=== PATIENT | female | born 1935 | race Caucasian/White ===

== ENCOUNTER → 2018-01-19 11:34 | Outpatient (CLI) | payer MEDICARE, OTHER, SELFPAY ==
--- NOTE | 2018-01-19 11:41 | RAD_ITS ---
STUDY: X-RAY - RIGHT HAND REASON FOR EXAM: Female, 82 years old. inflammatory polyarthropathy TECHNIQUE: 3 view(s) of the hand. COMPARISON: None. FINDINGS: Normal radiocarpal articulation. Normal distal radioulnar joint. Normal visualized carpal bones. Normal carpal articulations There is degenerative arthrosis of the carpometacarpal articulation of the thumb with lateral subluxation of the first metacarpus. Normal second through fifth carpometacarpal joints. Normal metacarpi. There is degenerative arthrosis of the metacarpophalangeal (MCP) joints. Normal interphalangeal joint of the thumb. Normal proximal and distal phalanges of the thumb. Normal metacarpophalangeal joints of the second through fifth fingers. There is diffuse articular joint space narrowing of the proximal and distal interphalangeal joints of the second through fifth fingers, but without erosive changes or periarticular soft tissue swelling. Normal phalanges of the second through fifth fingers. The soft tissue structures are unremarkable. RAD/Hand Min 3 Views IMPRESSION: Degenerative joint disease of the hand and wrist, as described above. Electronically Signed: Varinder Hernandez MD at 19:20 EDT , Service support ,
--- NOTE | 2018-01-19 11:41 | RAD_ITS ---
STUDY: X-RAY - LEFT HAND REASON FOR EXAM: Female, 82 years old. inflammatory polyarthropathy TECHNIQUE: 3 view(s) of the hand. COMPARISON: None. FINDINGS: Normal radiocarpal articulation. Normal distal radioulnar joint. Normal visualized carpal bones. Normal carpal articulations There is degenerative arthrosis of the carpometacarpal articulation of the thumb with lateral subluxation of the first metacarpus. Normal second through fifth carpometacarpal joints. Normal metacarpi. There is degenerative arthrosis of the metacarpophalangeal (MCP) joints. Normal interphalangeal joint of the thumb. Normal proximal and distal phalanges of the thumb. Normal metacarpophalangeal joints of the second through fifth fingers. There is diffuse articular joint space narrowing of the proximal and distal interphalangeal joints of the second through fifth fingers, but without erosive changes or periarticular soft tissue swelling. Normal phalanges of the second through fifth fingers. The soft tissue structures are unremarkable. RAD/Hand Min 3 Views IMPRESSION: Degenerative joint disease of the hand and wrist, as described above. Electronically Signed: Varinder Hernandez MD at 19:21 EDT , Service support ,
[2018-01-19 14:09] LABS: Absolute Lymphocyte Count 1.97 X10^3/ul (0.83-4.51); Absolute Neutrophil Count 5.2 X10^3/uL (2.0-7.7); Basophil# 0.07 X10^3/uL; Basophil% 0.8 % (0-1); Eosinophil# 0.39 X10^3/uL; Eosinophils% 4.5 % (0-5); Hematocrit 45.4 % (37-47); Hemoglobin 14.1 g/dl (12.0-15.0); Lymphocyte # 1.97 X10^3/ul (4.0); Lymphocyte % 22.6 % (19-41); Mean Corp Hgb Conc 31.1 g/gl (32-36); Mean Corpuscular Hgb 26.8 pg (27.0-32.0); Mean Corpuscular Volume 86.3 fL (81-99); Mean Platelet Vol. 10.6 fl (6.2-12.0); Monocyte# 1.08 X10^3/uL; Monocyte% 12.4 % (0-10); Neutrophil % 59.5 % (47-70); Platelet Count 329 K/mm3 (150-450); RBC Distribution Width CV 14.9 % (11.6-14.6); RBC Distribution Width SD 47.5 fl (35.1-43.9); Red Blood Count 5.26 M/mm3 (4.2-5.4); White Blood Count 8.7 K/mm3 (4.4-11.0)
[2018-01-19 14:10] LABS: POSITIVE COUNT NO; POSITIVE DIFFERENTIAL NO; POSITIVE MORPHOLOGY NO
[2018-01-19 14:53] LABS: ALB/GLOB Ratio 0.8 RATIO (0.9-2.4); AST(SGOT) 28 U/L (15-37); Alanine Aminotransfer ALT/SGPT 15 U/L (13-56); Albumin, Serum 3.4 g/dL (3.2-5.0); Alkaline Phosphatase 67 U/L (45-117); Anion Gap 7 (5-15); BUN 22 mg/dL (7-18); BUN/Creat Ratio 25.6 RATIO (10-20); CRP 6.37 mg/L (0.0-3.0); Calcium,Total 8.8 mg/dL (8.5-10.1); Chloride 102 mmol/L (98-107); Creatinine, Serum 0.86 mg/dL (0.55-1.02); EST Glomerular Filtration Rate 67 mL/min (>60); Est Glom Filt Rate - Afr Amer 81 mL/min (>60); Glucose 66 mg/dL (74-106); Potassium 3.7 mmol/L (3.5-5.1); Protein, Total 7.4 g/dL (6.4-8.2); Rheumatoid Factor < 10.0 IU/mL (<15); Sodium Level 142 mmol/L (136-145); T4 Free Direct 1.03 ng/dL (0.76-1.46); Thyroid Stim Hormone (TSH) 4.09 uIU/mL (0.358-3.74)
[2018-01-19 17:50] LABS: Erythrocyte Sedimentation Rate 9 mm/hr (0-30)
[2018-01-20 08:21] LABS: Vitamin D,25 Hydroxy 63.4 ng/mL (29.95-100.01)
[2018-01-21 09:07] LABS: CCP IgG Antibodies 10 units (0-19); HEPATITIS B SURFACE AG Negative (Negative); Hep B Surface Antibodies Non Reactive (.); Hep C Antibodies <0.1 s/co ratio (0.0-0.9)
[2018-01-21 10:33] LABS: ANTINUCLEAR ANTIBODIES DIRECT Negative (Negative)
== END ==
PROVIDERS: Family Provider Family Medicine; PCP Family Medicine; Visit Provider Internal Medicine Rheumatology
DX: M06.4 Inflammatory polyarthropathy (principal); M81.0 Age-related osteoporosis without current pathological fracture; R94.6 Abnormal results of thyroid function studies; Z79.899 Other long term (current) drug therapy; Z79.52 Long term (current) use of systemic steroids; M15.9 Polyosteoarthritis, unspecified; H35.30 Unspecified macular degeneration; H40.9 Unspecified glaucoma; I10 Essential (primary) hypertension; J30.9 Allergic rhinitis, unspecified; E78.5 Hyperlipidemia, unspecified
CPT/HCPCS: 36415; 73130; 80053; 82306; 84439; 84443; 85025; 85652; 86038; 86140; 86200; 86431; 86706; 86803; 87340

== ENCOUNTER → 2018-01-28 10:58 | Outpatient (CLI) | payer MEDICARE, OTHER, SELFPAY ==
--- NOTE | 2018-01-28 10:59 | BD_ITS ---
STUDY: DUAL ENERGY X-RAY ABSORPTIOMETRY / DXA REASON FOR EXAM: Female, 82 years old. The patient is postmenopausal. Loss of height of 2 inches. TECHNIQUE: Bone Mineral Density (BMD) measurements of lumbar spine and right hip were obtained. COMPARISON: Comparison is made with prior study dated September 24, 2011. FINDINGS: Lumbar Spine (L1-L4): g/cm2 (0.986) / T-score (-1.5) / Z-score (0.4) Findings are suggestive of osteopenia with a moderate fracture risk. Right Femur Total: g/cm2 (0.677) / T-score (-2.6) / Z-score (-0.4) Right Femoral Neck: g/cm2 (0.715) / T-score (-2.3) / Z-score (0.0) The T-Scores on the most recent prior examination were: Lumbar Spine (L1-L4): There has been improvement of bone density since the previous examination. Right Femur Total: which represents a worsening of 1.9%. BD/Dexa Bone Density Study IMPRESSION: The patient is considered osteoporotic as outlined below according to World Mack Organization (WHO) criteria with a high fracture risk. There has been worsening of bone density since the previous examination. Reference Information: The T-score is the number of standard deviations above or below the standard which is normal for young adults at their peak bone mineral density. The World Health Organization (WHO) interprets the T-scores as follows: Above -1 Normal bone density Between -1 and -2.5 Osteopenia Equal to / or below -2.5 Osteoporosis As a practical clinical guideline, osteopenia may be graded as follows: Mild -1 through -1.5 Moderate -1.6 through -2.0 Severe -2.1 through -2.4 The Z-score is the number of standard deviations above or below age-matched controls. A Z-score of less than -1.5 would be considered abnormal. References: 1. NIH Osteoporosis and Related Bone Diseases http://www.osteo.org 2. International Society for Clinical Densitometry http://www.iscd.org 3. National Osteoporosis Foundation http://www.nof.org Electronically Signed: Edward Nicole MD at 12:31 EDT Tel [phone], Service support ,
== END ==
PROVIDERS: Family Provider Family Medicine; PCP Family Medicine; Visit Provider Family Medicine
DX: M81.0 Age-related osteoporosis without current pathological fracture (principal)
CPT/HCPCS: 77080

== ENCOUNTER → 2018-04-16 12:50 | Outpatient (CLI) | payer MEDICARE, OTHER, SELFPAY ==
[2018-04-16 13:57] LABS: Absolute Lymphocyte Count 1.71 X10^3/ul (0.83-4.51); Absolute Neutrophil Count 5.5 X10^3/uL (2.0-7.7); Basophil# 0.09 X10^3/uL; Eosinophil# 0.38 X10^3/uL; Eosinophils% 4.4 % (0-5); Hemoglobin 13.1 g/dl (12.0-15.0); Lymphocyte # 1.71 X10^3/ul (4.0); Lymphocyte % 19.9 % (19-41); Mean Corp Hgb Conc 31.2 g/gl (32-36); Mean Corpuscular Volume 86.6 fL (81-99); Mean Platelet Vol. 10.3 fl (6.2-12.0); Monocyte# 0.85 X10^3/uL; Monocyte% 9.9 % (0-10); Neutrophil # 5.54 X10^3/uL (2.7-7.7); Neutrophil % 64.6 % (47-70); Platelet Count 305 K/mm3 (150-450); RBC Distribution Width CV 18.4 % (11.6-14.6); RBC Distribution Width SD 57.1 fl (35.1-43.9); Red Blood Count 4.85 M/mm3 (4.2-5.4); White Blood Count 8.6 K/mm3 (4.4-11.0)
[2018-04-16 14:02] LABS: POSITIVE COUNT NO; POSITIVE DIFFERENTIAL NO; POSITIVE MORPHOLOGY NO
[2018-04-16 14:15] LABS: ALB/GLOB Ratio 0.9 RATIO (0.9-2.4); AST(SGOT) 22 U/L (15-37); Alanine Aminotransfer ALT/SGPT 14 U/L (13-56); Albumin, Serum 3.4 g/dL (3.2-5.0); Alkaline Phosphatase 60 U/L (45-117); Anion Gap 8 (5-15); BUN 23 mg/dL (7-18); BUN/Creat Ratio 27.9 RATIO (10-20); Calcium,Total 8.8 mg/dL (8.5-10.1); Chloride 105 mmol/L (98-107); Creatinine, Serum 0.82 mg/dL (0.55-1.02); EST Glomerular Filtration Rate 70 mL/min (>60); Est Glom Filt Rate - Afr Amer 85 mL/min (>60); Globulin 3.8 g/dL (2.2-4.2); Glucose 76 mg/dL (74-106); Potassium 3.8 mmol/L (3.5-5.1); Protein, Total 7.2 g/dL (6.4-8.2); Sodium Level 142 mmol/L (136-145)
== END ==
PROVIDERS: Family Provider Family Medicine; PCP Family Medicine; Visit Provider Internal Medicine Rheumatology
DX: M06.09 Rheumatoid arthritis without rheumatoid factor, multiple sites (principal); Z79.899 Other long term (current) drug therapy; Z79.52 Long term (current) use of systemic steroids; M15.9 Polyosteoarthritis, unspecified; H35.30 Unspecified macular degeneration; H40.9 Unspecified glaucoma; I10 Essential (primary) hypertension; J30.9 Allergic rhinitis, unspecified; M81.0 Age-related osteoporosis without current pathological fracture; E78.5 Hyperlipidemia, unspecified
CPT/HCPCS: 36415; 80053; 85025

== ENCOUNTER → 2018-07-06 10:59 | Outpatient (CLI) | payer MEDICARE, OTHER, SELFPAY ==
[2018-07-06 11:53] LABS: Absolute Lymphocyte Count 1.57 X10^3/ul (0.83-4.51); Basophil# 0.08 X10^3/uL; Eosinophil# 0.25 X10^3/uL; Eosinophils% 3.3 % (0-5); Hematocrit 42.2 % (37-47); Hemoglobin 13.2 g/dl (12.0-15.0); Lymphocyte # 1.57 X10^3/ul (4.0); Lymphocyte % 20.4 % (19-41); Mean Corp Hgb Conc 31.3 g/gl (32-36); Mean Corpuscular Hgb 27.6 pg (27.0-32.0); Mean Corpuscular Volume 88.1 fL (81-99); Mean Platelet Vol. 10.1 fl (6.2-12.0); Monocyte# 0.78 X10^3/uL; Monocyte% 10.1 % (0-10); Neutrophil % 65.1 % (47-70); Platelet Count 317 K/mm3 (150-450); RBC Distribution Width CV 16.5 % (11.6-14.6); RBC Distribution Width SD 52.3 fl (35.1-43.9); Red Blood Count 4.79 M/mm3 (4.2-5.4); White Blood Count 7.7 K/mm3 (4.4-11.0)
[2018-07-06 11:56] LABS: POSITIVE COUNT NO; POSITIVE DIFFERENTIAL NO; POSITIVE MORPHOLOGY NO
[2018-07-06 12:25] LABS: BUN 25 mg/dL (7-18); Creatinine, Serum 0.89 mg/dL (0.55-1.02); Glucose 78 mg/dL (74-106)
[2018-07-06 12:26] LABS: ALB/GLOB Ratio 0.8 RATIO (0.9-2.4); AST(SGOT) 24 U/L (15-37); Alanine Aminotransfer ALT/SGPT 17 U/L (13-56); Albumin, Serum 3.3 g/dL (3.2-5.0); Alkaline Phosphatase 69 U/L (45-117); Anion Gap 8 (5-15); BUN/Creat Ratio 28.2 RATIO (10-20); Calcium,Total 8.9 mg/dL (8.5-10.1); Chloride 103 mmol/L (98-107); EST Glomerular Filtration Rate 65 mL/min (>60); Est Glom Filt Rate - Afr Amer 78 mL/min (>60); Globulin 4.2 g/dL (2.2-4.2); Potassium 4.1 mmol/L (3.5-5.1); Protein, Total 7.5 g/dL (6.4-8.2); Sodium Level 142 mmol/L (136-145); T4 Free Direct 1.05 ng/dL (0.76-1.46); Thyroid Stim Hormone (TSH) 3.53 uIU/mL (0.358-3.74)
== END ==
PROVIDERS: Family Provider Family Medicine; PCP Family Medicine; Referring Provider Family Medicine; Visit Provider Family Medicine
DX: M06.09 Rheumatoid arthritis without rheumatoid factor, multiple sites (principal); Z79.899 Other long term (current) drug therapy; Z79.52 Long term (current) use of systemic steroids; M15.9 Polyosteoarthritis, unspecified; R94.6 Abnormal results of thyroid function studies; I10 Essential (primary) hypertension
CPT/HCPCS: 36415; 80053; 84439; 84443; 85025

== ENCOUNTER → 2018-10-14 13:58 | Outpatient (CLI) | payer MEDICARE, OTHER, SELFPAY ==
[2017-10-11 15:14] VITALS: BMI 21.7
[2018-10-14 15:41] LABS: Absolute Lymphocyte Count 1.32 X10^3/ul (0.83-4.51); Absolute Neutrophil Count 5.7 X10^3/uL (2.0-7.7); Basophil# 0.07 X10^3/uL; Basophil% 0.9 % (0-1); Eosinophil# 0.22 X10^3/uL; Eosinophils% 2.7 % (0-5); Hematocrit 40.6 % (37-47); Hemoglobin 12.3 g/dl (12.0-15.0); Lymphocyte # 1.32 X10^3/ul (4.0); Lymphocyte % 16.5 % (19-41); Mean Corp Hgb Conc 30.3 g/gl (32-36); Mean Corpuscular Hgb 27.1 pg (27.0-32.0); Mean Corpuscular Volume 89.4 fL (81-99); Mean Platelet Vol. 10.2 fl (6.2-12.0); Monocyte# 0.67 X10^3/uL; Monocyte% 8.4 % (0-10); Neutrophil # 5.71 X10^3/uL (2.7-7.7); Neutrophil % 71.3 % (47-70); Platelet Count 307 K/mm3 (150-450); RBC Distribution Width CV 17.5 % (11.6-14.6); RBC Distribution Width SD 55.2 fl (35.1-43.9); Red Blood Count 4.54 M/mm3 (4.2-5.4)
[2018-10-14 16:02] LABS: POSITIVE COUNT NO; POSITIVE DIFFERENTIAL NO; POSITIVE MORPHOLOGY NO
[2018-10-14 16:15] LABS: BUN 19 mg/dL (7-18); Creatinine, Serum 0.89 mg/dL (0.55-1.02); Glucose 74 mg/dL (74-106)
[2018-10-14 16:16] LABS: ALB/GLOB Ratio 0.8 RATIO (0.9-2.4); AST(SGOT) 21 U/L (15-37); Alanine Aminotransfer ALT/SGPT 15 U/L (13-56); Albumin, Serum 3.3 g/dL (3.2-5.0); Alkaline Phosphatase 79 U/L (45-117); Anion Gap 10 (5-15); BUN/Creat Ratio 21.4 RATIO (10-20); Calcium,Total 8.5 mg/dL (8.5-10.1); Chloride 104 mmol/L (98-107); EST Glomerular Filtration Rate 65 mL/min (>60); Est Glom Filt Rate - Afr Amer 78 mL/min (>60); Potassium 3.8 mmol/L (3.5-5.1); Protein, Total 7.3 g/dL (6.4-8.2); Sodium Level 144 mmol/L (136-145)
== END ==
PROVIDERS: Family Provider Family Medicine; PCP Family Medicine; Referring Provider Internal Medicine Rheumatology; Visit Provider Internal Medicine Rheumatology
DX: M06.09 Rheumatoid arthritis without rheumatoid factor, multiple sites (principal); Z79.899 Other long term (current) drug therapy; Z79.52 Long term (current) use of systemic steroids; M15.9 Polyosteoarthritis, unspecified; H35.30 Unspecified macular degeneration; H40.9 Unspecified glaucoma; I10 Essential (primary) hypertension; J30.9 Allergic rhinitis, unspecified; M81.0 Age-related osteoporosis without current pathological fracture; E78.5 Hyperlipidemia, unspecified
CPT/HCPCS: 36415; 80053; 85025

== ENCOUNTER → 2018-11-05 11:32 | Outpatient (CLI) | payer MEDICARE, OTHER, SELFPAY ==
--- NOTE | 2018-11-05 11:38 | US_ITS ---
STUDY: ULTRASOUND OF THE FEMALE PELVIS - COMPLETE REASON FOR EXAM: Female, 83 years old. Pelvic pain. Previous hysterectomy. LMP: TECHNIQUE: Transabdominal TECHNICAL QUALITY: Adequate. COMPARISON: None. FINDINGS: The uterus is surgically absent. Neither ovary definitely seen. There is no fluid in the cul-de-sac. No evidence for mass. US/Pelvic (Non ) IMPRESSION: No gross acute abnormality status post hysterectomy and bilateral oophorectomy. Electronically Signed: Anthony Mcclelland MD at 17:07 EST , Service support ,
== END ==
PROVIDERS: Family Provider Family Medicine; PCP Family Medicine; Referring Provider Urology; Visit Provider Urology
DX: R10.2 Pelvic and perineal pain (principal)
CPT/HCPCS: 76856

== ENCOUNTER → 2019-01-17 | Outpatient (CLI) | payer MEDICARE, OTHER, SELFPAY ==
[2017-10-11 15:14] VITALS: BMI 21.7
[2019-01-17 15:43] LABS: Basophil# 0.04 X10^3/uL; Basophil% 0.4 % (0-1); Eosinophil# 0.05 X10^3/uL; Eosinophils% 0.5 % (0-5); Hematocrit 37.7 % (37-47); Hemoglobin 11.5 g/dl (12.0-15.0); Lymphocyte % 10.2 % (19-41); Mean Corp Hgb Conc 30.5 g/gl (32-36); Mean Corpuscular Hgb 26.3 pg (27.0-32.0); Mean Corpuscular Volume 86.3 fL (81-99); Mean Platelet Vol. 9.8 fl (6.2-12.0); Monocyte# 0.71 X10^3/uL; Monocyte% 7.2 % (0-10); Neutrophil # 8.02 X10^3/uL (2.7-7.7); Neutrophil % 81.5 % (47-70); Platelet Count 460 K/mm3 (150-450); RBC Distribution Width CV 18.7 % (11.6-14.6); RBC Distribution Width SD 57.1 fl (35.1-43.9); Red Blood Count 4.37 M/mm3 (4.2-5.4); White Blood Count 9.8 K/mm3 (4.4-11.0)
[2019-01-17 15:44] LABS: POSITIVE COUNT NO; POSITIVE DIFFERENTIAL NO; POSITIVE MORPHOLOGY NO
[2019-01-17 15:50] LABS: ALB/GLOB Ratio 0.5 RATIO (0.9-2.4); AST(SGOT) 15 U/L (15-37); Alanine Aminotransfer ALT/SGPT 13 U/L (13-56); Albumin, Serum 2.6 g/dL (3.2-5.0); Alkaline Phosphatase 79 U/L (45-117); Anion Gap 7 (5-15); BUN 26 mg/dL (7-18); Calcium,Total 8.6 mg/dL (8.5-10.1); Chloride 100 mmol/L (98-107); Creatinine, Serum 0.96 mg/dL (0.55-1.02); EST Glomerular Filtration Rate 59 mL/min (>60); Est Glom Filt Rate - Afr Amer 71 mL/min (>60); Glucose 94 mg/dL (74-106); Potassium 4.3 mmol/L (3.5-5.1); Protein, Total 7.6 g/dL (6.4-8.2); Sodium Level 137 mmol/L (136-145)
== END | disposition home or self-care (01) ==
LOC: MTLAB 13:32
PROVIDERS: Family Provider Family Medicine; PCP Family Medicine; Referring Provider Internal Medicine Rheumatology; Visit Provider Internal Medicine Rheumatology
DX: M06.00 Rheumatoid arthritis without rheumatoid factor, unspecified site (principal); Z79.899 Other long term (current) drug therapy; Z79.52 Long term (current) use of systemic steroids; M15.9 Polyosteoarthritis, unspecified
CPT/HCPCS: 36415; 80053; 85025

== ENCOUNTER 2019-01-23 14:24 | Emergency (ER) | payer MEDICARE, OTHER, SELFPAY ==
[2019-01-23 14:25] VITALS: BP 151/65; PULSE 63; RESP 17; TEMP 36.5; O2SAT 93; BMI 18.3
--- NOTE | 2019-01-23 14:44 | EKG12_ITS ---
Test Reason : N/V Blood Pressure : / mmHG Vent. Rate : 085 BPM Atrial Rate : 085 BPM P-R Int : 174 ms QRS Dur : 122 ms QT Int : 426 ms P-R-T Axes : 079 018 -54 degrees QTc Int : 506 ms Sinus rhythm with Premature atrial complexes with Aberrant conduction Right bundle branch block T wave abnormality, consider inferolateral ischemia Abnormal ECG Confirmed by RAMESH HOFF, CHASIDY ([id number]), food expeditor ALTON THORNTON ([id number]) on 01/25/2019 3:58:50 PM Referred By: ELAINE Confirmed By:CHASIDY CHANDLER MD
--- NOTE | 2019-01-23 14:45 | CT_ITS ---
STUDY: CT ABDOMEN AND PELVIS WITHOUT CONTRAST REASON FOR EXAM: Female, 83 years old. Abdominal pain RADIATION DOSAGE (If Supplied By Facility): CTDIvol = ( 8.44 ) mGy, DLP = ( 352.23 ) mGycm TECHNIQUE: Transaxial images were obtained from the dome of the diaphragm to the symphysis pubis without oral contrast, and without intravenous contrast. Sagittal and coronal images were reconstructed. Individualized dose optimization techniques were used for this CT. COMPARISON: None. FINDINGS: The visualized lung bases are unremarkable. The visualized portions of the heart are within normal limits. Normal liver. Nonvisualization of the gallbladder. No dilatation of the extrahepatic biliary system. Normal spleen. Normal pancreas. Normal bilateral adrenal glands. Normal right kidney. Normal left kidney. Normal visualized stomach. Normal small intestine. Diverticulosis of the colon. Diffuse colonic fecal retention. The appendix is not visualized. Aneurysm of the abdominal aorta with aortobiiliac stent graft noted. Maximum diameter is approximately 3.6 cm Normal inferior vena cava. Normal retroperitoneum. Normal urinary bladder. Mild fatty density at the femoral canals. Normal abdominal wall. Degenerative vertebral changes. Grade 1 spondylolisthesis at L4-5. Moderate compression of T12 with depressed superior endplate. Previous ORIF of the left femur. CT/Abdomen/Pelvis without Cont IMPRESSION: Colonic diverticulosis. Abdominal aortic aneurysm with aortobiiliac stent graft noted. Electronically Signed: Jr Horvath DO at 15:33 EDT Tel [phone], Service support ,
[2019-01-23 14:53] LABS: Absolute Lymphocyte Count 1.11 X10^3/ul (0.83-4.51); Absolute Neutrophil Count 9.3 X10^3/uL (2.0-7.7); Basophil# 0.05 X10^3/uL; Basophil% 0.5 % (0-1); Eosinophil# 0.03 X10^3/uL; Eosinophils% 0.3 % (0-5); Hematocrit 38.9 % (37-47); Hemoglobin 12.1 g/dl (12.0-15.0); Lymphocyte # 1.11 X10^3/ul (4.0); Mean Corp Hgb Conc 31.1 g/gl (32-36); Mean Corpuscular Hgb 26.9 pg (27.0-32.0); Mean Corpuscular Volume 86.6 fL (81-99); Mean Platelet Vol. 8.9 fl (6.2-12.0); Monocyte# 0.61 X10^3/uL; Monocyte% 5.5 % (0-10); Neutrophil # 9.28 X10^3/uL (2.7-7.7); Neutrophil % 83.5 % (47-70); Platelet Count 451 K/mm3 (150-450); RBC Distribution Width CV 18.5 % (11.6-14.6); RBC Distribution Width SD 57.8 fl (35.1-43.9); Red Blood Count 4.49 M/mm3 (4.2-5.4); White Blood Count 11.1 K/mm3 (4.4-11.0)
[2019-01-23 14:56] LABS: POSITIVE COUNT NO; POSITIVE DIFFERENTIAL NO; POSITIVE MORPHOLOGY NO
[2019-01-23 15:12] LABS: ALB/GLOB Ratio 0.5 RATIO (0.9-2.4); AST(SGOT) 18 U/L (15-37); Alanine Aminotransfer ALT/SGPT 12 U/L (13-56); Albumin, Serum 2.7 g/dL (3.2-5.0); Alkaline Phosphatase 84 U/L (45-117); Anion Gap 7 (5-15); BUN 26 mg/dL (7-18); BUN/Creat Ratio 29.8 RATIO (10-20); Calcium,Total 8.6 mg/dL (8.5-10.1); Chloride 99 mmol/L (98-107); Creatinine, Serum 0.87 mg/dL (0.55-1.02); EST Glomerular Filtration Rate 66 mL/min (>60); Est Glom Filt Rate - Afr Amer 80 mL/min (>60); Estimated Creatinine Clearance 33.43 ml/min; Globulin 5.2 g/dL (2.2-4.2); Glucose 161 mg/dL (74-106); Lipase 216 U/L (73-393); Potassium 3.7 mmol/L (3.5-5.1); Protein, Total 7.9 g/dL (6.4-8.2); Sodium Level 136 mmol/L (136-145)
[2019-01-23] MEDS: Ondansetron 4 MG/2 ML Vial IV (15:14)
[2019-01-23] MEDS: 0.9% Normal Saline 1,000 ML 125 ML IV (15:14)
[2019-01-23 16:43] LABS: Bacteria 0 SEEN /hpf (None Seen); Mucous, Urine 0 SEEN /hpf (<or=2+); Red Blood Cells-Urine 0 SEEN /hpf (0-5); Squamous Epithelial Cells - UA 0 SEEN /hpf (5-10)
[2019-01-23 17:07] LABS: Color, Urine Yellow (Yellow); Glucose, Dipstick Normal (Normal); Ketone-Dipstick Negative (Negative); Leukocyte Esterase-Dipstick 500 /ul (Negative); Nitrite-Dipstick Negative (Negative); Occult Blood-Urine 10 /ul (Negative); Protein-Dipstick 15 mg/dl (Negative); Urine Bilirubin Dipstick Negative (Negative); Urine Clarity Sl. Cloudy (Clear); Urine Urobilinogen Normal (Normal)
[2019-01-23 17:15] LABS: White Blood Cells 0-5 SEEN /hpf (0-5)
--- NOTE | 2019-01-23 17:35 | ED.DCSUM_ITS ---
- ER Visit Summary Date of Service: 01/23/19 Chief Complaint: [Nausea and vomiting as well as abdominal discomfort ] History of Present Illness: The patient is a 83 F presents the emergency department with symptoms for over 3 weeks. Patient had decreased appetite. Decreased p.o. intake. She is lost about 8 pounds in the last 2 weeks. She describes some diffuse abdominal discomfort. Patient was seen by her primary care physician was started on Paxil yesterday. Patient denies any fevers. She denies any blood in her stool or black tarry stool. She denies urinary symptoms. She denies falls or head injuries. [Patient was seen by her primary care physician a few days ago and started on Paxil and vomited x2 after taking it.] Physical Examination: [HEENT-PERRLA, EOMI. Cranial nerves II through XII grossly intact. TMs clear. Mucous membranes moist. No adenopathy. Cardiovascular-regular rate and rhythm without murmur or ectopy Lungs-clear to auscultation, chest wall stable without crepitus or subcu emphysema Abdomen-normoactive bowel sounds, soft. Patient has some mild diffuse tenderness. There is no rebound, rigidity, or perineal signs. Extremities-intact ?4, normal range of motion, normal pulses, atraumatic] Test Results: [EKG obtained arrival shows sinus rhythm with a right bundle branch block and some nonspecific ST changes. Patient also noted to have PACs with occasional PVCs. CBC with differential obtained showed a white count of 11.1, hemoglobin 12, hematocrit 39, placed 451. Chemistries unremarkable. LFTs were normal. Lipase was 216. Urinalysis was normal. CT scan of the abdomen pelvis showed nothing acute.] Emergency Department Course and Treatment: [Patient was medicated with Zofran and was given a liter normal same fluid bolus.] Treatment Plan: [Patient given a prescription for Zofran. Etiology of her symptoms unclear. Patient to continue follow-up with primary care physician.] Disposition: [Discharged home stable condition] Impression: [Abdominal pain Nausea and vomiting] This note was generated with [employer] software. It may contain incorrect words, spelling, and punctuation that were not noted in review of the chart prior to signing ED Disposition - Plan for ED Patient: Referrals: Renetta Carson MD [Primary Care Provider] -
--- NOTE | 2019-01-23 17:35 | ED.DEP ---
ED Disposition - Plan for ED Patient: Instructions: ED Nausea Vomiting, ED Abdominal Pain Unkn Cause Prescriptions: Ondansetron [Zofran Odt] 4 mg PO Q8H PRN PRN #10 tab PRN Reason: Nausea Referrals: Renetta Carson MD [Primary Care Provider] - 3-5 Days
[2019-01-23] MEDS: Ondansetron ODT 4 MG Tablet PO (18:08)
[2019-01-23 18:09] VITALS: BP 142/64; PULSE 80; RESP 16; O2SAT 94
== END 2019-01-23 18:12 | disposition home or self-care (01) ==
LOC: ED 15:19
PROVIDERS: Emergency Provider Emergency Medicine; Family Provider Family Medicine; PCP Family Medicine
DX: R10.84 Generalized abdominal pain (principal); R11.2 Nausea with vomiting, unspecified; Z87.891 Personal history of nicotine dependence
CPT/HCPCS: 74176; 80053; 81001; 83690; 84484; 85025; 93005; 96361; 96374; 99283; J7030; J2405

== ENCOUNTER → 2019-04-05 | Outpatient (CLI) | payer MEDICARE, OTHER, SELFPAY ==
[2019-04-05 14:11] LABS: ALB/GLOB Ratio 0.7 RATIO (0.9-2.4); AST(SGOT) 20 U/L (15-37); Alanine Aminotransfer ALT/SGPT 14 U/L (13-56); Albumin, Serum 3.1 g/dL (3.2-5.0); Alkaline Phosphatase 97 U/L (45-117); Anion Gap 9 (5-15); BUN 21 mg/dL (7-18); BUN/Creat Ratio 25.5 RATIO (10-20); Chloride 102 mmol/L (98-107); Creatinine, Serum 0.82 mg/dL (0.55-1.02); EST Glomerular Filtration Rate 70 mL/min (>60); Est Glom Filt Rate - Afr Amer 85 mL/min (>60); Globulin 4.7 g/dL (2.2-4.2); Glucose 82 mg/dL (74-106); Potassium 3.9 mmol/L (3.5-5.1); Protein, Total 7.8 g/dL (6.4-8.2); Sodium Level 140 mmol/L (136-145)
[2019-04-05 15:21] LABS: Absolute Lymphocyte Count 1.53 X10^3/ul (0.83-4.51); Absolute Neutrophil Count 6.7 X10^3/uL (2.0-7.7); Basophil# 0.06 X10^3/uL; Basophil% 0.7 % (0-1); Eosinophil# 0.09 X10^3/uL; Hematocrit 41.3 % (37-47); Hemoglobin 12.9 g/dl (12.0-15.0); Lymphocyte # 1.53 X10^3/ul (4.0); Lymphocyte % 17.1 % (19-41); Mean Corp Hgb Conc 31.2 g/gl (32-36); Mean Corpuscular Hgb 27.3 pg (27.0-32.0); Mean Corpuscular Volume 87.3 fL (81-99); Mean Platelet Vol. 9.5 fl (6.2-12.0); Monocyte# 0.58 X10^3/uL; Monocyte% 6.5 % (0-10); Neutrophil # 6.67 X10^3/uL (2.7-7.7); Neutrophil % 74.6 % (47-70); Platelet Count 375 K/mm3 (150-450); RBC Distribution Width CV 18.7 % (11.6-14.6); RBC Distribution Width SD 59.9 fl (35.1-43.9); Red Blood Count 4.73 M/mm3 (4.2-5.4); White Blood Count 8.9 K/mm3 (4.4-11.0)
[2019-04-05 15:24] LABS: POSITIVE COUNT NO; POSITIVE DIFFERENTIAL NO; POSITIVE MORPHOLOGY NO
== END | disposition home or self-care (01) ==
LOC: MTLAB 11:52
PROVIDERS: Family Provider Family Medicine; PCP Family Medicine; Referring Provider Internal Medicine Rheumatology; Visit Provider Internal Medicine Rheumatology
DX: M06.00 Rheumatoid arthritis without rheumatoid factor, unspecified site (principal); Z79.899 Other long term (current) drug therapy; Z79.52 Long term (current) use of systemic steroids; M15.9 Polyosteoarthritis, unspecified; H35.30 Unspecified macular degeneration; H40.9 Unspecified glaucoma; I10 Essential (primary) hypertension; J30.9 Allergic rhinitis, unspecified; M81.0 Age-related osteoporosis without current pathological fracture; E78.5 Hyperlipidemia, unspecified
CPT/HCPCS: 36415; 80053; 85025

== ENCOUNTER → 2019-06-29 11:42 | Outpatient (CLI) | payer MEDICARE, OTHER, SELFPAY ==
[2019-06-29 14:32] LABS: Absolute Lymphocyte Count 1.66 X10^3/uL (0.83-4.51); Absolute Neutrophil Count 8.1 X10^3/uL (2.0-7.7); Basophil# 0.12 X10^3/uL; Basophil% 1.1 % (0-1); Eosinophil# 0.14 X10^3/uL; Eosinophils% 1.3 % (0-5); Hematocrit 43.5 % (37-47); Hemoglobin 13.3 g/dL (12.0-15.0); Lymphocyte # 1.66 X10^3/ul (4.0); Lymphocyte % 15.5 % (19-41); Mean Corp Hgb Conc 30.6 g/dL (32-36); Mean Corpuscular Hgb 27.1 pg (27.0-32.0); Mean Corpuscular Volume 88.6 fL (81-99); Mean Platelet Vol. 9.7 fl (6.2-12.0); Monocyte# 0.65 X10^3/uL; Monocyte% 6.1 % (0-10); NRBC Flagged by Analyzer 0 % (0-5); Neutrophil # 8.08 X10^3/uL (2.7-7.7); Neutrophil % 75.4 % (47-70); Platelet Count 436 K/mm3 (150-450); RBC Distribution Width SD 53.1 fl (35.1-43.9); Red Blood Count 4.91 M/mm3 (4.2-5.4); White Blood Count 10.7 K/mm3 (4.4-11.0)
[2019-06-29 14:46] LABS: ALB/GLOB Ratio 0.6 RATIO (0.9-2.4); AST(SGOT) 22 U/L (15-37); Alanine Aminotransfer ALT/SGPT 15 U/L (13-56); Albumin, Serum 3.1 g/dL (3.2-5.0); Alkaline Phosphatase 101 U/L (45-117); Anion Gap 6 (5-15); BUN 28 mg/dL (7-18); BUN/Creat Ratio 28.3 RATIO (10-20); Calcium,Total 9.4 mg/dL (8.5-10.1); Chloride 100 mmol/L (98-107); Creatinine, Serum 0.99 mg/dL (0.55-1.02); EST Glomerular Filtration Rate 57 mL/min (>60); Est Glom Filt Rate - Afr Amer 69 mL/min (>60); Globulin 5.2 g/dL (2.2-4.2); Glucose 108 mg/dL (74-106); Potassium 4.4 mmol/L (3.5-5.1); Protein, Total 8.3 g/dL (6.4-8.2); Sodium Level 137 mmol/L (136-145)
== END ==
PROVIDERS: Family Provider Family Medicine; PCP Family Medicine; Referring Provider Internal Medicine Rheumatology; Visit Provider Internal Medicine Rheumatology
DX: M06.00 Rheumatoid arthritis without rheumatoid factor, unspecified site (principal); Z79.899 Other long term (current) drug therapy; Z79.52 Long term (current) use of systemic steroids; M15.9 Polyosteoarthritis, unspecified; H35.30 Unspecified macular degeneration; H40.9 Unspecified glaucoma; I10 Essential (primary) hypertension; J30.9 Allergic rhinitis, unspecified; M81.0 Age-related osteoporosis without current pathological fracture; E78.5 Hyperlipidemia, unspecified
CPT/HCPCS: 36415; 80053; 85025

== ENCOUNTER 2019-08-12 08:49 | Emergency (ER) | payer MEDICARE, OTHER, SELFPAY ==
[2019-08-12 08:50] VITALS: BP 159/83; PULSE 80; RESP 15; TEMP 37.1; O2SAT 96; BMI 19.3
--- NOTE | 2019-08-12 08:58 | EKG12_ITS ---
Test Reason : Blood Pressure : / mmHG Vent. Rate : 069 BPM Atrial Rate : 069 BPM P-R Int : 178 ms QRS Dur : 152 ms QT Int : 436 ms P-R-T Axes : 090 029 -18 degrees QTc Int : 467 ms Sinus rhythm with frequent Premature ventricular complexes Right bundle branch block T wave abnormality, consider inferolateral ischemia Abnormal ECG Confirmed by ALBERTO HOFF, ERIC ([id number]), publications editor ADRIENNE KAMARA ([id number]) on 08/15/2019 10:00:24 AM Referred By: SHAHLA Confirmed By:ERIC DOMINGUEZ MD
--- NOTE | 2019-08-12 08:58 | RAD_ITS ---
STUDY: X-RAY CHEST REASON FOR EXAM: Female, 83 years old. Acute onset of weakness. TECHNIQUE: Single AP portable view of the chest. COMPARISON: Comparison is made with prior examination dated October 07, 2017. FINDINGS: EKG electrode are seen. Hyperinflation with stable elevation of the right hemidiaphragm. There is no demonstrated pleural abnormality. Normal size heart. Normal mediastinum and ricardo. Normal visualized pulmonary arteries. There is atherosclerotic calcification of the aortic arch with tortuosity. There are diffuse degenerative changes of the visualized thoracic spine. Normal visualized ribs, clavicles, and shoulders. An endoluminal stent grafting is seen in the abdominal aorta. RAD/Chest 1 View (Portable) IMPRESSION: Hyperinflation. No acute abnormality is seen. Electronically Signed: Edward Nicole, at 9:53 EDT , Service support ,
--- NOTE | 2019-08-12 08:59 | ED.VIS.GEN ---
History of Present Illness Chief Complaint: Weakness Detail of Chief Complaint: Generalized weakness and feeling hot Informant: Patient Onset: Today Current Severity: Mild Maximum Severity: Moderate Narrative: Patient states she woke at 6 AM this morning feeling very hot. She feels generally weak. She felt fine when she went to bed last night. She states she has had hot flashes previously, but they were typically only last a few minutes. This is persisted for several hours. Patient denies recent URI symptoms. She denies chest pain or shortness of breath. She denies abdominal pain, nausea, or vomiting. She does report some dysuria. She has a history of rheumatoid arthritis and is currently on methotrexate and Humira. Past Medical History - Allergies and Home Meds Allergies/Adverse Reactions: Allergies metronidazole [From Flagyl] Allergy (Verified 08/12/19 09:59) Hives acetaminophen [From Darvocet-N] Adverse Reaction (Verified 08/12/19 09:59) Nausea/Vom/Diarrhea codeine Adverse Reaction (Verified 08/12/19 09:59) Vomiting hydrocodone [From Vicodin] Adverse Reaction (Verified 08/12/19 09:59) Vomiting naproxen [From Aleve] Adverse Reaction (Verified 08/12/19 09:59) Nausea/Vom/Diarrhea oxycodone [From Percocet] Adverse Reaction (Verified 08/12/19 09:59) Nausea/Vom/Diarrhea propoxyphene [From Darvocet-N] Adverse Reaction (Verified 08/12/19 09:59) Nausea/Vom/Diarrhea Primary Care Physician: Renetta Carson MD [Primary Care Provider] - Prior records reviewed: Yes Past Medical History: - - Reviewed Surgical History: hysterectomy, total knee arthroplasty - Left, - - B/L Carpal tunnel Lives: Alone Smoking Status: Former smoker Review of Systems General: Reports: - - Feels hot but no noted fever.. Denies: Chills, Fever, Malaise Eyes: Denies: Visual changes - bilaterally ENT: Denies: Bilateral ear pain Cardiovascular: Denies: Chest pain Respiratory: Denies: Dyspnea, Cough Gastrointestinal: Denies: Abdominal pain, Nausea, Vomiting, Diarrhea Genitourinary: Reports: Dysuria Musculoskeletal: Denies: Back pain, Extremity Pain Skin: Denies: Rash Neurological: Denies: Headache Endocrine: Denies: Polyuria, Polydipsia Hematologic: Denies: Easy bruising Allergy: Denies: Uticaria Physical Exam Vital Signs/Narrative: Vital Signs Temp Pulse Resp BP Pulse Ox 08/12/19 08:50 98.7 F 80 15 159/83 H 96 Inital Vital Signs reviewed: Yes General: Well nourished, Well developed Head: Normocephalic ENT: Moist mucous membranes Neck: Supple Cardiovascular: Irregular Respiratory: No distress, CTA bilaterally Abdomen: Soft, Nontender Extremities: Nontender, No edema Skin: Normal color, No rash Neurological: Alert, Oriented x3, Normal Strength, Normal Sensation Psychological: Normal affect Diagnostic/Tx/Re-eval Impressions Chest X-Ray 08/12/19 08:58 IMPRESSION: Hyperinflation. No acute abnormality is seen. Electronically Signed: Edward Nicole, at 9:53 EDT , Service support , 08/12/19 08:58 Chest 1 View (Portable) [RAD] Stat Laboratory Results 08/12/19 08/12/19 08/12/19 08:55 08:55 09:44 WBC 9.2 RBC 4.76 Hgb 13.2 Hct 42.5 MCV 89.3 MCH 27.7 MCHC 31.1 L RDW Std Deviation 53.9 H RDW Coeff of Niranjan 16.7 H Plt Count 361 MPV 9.5 Immature Gran % (Auto) 0.300 Neut % (Auto) 73.6 H Lymph % (Auto) 16.1 L Pickett % (Auto) 7.3 Eos % (Auto) 1.6 Baso % (Auto) 1.1 H Absolute Neuts (auto) 6.8 Absolute Lymphs (auto) 1.48 Nucleated RBC % 0 Sodium 137 Potassium 3.9 Chloride 102 Carbon Dioxide 28.0 Anion Gap 7 BUN 19 H Creatinine 0.75 Estim Creat Clear Calc 30.68 Est GFR (MDRD) Af Amer 94 Est GFR (MDRD) Non-Af 78 BUN/Creatinine Ratio 25.2 H Glucose 108 H Calcium 8.9 Troponin I 0.019 TSH 4.02 H Urine Color Yellow Urine Clarity Sl. Cloudy Urine pH 7.0 Ur Specific [place] 1.010 Urine Protein Negative Urine Glucose (UA) Normal Urine Ketones 15 H Urine Occult Blood Negative Urine Nitrite Negative Urine Bilirubin Negative Urine Urobilinogen Normal Ur Leukocyte Esterase Negative Urine RBC 0 SEEN Urine WBC 0 SEEN Ur Squamous Epith Cells 0-5 SEEN Urine Bacteria 1+ Urine Mucus 0 SEEN - EKG Initial EKG Interpretation: Sinus Rhythm - Sinus at 69 with frequent PVCs. Right bundle branch block is noted. This is unchanged when compared to prior study from January 2019. - Medical Decision Making Patient was given IV fluids. On repeat evaluation she does feel improved. She is able to ambulate in the halls without difficulty. She will be discharged home with her daughter at this time. She was encouraged to return for any worsening symptoms or concerns. Patient and daughter in agreement the plan. ED Disposition - Plan for ED Patient: Disposition: Home or Assisted Living Diagnosis: Weakness Instructions: WEAKNESS, Unk Cause Referrals: Renetta Carson MD [Primary Care Provider] - 3-5 Days if not improving
[2019-08-12 09:07] LABS: Absolute Lymphocyte Count 1.48 X10^3/uL (0.83-4.51); Absolute Neutrophil Count 6.8 X10^3/uL (2.0-7.7); Basophil% 1.1 % (0-1); Eosinophil# 0.15 X10^3/uL; Eosinophils% 1.6 % (0-5); Hematocrit 42.5 % (37-47); Hemoglobin 13.2 g/dL (12.0-15.0); Lymphocyte # 1.48 X10^3/ul (4.0); Lymphocyte % 16.1 % (19-41); Mean Corp Hgb Conc 31.1 g/dL (32-36); Mean Corpuscular Hgb 27.7 pg (27.0-32.0); Mean Corpuscular Volume 89.3 fL (81-99); Mean Platelet Vol. 9.5 fl (6.2-12.0); Monocyte# 0.67 X10^3/uL; Monocyte% 7.3 % (0-10); NRBC Flagged by Analyzer 0 % (0-5); Neutrophil # 6.75 X10^3/uL (2.7-7.7); Neutrophil % 73.6 % (47-70); Platelet Count 361 K/mm3 (150-450); RBC Distribution Width CV 16.7 % (11.6-14.6); RBC Distribution Width SD 53.9 fl (35.1-43.9); Red Blood Count 4.76 M/mm3 (4.2-5.4); White Blood Count 9.2 K/mm3 (4.4-11.0)
[2019-08-12 09:29] LABS: Anion Gap 7 (5-15); BUN 19 mg/dL (7-18); BUN/Creat Ratio 25.2 RATIO (10-20); Calcium,Total 8.9 mg/dL (8.5-10.1); Chloride 102 mmol/L (98-107); Creatinine, Serum 0.75 mg/dL (0.55-1.02); EST Glomerular Filtration Rate 78 mL/min (>60); Est Glom Filt Rate - Afr Amer 94 mL/min (>60); Estimated Creatinine Clearance 30.68 ml/min; Glucose 108 mg/dL (74-106); Potassium 3.9 mmol/L (3.5-5.1); Sodium Level 137 mmol/L (136-145); Thyroid Stim Hormone (TSH) 4.02 uIU/mL (0.358-3.74)
[2019-08-12 09:47] LABS: Mucous, Urine 0 SEEN /hpf (<or=2+); Red Blood Cells-Urine 0 SEEN /hpf (0-5); White Blood Cells 0 SEEN /hpf (0-5)
[2019-08-12] MEDS: 0.9% Normal Saline 1,000 ML 150 ML IV (09:53)
[2019-08-12 10:03] LABS: Color, Urine Yellow (Yellow); Glucose, Dipstick Normal (Normal); Ketone-Dipstick 15 mg/dl (Negative); Leukocyte Esterase-Dipstick Negative /ul (Negative); Nitrite-Dipstick Negative (Negative); Occult Blood-Urine Negative /ul (Negative); Protein-Dipstick Negative (Negative); Urine Bilirubin Dipstick Negative (Negative); Urine Clarity Sl. Cloudy (Clear); Urine Urobilinogen Normal (Normal)
[2019-08-12 10:11] LABS: Bacteria 1+ /hpf (None Seen); Squamous Epithelial Cells - UA 0-5 SEEN /hpf (5-10)
[2019-08-12 10:53] VITALS: BP 136/71
[2019-08-12 11:03] VITALS: BP 137/84; PULSE 72; RESP 15; O2SAT 98
== END 2019-08-12 11:04 | disposition home or self-care (01) ==
PROVIDERS: Emergency Provider Emergency Medicine; Family Provider Family Medicine; PCP Family Medicine
DX: R53.1 Weakness (principal); R68.89 Other general symptoms and signs; R30.0 Dysuria; I49.3 Ventricular premature depolarization; I45.10 Unspecified right bundle-branch block; M06.9 Rheumatoid arthritis, unspecified; Z79.899 Other long term (current) drug therapy; Z87.891 Personal history of nicotine dependence
CPT/HCPCS: 71045; 80048; 81001; 84443; 84484; 85025; 87086; 93005; 96360; 99285; J7030; A4216

== ENCOUNTER → 2019-09-20 13:08 | Outpatient (CLI) | payer MEDICARE, OTHER, SELFPAY ==
[2019-09-20 13:57] LABS: Absolute Neutrophil Count 6.1 X10^3/uL (2.0-7.7); Basophil# 0.09 X10^3/uL; Basophil% 1.1 % (0-1); Eosinophil# 0.14 X10^3/uL; Eosinophils% 1.6 % (0-5); Hematocrit 42.6 % (37-47); Hemoglobin 13.1 g/dL (12.0-15.0); Lymphocyte % 17.6 % (19-41); Mean Corp Hgb Conc 30.8 g/dL (32-36); Mean Corpuscular Hgb 27.2 pg (27.0-32.0); Mean Corpuscular Volume 88.6 fL (81-99); Mean Platelet Vol. 9.3 fl (6.2-12.0); Monocyte% 8.2 % (0-10); NRBC Flagged by Analyzer 0 % (0-5); Neutrophil # 6.06 X10^3/uL (2.7-7.7); Neutrophil % 71.3 % (47-70); Platelet Count 370 K/mm3 (150-450); RBC Distribution Width CV 16.7 % (11.6-14.6); RBC Distribution Width SD 52.8 fl (35.1-43.9); Red Blood Count 4.81 M/mm3 (4.2-5.4); White Blood Count 8.5 K/mm3 (4.4-11.0)
[2019-09-20 14:31] LABS: ALB/GLOB Ratio 0.7 RATIO (0.9-2.4); AST(SGOT) 17 U/L (15-37); Alanine Aminotransfer ALT/SGPT 13 U/L (13-56); Albumin, Serum 3.1 g/dL (3.2-5.0); Alkaline Phosphatase 91 U/L (45-117); Anion Gap 5 (5-15); BUN 16 mg/dL (7-18); BUN/Creat Ratio 16.6 RATIO (10-20); Calcium,Total 8.9 mg/dL (8.5-10.1); Chloride 101 mmol/L (98-107); Creatinine, Serum 0.96 mg/dL (0.55-1.02); EST Glomerular Filtration Rate 59 mL/min (>60); Est Glom Filt Rate - Afr Amer 71 mL/min (>60); Globulin 4.7 g/dL (2.2-4.2); Glucose 125 mg/dL (74-106); Potassium 4.2 mmol/L (3.5-5.1); Protein, Total 7.8 g/dL (6.4-8.2); Sodium Level 137 mmol/L (136-145)
== END ==
PROVIDERS: Family Provider Family Medicine; PCP Family Medicine; Referring Provider Internal Medicine Rheumatology; Visit Provider Internal Medicine Rheumatology
DX: M06.00 Rheumatoid arthritis without rheumatoid factor, unspecified site (principal); Z79.899 Other long term (current) drug therapy; Z79.52 Long term (current) use of systemic steroids; M15.9 Polyosteoarthritis, unspecified; H35.30 Unspecified macular degeneration; H40.9 Unspecified glaucoma; I10 Essential (primary) hypertension; J30.9 Allergic rhinitis, unspecified; M81.0 Age-related osteoporosis without current pathological fracture; E78.5 Hyperlipidemia, unspecified
CPT/HCPCS: 36415; 80053; 85025

== ENCOUNTER → 2019-12-21 13:33 | Outpatient (CLI) | payer MEDICARE, OTHER, SELFPAY ==
[2019-12-21 15:30] LABS: Absolute Lymphocyte Count 1.58 X10^3/uL (0.83-4.51); Absolute Neutrophil Count 7.3 X10^3/uL (2.0-7.7); Eosinophil# 0.14 X10^3/uL; Eosinophils% 1.4 % (0-5); Hematocrit 41.1 % (37-47); Hemoglobin 12.8 g/dL (12.0-15.0); Lymphocyte # 1.58 X10^3/ul (4.0); Mean Corp Hgb Conc 31.1 g/dL (32-36); Mean Corpuscular Hgb 27.6 pg (27.0-32.0); Mean Corpuscular Volume 88.8 fL (81-99); Mean Platelet Vol. 10.4 fl (6.2-12.0); Monocyte# 0.74 X10^3/uL; Monocyte% 7.5 % (0-10); NRBC Flagged by Analyzer 0 % (0-5); Neutrophil # 7.29 X10^3/uL (2.7-7.7); Neutrophil % 73.8 % (47-70); Platelet Count 325 K/mm3 (150-450); RBC Distribution Width CV 18.7 % (11.6-14.6); RBC Distribution Width SD 58.4 fl (35.1-43.9); Red Blood Count 4.63 M/mm3 (4.2-5.4); White Blood Count 9.9 K/mm3 (4.4-11.0)
[2019-12-21 15:46] LABS: ALB/GLOB Ratio 0.7 RATIO (0.9-2.4); AST(SGOT) 19 U/L (15-37); Alanine Aminotransfer ALT/SGPT 15 U/L (13-56); Albumin, Serum 3.2 g/dL (3.2-5.0); Alkaline Phosphatase 87 U/L (45-117); Anion Gap 5 (5-15); BUN 19 mg/dL (7-18); BUN/Creat Ratio 21.8 RATIO (10-20); Calcium,Total 8.8 mg/dL (8.5-10.1); Chloride 101 mmol/L (98-107); Creatinine, Serum 0.87 mg/dL (0.55-1.02); EST Glomerular Filtration Rate 66 mL/min (>60); Est Glom Filt Rate - Afr Amer 80 mL/min (>60); Globulin 4.7 g/dL (2.2-4.2); Glucose 84 mg/dL (74-106); Potassium 4.1 mmol/L (3.5-5.1); Protein, Total 7.9 g/dL (6.4-8.2); Sodium Level 136 mmol/L (136-145)
== END ==
PROVIDERS: PCP Family Medicine; Referring Provider Internal Medicine Rheumatology; Visit Provider Internal Medicine Rheumatology
DX: M06.00 Rheumatoid arthritis without rheumatoid factor, unspecified site (principal); Z79.899 Other long term (current) drug therapy; Z79.52 Long term (current) use of systemic steroids; M15.9 Polyosteoarthritis, unspecified; H35.30 Unspecified macular degeneration; H40.9 Unspecified glaucoma; I10 Essential (primary) hypertension; J30.9 Allergic rhinitis, unspecified; M81.0 Age-related osteoporosis without current pathological fracture; E78.5 Hyperlipidemia, unspecified
CPT/HCPCS: 36415; 80053; 85025

== ENCOUNTER → 2020-03-19 | Outpatient (CLI) | payer MEDICARE, OTHER, SELFPAY ==
[2020-03-19 17:46] LABS: Absolute Lymphocyte Count 1.66 X10^3/uL (0.83-4.51); Absolute Neutrophil Count 7.8 X10^3/uL (2.0-7.7); Basophil# 0.08 X10^3/uL; Basophil% 0.8 % (0-1); Hematocrit 41.1 % (37-47); Hemoglobin 12.3 g/dL (12.0-15.0); Lymphocyte # 1.66 X10^3/ul (4.0); Lymphocyte % 16.1 % (19-41); Mean Corp Hgb Conc 29.9 g/dL (32-36); Mean Corpuscular Volume 90.1 fL (81-99); Mean Platelet Vol. 9.6 fl (6.2-12.0); Monocyte# 0.66 X10^3/uL; Monocyte% 6.4 % (0-10); NRBC Flagged by Analyzer 0 % (0-5); Neutrophil # 7.75 X10^3/uL (2.7-7.7); Neutrophil % 75.3 % (47-70); Platelet Count 412 K/mm3 (150-450); RBC Distribution Width CV 15.5 % (11.6-14.6); RBC Distribution Width SD 50.7 fl (35.1-43.9); Red Blood Count 4.56 M/mm3 (4.2-5.4); White Blood Count 10.3 K/mm3 (4.4-11.0)
[2020-03-19 18:01] LABS: ALB/GLOB Ratio 0.6 RATIO (0.9-2.4); AST(SGOT) 18 U/L (15-37); Alanine Aminotransfer ALT/SGPT 13 U/L (13-56); Albumin, Serum 2.9 g/dL (3.2-5.0); Alkaline Phosphatase 87 U/L (45-117); Anion Gap 7 (5-15); BUN 27 mg/dL (7-18); BUN/Creat Ratio 28.5 RATIO (10-20); Calcium,Total 8.8 mg/dL (8.5-10.1); Chloride 101 mmol/L (98-107); Creatinine, Serum 0.95 mg/dL (0.55-1.02); EST Glomerular Filtration Rate 60 mL/min (>60); Est Glom Filt Rate - Afr Amer 72 mL/min (>60); Glucose 124 mg/dL (74-106); Potassium 3.7 mmol/L (3.5-5.1); Protein, Total 7.9 g/dL (6.4-8.2); Sodium Level 139 mmol/L (136-145)
== END | disposition home or self-care (01) ==
LOC: MTLAB 15:39
PROVIDERS: PCP Family Medicine; Referring Provider Internal Medicine Rheumatology; Visit Provider Internal Medicine Rheumatology
DX: M06.00 Rheumatoid arthritis without rheumatoid factor, unspecified site (principal); M15.9 Polyosteoarthritis, unspecified; H35.30 Unspecified macular degeneration; H40.9 Unspecified glaucoma; I10 Essential (primary) hypertension; J30.9 Allergic rhinitis, unspecified; M81.0 Age-related osteoporosis without current pathological fracture; E78.5 Hyperlipidemia, unspecified; Z79.52 Long term (current) use of systemic steroids; Z79.899 Other long term (current) drug therapy
CPT/HCPCS: 36415; 80053; 85025

== ENCOUNTER → 2020-06-15 11:07 | Outpatient (CLI) | payer MEDICARE, OTHER, SELFPAY ==
[2020-06-15 12:23] LABS: Absolute Neutrophil Count 5.6 X10^3/uL (2.0-7.7); Basophil# 0.07 X10^3/uL; Basophil% 0.9 % (0-1); Eosinophil# 0.17 X10^3/uL; Eosinophils% 2.1 % (0-5); Hematocrit 41.9 % (37-47); Hemoglobin 12.9 g/dL (12.0-15.0); Lymphocyte % 18.4 % (19-41); Mean Corp Hgb Conc 30.8 g/dL (32-36); Mean Corpuscular Hgb 27.3 pg (27.0-32.0); Mean Corpuscular Volume 88.8 fL (81-99); Mean Platelet Vol. 10.1 fl (6.2-12.0); Monocyte# 0.82 X10^3/uL; NRBC Flagged by Analyzer 0 % (0-5); Neutrophil # 5.57 X10^3/uL (2.7-7.7); Neutrophil % 68.1 % (47-70); Platelet Count 373 K/mm3 (150-450); RBC Distribution Width CV 17.1 % (11.6-14.6); RBC Distribution Width SD 54.1 fl (35.1-43.9); Red Blood Count 4.72 M/mm3 (4.2-5.4); White Blood Count 8.2 K/mm3 (4.4-11.0)
[2020-06-15 13:07] LABS: ALB/GLOB Ratio 0.7 RATIO (0.9-2.4); AST(SGOT) 24 U/L (15-37); Alanine Aminotransfer ALT/SGPT 16 U/L (13-56); Alkaline Phosphatase 82 U/L (45-117); Anion Gap 4 (5-15); BUN 20 mg/dL (7-18); BUN/Creat Ratio 24.2 RATIO (10-20); Calcium,Total 8.3 mg/dL (8.5-10.1); Chloride 101 mmol/L (98-107); Creatinine, Serum 0.83 mg/dL (0.55-1.02); EST Glomerular Filtration Rate 70 mL/min (>60); Est Glom Filt Rate - Afr Amer 84 mL/min (>60); Globulin 4.5 g/dL (2.2-4.2); Glucose 63 mg/dL (74-106); Potassium 3.7 mmol/L (3.5-5.1); Protein, Total 7.5 g/dL (6.4-8.2); Sodium Level 137 mmol/L (136-145)
== END ==
PROVIDERS: PCP Family Medicine; Referring Provider Internal Medicine Rheumatology; Visit Provider Internal Medicine Rheumatology
DX: M06.00 Rheumatoid arthritis without rheumatoid factor, unspecified site (principal); Z79.899 Other long term (current) drug therapy; Z79.52 Long term (current) use of systemic steroids; M15.9 Polyosteoarthritis, unspecified; H35.30 Unspecified macular degeneration; H40.9 Unspecified glaucoma; I10 Essential (primary) hypertension; J30.9 Allergic rhinitis, unspecified; M81.0 Age-related osteoporosis without current pathological fracture; E78.5 Hyperlipidemia, unspecified
CPT/HCPCS: 36415; 80053; 85025

== ENCOUNTER → 2020-06-30 08:52 | Outpatient (CLI) | payer MEDICARE, OTHER, SELFPAY ==
--- NOTE | 2020-06-30 08:55 | CT_ITS ---
STUDY: CT ABDOMEN AND PELVIS WITHOUT CONTRAST REASON FOR EXAM: Female, 84 years old. LLQ PAIN RADIATION DOSAGE (If Supplied By Facility): CTDIvol = ( 5.65 ) mGy, DLP = ( 236.23 ) mGycm TECHNIQUE: Transaxial images were obtained from the dome of the diaphragm to the symphysis pubis without oral contrast, and without intravenous contrast. Sagittal and coronal images were reconstructed. Individualized dose optimization techniques were used for this CT. COMPARISON: 01/23/2019 FINDINGS: The visualized lung bases are unremarkable. The visualized portions of the heart are within normal limits. Normal liver. Normal gallbladder and extrahepatic biliary system. Normal spleen. Normal pancreas. Normal bilateral adrenal glands. Normal right kidney. Normal left kidney. Normal visualized stomach. Normal small intestine. There are multiple colonic diverticula consistent with diverticulosis. There is non-visualization of the appendix. 3.2 cm abdominal aortic aneurysm treated with aortic stent graft. Normal inferior vena cava. Normal retroperitoneum. Normal urinary bladder. Normal abdominal wall. Left femoral neck compression screw. Chronic moderate compression fracture of T12 with 5 mm retropulsion into the spinal canal producing moderate spinal stenosis which is unchanged. 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 CT/Abdomen/Pelvis without Cont IMPRESSION: Sigmoid diverticulosis without diverticulitis. Electronically Signed: Rony Burch MD at 9:42 EDT Tel , Service support ,
== END ==
PROVIDERS: PCP Family Medicine; Referring Provider Family Medicine; Visit Provider Family Medicine
DX: K57.92 Diverticulitis of intestine, part unspecified, without perforation or abscess without bleeding (principal)
CPT/HCPCS: 74176

== ENCOUNTER → 2020-09-05 13:50 | Outpatient (CLI) | payer MEDICARE, OTHER, SELFPAY ==
[2020-09-05 15:17] LABS: Absolute Lymphocyte Count 1.48 X10^3/uL (0.83-4.51); Absolute Neutrophil Count 6.2 X10^3/uL (2.0-7.7); Basophil# 0.09 X10^3/uL; Basophil% 1.1 % (0-1); Eosinophil# 0.12 X10^3/uL; Eosinophils% 1.4 % (0-5); Hematocrit 40.9 % (37-47); Hemoglobin 12.5 g/dL (12.0-15.0); Lymphocyte # 1.48 X10^3/ul (4.0); Lymphocyte % 17.3 % (19-41); Mean Corp Hgb Conc 30.6 g/dL (32-36); Mean Corpuscular Hgb 26.7 pg (27.0-32.0); Mean Corpuscular Volume 87.4 fL (81-99); Monocyte# 0.63 X10^3/uL; Monocyte% 7.4 % (0-10); NRBC Flagged by Analyzer 0 % (0-5); Neutrophil # 6.19 X10^3/uL (2.7-7.7); Neutrophil % 72.4 % (47-70); Platelet Count 421 K/mm3 (150-450); RBC Distribution Width CV 18.1 % (11.6-14.6); RBC Distribution Width SD 56.4 fl (35.1-43.9); Red Blood Count 4.68 M/mm3 (4.2-5.4); White Blood Count 8.5 K/mm3 (4.4-11.0)
[2020-09-05 15:42] LABS: ALB/GLOB Ratio 0.8 RATIO (0.9-2.4); AST(SGOT) 17 U/L (15-37); Alanine Aminotransfer ALT/SGPT 12 U/L (13-56); Albumin, Serum 3.4 g/dL (3.2-5.0); Alkaline Phosphatase 96 U/L (45-117); Anion Gap 4 (5-15); BUN 19 mg/dL (7-18); BUN/Creat Ratio 22.3 RATIO (10-20); Calcium,Total 9.2 mg/dL (8.5-10.1); Chloride 103 mmol/L (98-107); Creatinine, Serum 0.85 mg/dL (0.55-1.02); EST Glomerular Filtration Rate 67 mL/min (>60); Est Glom Filt Rate - Afr Amer 81 mL/min (>60); Globulin 4.5 g/dL (2.2-4.2); Glucose 81 mg/dL (74-106); Potassium 4.1 mmol/L (3.5-5.1); Protein, Total 7.9 g/dL (6.4-8.2); Sodium Level 138 mmol/L (136-145)
== END ==
PROVIDERS: PCP Family Medicine; Referring Provider Internal Medicine Rheumatology; Visit Provider Internal Medicine Rheumatology
DX: M06.00 Rheumatoid arthritis without rheumatoid factor, unspecified site (principal); Z79.899 Other long term (current) drug therapy; Z79.52 Long term (current) use of systemic steroids; M15.9 Polyosteoarthritis, unspecified; H35.30 Unspecified macular degeneration; H40.9 Unspecified glaucoma; I10 Essential (primary) hypertension; J30.9 Allergic rhinitis, unspecified; M81.0 Age-related osteoporosis without current pathological fracture; E78.5 Hyperlipidemia, unspecified
CPT/HCPCS: 36415; 80053; 85025

== ENCOUNTER 2020-11-02 08:55 | Outpatient (RCR) | payer MEDICARE, OTHER, SELFPAY | END 2020-11-02 23:59 | LOC: IMMUN 08:55 | PROVIDERS: PCP Family Medicine; Visit Provider Family Medicine | DX: Z23 Encounter for immunization (principal) | CPT/HCPCS: 0011A; 0012A; 91301 ==

== ENCOUNTER → 2020-11-30 13:23 | Outpatient (CLI) | payer MEDICARE, OTHER, SELFPAY ==
[2020-11-30 15:15] LABS: Absolute Lymphocyte Count 1.86 X10^3/uL (0.83-4.51); Absolute Neutrophil Count 9.2 X10^3/uL (2.0-7.7); Basophil# 0.08 X10^3/uL; Basophil% 0.7 % (0-1); Eosinophil# 0.12 X10^3/uL; Hematocrit 38.9 % (37-47); Hemoglobin 11.5 g/dL (12.0-15.0); Lymphocyte # 1.86 X10^3/ul (4.0); Lymphocyte % 15.4 % (19-41); Mean Corp Hgb Conc 29.6 g/dL (32-36); Mean Corpuscular Hgb 25.7 pg (27.0-32.0); Mean Corpuscular Volume 86.8 fL (81-99); Monocyte# 0.78 X10^3/uL; Monocyte% 6.4 % (0-10); NRBC Flagged by Analyzer 0 % (0-5); Neutrophil # 9.17 X10^3/uL (2.7-7.7); Neutrophil % 75.7 % (47-70); Platelet Count 469 K/mm3 (150-450); RBC Distribution Width CV 18.6 % (11.6-14.6); RBC Distribution Width SD 58.3 fl (35.1-43.9); Red Blood Count 4.48 M/mm3 (4.2-5.4); White Blood Count 12.1 K/mm3 (4.4-11.0)
[2020-11-30 15:30] LABS: ALB/GLOB Ratio 0.5 RATIO (0.9-2.4); AST(SGOT) 13 U/L (15-37); Alanine Aminotransfer ALT/SGPT 14 U/L (13-56); Alkaline Phosphatase 89 U/L (45-117); Anion Gap 4 (5-15); BUN 18 mg/dL (7-18); BUN/Creat Ratio 23.6 RATIO (10-20); Calcium,Total 7.7 mg/dL (8.5-10.1); Chloride 105 mmol/L (98-107); Creatinine, Serum 0.76 mg/dL (0.55-1.02); EST Glomerular Filtration Rate 76 mL/min (>60); Est Glom Filt Rate - Afr Amer 92 mL/min (>60); Globulin 4.3 g/dL (2.2-4.2); Glucose 123 mg/dL (74-106); Potassium 3.6 mmol/L (3.5-5.1); Protein, Total 6.3 g/dL (6.4-8.2); Sodium Level 139 mmol/L (136-145)
== END ==
PROVIDERS: PCP Family Medicine; Referring Provider Internal Medicine Rheumatology; Visit Provider Internal Medicine Rheumatology
DX: M06.00 Rheumatoid arthritis without rheumatoid factor, unspecified site (principal); Z79.899 Other long term (current) drug therapy; Z79.52 Long term (current) use of systemic steroids; M47.897 Other spondylosis, lumbosacral region; H40.9 Unspecified glaucoma; M15.9 Polyosteoarthritis, unspecified; H35.30 Unspecified macular degeneration; I10 Essential (primary) hypertension; J30.9 Allergic rhinitis, unspecified; M81.0 Age-related osteoporosis without current pathological fracture; E78.5 Hyperlipidemia, unspecified
CPT/HCPCS: 36415; 80053; 85025

== ENCOUNTER 2021-02-11 15:32 | Emergency (ER) | payer MEDICARE, OTHER, SELFPAY ==
[2021-02-11 15:33] VITALS: BP 141/81; PULSE 80; RESP 17; TEMP 36.3; O2SAT 94; BMI 18.1
--- NOTE | 2021-02-11 16:32 | EX.ED.DYSGE1 ---
HPI History of Present Illness Chief Complaint: Nausea/Vomiting Narrative Narrative: 85-year-old female presents with nausea, vomiting. She states she is unable to keep anything down for the past 2 days. She denies abdominal pain. Denies chest pain. Family states that she has been fatigued and short of breath with this. She denies fever. Denies headache. She complains of decreased appetite. Prior similar symptoms: Yes Recent Illness/Hospitalization: No PFSH PFS Medical History (Updated 02/11/21 @ 19:[address] Laura Mccoy MD) Former smoker GERD (gastroesophageal reflux disease) Rheumatoid arthritis Home Medications Cranberry Plus Vitamin C 1 ea PO DAILY 10/08/17 [History Last Taken Unknown] esomeprazole magnesium [Nexium] 20 mg PO DAILY 10/08/17 [History Last Taken 10/11/17] ipratropium bromide 2 sprays NARES DAILY 10/08/17 [History Last Taken 10/11/17] latanoprost 1 drp EACH EYE QHS 10/08/17 [History Last Taken 10/11/17] Premarin 1 applic PO QWEEK 01/23/19 [History Last Taken Unknown] adalimumab [Humira] 40 mg SQ Q28D 01/23/19 [History Last Taken Unknown] calcium carbonate 500 mg PO DAILY 01/23/19 [History Last Taken Unknown] folic acid 2 tab PO DAILY 01/23/19 [History Last Taken Unknown] methotrexate sodium 6 tab PO QWEEK 01/23/19 [History Last Taken Unknown] cholecalciferol (vitamin D3) 1,000 unit PO DAILY 08/12/19 [History Last Taken Unknown] ondansetron 4 mg PO Q8H PRN PRN #10 tab 02/11/21 [Rx Last Taken Unknown] Allergy/AdvReac Type Severity Reaction Status Date / Time metronidazole [From Flagyl] Allergy Hives Verified 02/11/21 15:35 acetaminophen AdvReac Nausea/Vom/ Verified 02/11/21 15:35 [From Darvocet-N] Diarrhea codeine AdvReac Vomiting Verified 02/11/21 15:35 hydrocodone [From Vicodin] AdvReac Vomiting Verified 02/11/21 15:35 naproxen [From Aleve] AdvReac Nausea/Vom/ Verified 02/11/21 15:35 Diarrhea oxycodone [From Percocet] AdvReac Nausea/Vom/ Verified 02/11/21 15:35 Diarrhea propoxyphene AdvReac Nausea/Vom/ Verified 02/11/21 15:35 [From Darvocet-N] Diarrhea Surgical History (Updated 02/11/21 @ 17:43 by Lori House RN) History of appendectomy Social History Smoking Status: Former smoker ROS ROS ED Constitutional Constitutional ED: Denies fever(s) Eyes Eyes: Denies change in vision ENT ENT ED: Denies rhinorrhea or sore throat Cardiovascular Cardiovascular: Denies chest pain or palpitations Respiratory/Chest Respiratory/Chest: Reports dyspnea; Denies cough Gastrointestinal Gastrointestinal: Reports nausea and vomiting; Denies abdominal pain, constipation or diarrhea Genitourinary Genitourinary ED: Denies dysuria Musculoskeletal Musculoskeletal: Denies myalgias Integumentary Denies rash Neurologic Neurologic: Denies headache(s) Psychiatric Psychiatric: Denies suicidal thoughts EXAM Physical Exam Const Vital Signs: 02/11/21 15:33 02/11/21 17:39 02/11/21 19:13 Temperature 97.4 F L Temperature Source Temporal Pulse Rate 80 97 108 H Respiratory Rate 17 16 18 Blood Pressure 141/81 H 134/90 H 112/82 H Blood Pressure Mean 101 104 92 Pulse Ox 94 96 92 Oxygen Delivery Method Room Air Room Air Room Air Positive well nourished and well developed General Appearance ED: well developed HEENT Reports normocephalic, head/scalp atraumatic and dry mucous membranes Mouth ED: Yes dry mucous membranes Mouth: dry mucous membranes Eyes PERRL and EOMs intact bilaterally Neck supple General: Negative for tenderness Chest Wall inspection of chest normal Resp normal respiratory effort and clear to auscultation bilaterally Cardio regular rate and regular rhythm GI non-tender and non-distended Palpation: soft; Negative for guarding or rebound tenderness present no CVA tenderness Extremity normal to inspection Neuro oriented x3 Sensorium / Orientation: alert Psych mental status grossly normal MDM MDM MDM Narrative Medical decision making narrative: Patient was given IV fluids, Zofran. Lab Data Attestation: I reviewed the patient's lab results. Labs: Laboratory Results - last 24 hr 02/11/21 02/11/21 02/11/21 17:00 17:00 17:55 WBC 11.2 H RBC 4.52 Hgb 12.0 Hct 39.8 MCV 88.1 MCH 26.5 L MCHC 30.2 L RDW Std Deviation 57.8 H RDW Coeff of Niranjan 18.4 H Plt Count 385 MPV 9.2 Immature Gran % (Auto) 0.400 Neut % (Auto) 82.2 H Lymph % (Auto) 11.9 L Hinds % (Auto) 4.7 Eos % (Auto) 0.3 Baso % (Auto) 0.5 Absolute Neuts (auto) 9.2 H Absolute Lymphs (auto) 1.33 Nucleated RBC % 0 Sodium 134 L Potassium 4.6 Chloride 97 L Carbon Dioxide 30.0 Anion Gap 7 BUN 23 H Creatinine 0.93 Estim Creat Clear Calc 29.85 Est GFR (MDRD) Af Amer 74 Est GFR (MDRD) Non-Af 61 BUN/Creatinine Ratio 24.8 H Glucose 92 Calcium 8.8 Total Bilirubin 0.60 AST 16 ALT 11 L Alkaline Phosphatase 96 Troponin I < 0.015 Total Protein 6.9 Albumin 2.6 L Globulin 4.3 H Albumin/Globulin Ratio 0.6 L Lipase 103 Urine Color Yellow Urine Clarity Clear Urine pH 7.0 Ur Specific [place] 1.010 Urine Protein Negative Urine Glucose (UA) Normal Urine Ketones Negative Urine Occult Blood 10 H Urine Nitrite Negative Urine Bilirubin Negative Urine Urobilinogen Normal Ur Leukocyte Esterase 25 H Urine RBC 0 SEEN Urine WBC 0-5 SEEN Ur Squamous Epith Cells 0-5 SEEN Urine Bacteria 0 SEEN Urine Mucus 0 SEEN Microbiology Past 72 Hours 02/11/21 16:55 Nasal Secretion SARS-CoV-2 Antigen (Rapid) - Final Laboratory Results 02/11/21 17:00: WBC 11.2 H, RBC 4.52, Hgb 12.0, Hct 39.8, MCV 88.1, MCH 26.5 L, MCHC 30.2 L, RDW Std Deviation 57.8 H, RDW Coeff of Niranjan 18.4 H, Plt Count 385, MPV 9.2, Immature Gran % (Auto) 0.400, Neut % (Auto) 82.2 H, Lymph % (Auto) 11.9 L, Hinds % (Auto) 4.7, Eos % (Auto) 0.3, Baso % (Auto) 0.5, Absolute Neuts (auto) 9.2 H, Absolute Lymphs (auto) 1.33, Nucleated RBC % 0 02/11/21 17:00: Sodium 134 L, Potassium 4.6, Chloride 97 L, Carbon Dioxide 30.0, Anion Gap 7, BUN 23 H, Creatinine 0.93, Estim Creat Clear Calc 29.85, Est GFR (MDRD) Af Amer 74, Est GFR (MDRD) Non-Af 61, BUN/Creatinine Ratio 24.8 H, Glucose 92, Calcium 8.8, Total Bilirubin 0.60, AST 16, ALT 11 L, Alkaline Phosphatase 96, Troponin I < 0.015, Total Protein 6.9, Albumin 2.6 L, Globulin 4.3 H, Albumin/Globulin Ratio 0.6 L, Lipase 103 02/11/21 17:55: Urine Color Yellow, Urine Clarity Clear, Urine pH 7.0, Ur Specific [place] 1.010, Urine Protein Negative, Urine Glucose (UA) Normal, Urine Ketones Negative, Urine Occult Blood 10 H, Urine Nitrite Negative, Urine Bilirubin Negative, Urine Urobilinogen Normal, Ur Leukocyte Esterase 25 H, Urine RBC 0 SEEN, Urine WBC 0-5 SEEN, Ur Squamous Epith Cells 0-5 SEEN, Urine Bacteria 0 SEEN, Urine Mucus 0 SEEN Radiography Diagnostic Testing: Radiology Impression Chest X-Ray 02/11/21 17:05 IMPRESSION: No acute radiographic abnormalities. COPD. Electronically Signed: Bro Son MD at 17:43 EDT Tel , Service support , EKG Initial EKG: Attestation: I personally reviewed and interpreted this EKG as follows: Interpretation: Sinus Rhythm and RBBB Prior EKG tracings: available for review Treatment and Re-Evaluation Comments:: Patient is feeling much improved on reevaluation. With ambulation her pulse ox remains 93% on room air. Her Covid test is negative. She is able to tolerate p.o. in the emergency department. She and family are comfortable with discharge home. She is given a prescription for Zofran. Advised to follow-up with her primary care physician. Advised return to the ED for worsening complaints. Discharge Plan Triage Chief Complaint: Nausea/Vomiting ED Provider: Laura Mccoy Dx/Rx/DC Orders Clinical Impression: Dehydration Instructions: ED Vomiting (Adult) Prescriptions: New ondansetron [ondansetron] 4 MG tablet 4 mg PO Q8H PRN PRN (Reason: Nausea) Qty: 10 RF: 0 No Action latanoprost 0.005 drops 1 drp Each Eye QHS RF: 0 ipratropium bromide 0.06 spray,non-aerosol 2 sprays NARES DAILY RF: 0 esomeprazole magnesium [Nexium] 20 MG capsule 20 mg PO DAILY RF: 0 Cranberry Plus Vitamin C 1 EACH capsule 1 ea PO DAILY RF: 0 methotrexate sodium 2.5 MG tablet 6 tab PO QWEEK RF: 0 folic acid 1 MG tablet 2 tab PO DAILY RF: 0 calcium carbonate 500 MG tablet,chewable 500 mg PO DAILY RF: 0 Humira 40 MG/0.8 ML syringe kit 40 mg SQ Q28D RF: 0 Premarin 1 applic PO QWEEK RF: 0 cholecalciferol (vitamin D3) 1,000 UNIT tablet 1,000 unit PO DAILY RF: 0 Primary Care Provider: Renetta Carson Referrals: Renetta Carson MD [Primary Care Provider] - Disposition Disposition: Home, self care
--- NOTE | 2021-02-11 16:43 | EKG12_ITS ---
Test Reason : Blood Pressure : / mmHG Vent. Rate : 096 BPM Atrial Rate : 096 BPM P-R Int : 320 ms QRS Dur : 128 ms QT Int : 392 ms P-R-T Axes : 085 -74 095 degrees QTc Int : 495 ms Sinus rhythm with marked sinus arrhythmia with 1st degree A-V block Right bundle branch block Left anterior fascicular block Bifascicular block Abnormal ECG Confirmed by ALBERTO HOFF, ERIC ([id number]), writer editor ADRIENNE KAMARA ([id number]) on 02/13/2021 9:04:00 AM Referred By: SANDRA Confirmed By:ERIC DOMINGUEZ MD
[2021-02-11] MEDS: Ondansetron 4 MG/2 ML Vial IV (17:04)
--- NOTE | 2021-02-11 17:05 | RAD_ITS ---
INDICATION: sob EXAMINATION/TECHNIQUE: X-RAY - XR Chest 1 View COMPARISON: 08/12/2019. FINDINGS: Hyperinflated lungs. Left basilar scarring/atelectasis. Tortuous and calcified thoracic aorta. The heart is not enlarged. No pleural effusion or pneumothorax. No acute osseous abnormalities. RAD/Chest 1 View (Portable) IMPRESSION: No acute radiographic abnormalities. COPD. Electronically Signed: Bro Son MD at 17:43 EDT Tel , Service support ,
--- NOTE | 2021-02-11 17:05 | NURSING ---
[facility], TALKED TO JASPER. SOMEONE WILL BE IN TO SEE PATIENT
[2021-02-11 17:15] LABS: Absolute Lymphocyte Count 1.33 X10^3/uL (0.83-4.51); Absolute Neutrophil Count 9.2 X10^3/uL (2.0-7.7); Basophil# 0.06 X10^3/uL; Basophil% 0.5 % (0-1); Eosinophil# 0.03 X10^3/uL; Eosinophils% 0.3 % (0-5); Hematocrit 39.8 % (37-47); Lymphocyte # 1.33 X10^3/ul (0.83-4.51); Lymphocyte % 11.9 % (19-41); Mean Corp Hgb Conc 30.2 g/dL (32-36); Mean Corpuscular Hgb 26.5 pg (27.0-32.0); Mean Corpuscular Volume 88.1 fL (81-99); Mean Platelet Vol. 9.2 fl (6.2-12.0); Monocyte# 0.52 X10^3/uL; Monocyte% 4.7 % (0-10); NRBC Flagged by Analyzer 0 % (0-5); Neutrophil # 9.18 X10^3/uL (2.7-7.7); Neutrophil % 82.2 % (47-70); Platelet Count 385 K/mm3 (150-450); RBC Distribution Width CV 18.4 % (11.6-14.6); RBC Distribution Width SD 57.8 fl (35.1-43.9); Red Blood Count 4.52 M/mm3 (4.2-5.4); White Blood Count 11.2 K/mm3 (4.4-11.0)
[2021-02-11 17:39] VITALS: BP 134/90; PULSE 97; RESP 16; O2SAT 96
[2021-02-11 18:10] LABS: Bacteria 0 SEEN /hpf (None Seen); Mucous, Urine 0 SEEN /hpf (<or=2+); Red Blood Cells-Urine 0 SEEN /hpf (0-5)
[2021-02-11 18:22] LABS: Color, Urine Yellow (Yellow); Glucose, Dipstick Normal (Normal); Ketone-Dipstick Negative (Negative); Leukocyte Esterase-Dipstick 25 /ul (Negative); Nitrite-Dipstick Negative (Negative); Occult Blood-Urine 10 /ul (Negative); Protein-Dipstick Negative (Negative); Urine Bilirubin Dipstick Negative (Negative); Urine Clarity Clear (Clear); Urine Urobilinogen Normal (Normal)
[2021-02-11 18:25] LABS: ALB/GLOB Ratio 0.6 RATIO (0.9-2.4); AST(SGOT) 16 U/L (15-37); Alanine Aminotransfer ALT/SGPT 11 U/L (13-56); Albumin, Serum 2.6 g/dL (3.2-5.0); Alkaline Phosphatase 96 U/L (45-117); Anion Gap 7 (5-15); BUN 23 mg/dL (7-18); BUN/Creat Ratio 24.8 RATIO (10-20); Calcium,Total 8.8 mg/dL (8.5-10.1); Chloride 97 mmol/L (98-107); Creatinine, Serum 0.93 mg/dL (0.55-1.02); EST Glomerular Filtration Rate 61 mL/min (>60); Est Glom Filt Rate - Afr Amer 74 mL/min (>60); Estimated Creatinine Clearance 29.85 ml/min; Globulin 4.3 g/dL (2.2-4.2); Glucose 92 mg/dL (74-106); Lipase 103 U/L (73-393); Potassium 4.6 mmol/L (3.5-5.1); Protein, Total 6.9 g/dL (6.4-8.2); Sodium Level 134 mmol/L (136-145)
[2021-02-11 18:28] LABS: Squamous Epithelial Cells - UA 0-5 SEEN /hpf (5-10); White Blood Cells 0-5 SEEN /hpf (0-5)
[2021-02-11 19:13] VITALS: BP 112/82; PULSE 108; RESP 18; O2SAT 92
== END 2021-02-11 19:59 | disposition home or self-care (01) ==
PROVIDERS: Emergency Provider Emergency Medicine; PCP Family Medicine
DX: E86.0 Dehydration (principal); I45.10 Unspecified right bundle-branch block; M06.9 Rheumatoid arthritis, unspecified; K21.9 Gastro-esophageal reflux disease without esophagitis; Z87.891 Personal history of nicotine dependence
CPT/HCPCS: 71045; 80053; 81001; 83690; 84484; 85025; 87426; 93005; 96361; 96374; 99284; J7030; A4216; J2405

== ENCOUNTER → 2021-02-12 14:04 | Outpatient (CLI) | payer MEDICARE, OTHER, SELFPAY ==
[2021-02-11 15:33] VITALS: BMI 18.1
[2021-02-12 15:19] LABS: Absolute Lymphocyte Count 1.56 X10^3/uL (0.83-4.51); Absolute Neutrophil Count 7.5 X10^3/uL (2.0-7.7); Basophil# 0.08 X10^3/uL; Basophil% 0.8 % (0-1); Eosinophil# 0.24 X10^3/uL; Eosinophils% 2.4 % (0-5); Hematocrit 39.4 % (37-47); Hemoglobin 11.8 g/dL (12.0-15.0); Lymphocyte # 1.56 X10^3/ul (0.83-4.51); Lymphocyte % 15.8 % (19-41); Mean Corp Hgb Conc 29.9 g/dL (32-36); Mean Corpuscular Hgb 27.1 pg (27.0-32.0); Mean Corpuscular Volume 90.4 fL (81-99); Mean Platelet Vol. 9.9 fl (6.2-12.0); Monocyte# 0.48 X10^3/uL; Monocyte% 4.8 % (0-10); NRBC Flagged by Analyzer 0 % (0-5); Neutrophil # 7.51 X10^3/uL (2.7-7.7); Neutrophil % 75.9 % (47-70); Platelet Count 417 K/mm3 (150-450); RBC Distribution Width CV 18.1 % (11.6-14.6); Red Blood Count 4.36 M/mm3 (4.2-5.4); White Blood Count 9.9 K/mm3 (4.4-11.0)
[2021-02-12 16:07] LABS: ALB/GLOB Ratio 0.6 RATIO (0.9-2.4); AST(SGOT) 15 U/L (15-37); Alanine Aminotransfer ALT/SGPT 11 U/L (13-56); Albumin, Serum 2.7 g/dL (3.2-5.0); Alkaline Phosphatase 94 U/L (45-117); Anion Gap 4 (5-15); BUN 18 mg/dL (7-18); BUN/Creat Ratio 18.2 RATIO (10-20); Calcium,Total 8.9 mg/dL (8.5-10.1); Chloride 101 mmol/L (98-107); Creatinine, Serum 0.99 mg/dL (0.55-1.02); EST Glomerular Filtration Rate 57 mL/min (>60); Est Glom Filt Rate - Afr Amer 68 mL/min (>60); Globulin 4.8 g/dL (2.2-4.2); Glucose 94 mg/dL (74-106); Potassium 3.7 mmol/L (3.5-5.1); Protein, Total 7.5 g/dL (6.4-8.2); Sodium Level 137 mmol/L (136-145); Thyroid Stim Hormone (TSH) 5.95 uIU/mL (0.358-3.74)
[2021-02-12 16:11] LABS: Vitamin D,25 Hydroxy 67.1 ng/mL
== END ==
PROVIDERS: PCP Family Medicine; Referring Provider Internal Medicine Rheumatology; Visit Provider Internal Medicine Rheumatology
DX: M06.00 Rheumatoid arthritis without rheumatoid factor, unspecified site (principal); Z79.899 Other long term (current) drug therapy; Z79.52 Long term (current) use of systemic steroids; M15.9 Polyosteoarthritis, unspecified; M47.897 Other spondylosis, lumbosacral region; H35.30 Unspecified macular degeneration; H40.9 Unspecified glaucoma; I10 Essential (primary) hypertension; J30.9 Allergic rhinitis, unspecified; M81.0 Age-related osteoporosis without current pathological fracture; E78.5 Hyperlipidemia, unspecified; E03.9 Hypothyroidism, unspecified; E55.9 Vitamin D deficiency, unspecified
CPT/HCPCS: 36415; 80053; 82306; 84439; 84443; 85025

== ENCOUNTER → 2021-04-30 14:13 | Outpatient (CLI) | payer MEDICARE, OTHER, SELFPAY ==
[2021-04-30 17:40] LABS: Absolute Lymphocyte Count 1.69 X10^3/uL (0.83-4.51); Absolute Neutrophil Count 9.7 X10^3/uL (2.0-7.7); Basophil% 0.8 % (0-1); Eosinophil# 0.08 X10^3/uL; Eosinophils% 0.6 % (0-5); Hematocrit 39.8 % (37-47); Lymphocyte # 1.69 X10^3/ul (0.83-4.51); Lymphocyte % 13.7 % (19-41); Mean Corp Hgb Conc 30.2 g/dL (32-36); Mean Corpuscular Volume 89.6 fL (81-99); Mean Platelet Vol. 9.4 fl (6.2-12.0); Monocyte# 0.72 X10^3/uL; Monocyte% 5.8 % (0-10); NRBC Flagged by Analyzer 0 % (0-5); Neutrophil # 9.68 X10^3/uL (2.7-7.7); Neutrophil % 78.6 % (47-70); Platelet Count 425 K/mm3 (150-450); RBC Distribution Width CV 18.6 % (11.6-14.6); RBC Distribution Width SD 60.5 fl (35.1-43.9); Red Blood Count 4.44 M/mm3 (4.2-5.4); White Blood Count 12.3 K/mm3 (4.4-11.0)
[2021-04-30 17:55] LABS: ALB/GLOB Ratio 0.6 RATIO (0.9-2.4); AST(SGOT) 19 U/L (15-37); Alanine Aminotransfer ALT/SGPT 15 U/L (13-56); Albumin, Serum 2.7 g/dL (3.2-5.0); Alkaline Phosphatase 86 U/L (45-117); Anion Gap 6 (5-15); BUN 19 mg/dL (7-18); BUN/Creat Ratio 19.6 RATIO (10-20); Calcium,Total 8.5 mg/dL (8.5-10.1); Chloride 99 mmol/L (98-107); Creatinine, Serum 0.97 mg/dL (0.55-1.02); EST Glomerular Filtration Rate 58 mL/min (>60); Est Glom Filt Rate - Afr Amer 70 mL/min (>60); Globulin 4.2 g/dL (2.2-4.2); Glucose 151 mg/dL (74-106); Potassium 4.2 mmol/L (3.5-5.1); Protein, Total 6.9 g/dL (6.4-8.2); Sodium Level 137 mmol/L (136-145)
== END ==
PROVIDERS: PCP Family Medicine; Referring Provider Internal Medicine Rheumatology; Visit Provider Internal Medicine Rheumatology
DX: M06.00 Rheumatoid arthritis without rheumatoid factor, unspecified site (principal); Z79.899 Other long term (current) drug therapy; Z79.52 Long term (current) use of systemic steroids; M15.9 Polyosteoarthritis, unspecified; M47.897 Other spondylosis, lumbosacral region; H35.30 Unspecified macular degeneration; H40.9 Unspecified glaucoma; I10 Essential (primary) hypertension; J30.9 Allergic rhinitis, unspecified; M81.0 Age-related osteoporosis without current pathological fracture; E78.5 Hyperlipidemia, unspecified
CPT/HCPCS: 36415; 80053; 85025

== ENCOUNTER → 2021-05-10 13:09 | Outpatient (CLI) | payer MEDICARE, OTHER, SELFPAY ==
[2021-05-10 15:49] LABS: T4 Free Direct 1.14 ng/dL (0.76-1.46); Thyroid Stim Hormone (TSH) 3.39 uIU/mL (0.358-3.74)
== END ==
PROVIDERS: PCP Family Medicine; Referring Provider Family Medicine; Visit Provider Family Medicine
DX: M06.00 Rheumatoid arthritis without rheumatoid factor, unspecified site (principal); Z79.899 Other long term (current) drug therapy; Z79.52 Long term (current) use of systemic steroids; M15.9 Polyosteoarthritis, unspecified; M47.897 Other spondylosis, lumbosacral region; H35.30 Unspecified macular degeneration; H40.9 Unspecified glaucoma; I10 Essential (primary) hypertension; J30.9 Allergic rhinitis, unspecified; M81.0 Age-related osteoporosis without current pathological fracture; E78.5 Hyperlipidemia, unspecified; E03.9 Hypothyroidism, unspecified
CPT/HCPCS: 36415; 84439; 84443

== ENCOUNTER → 2021-07-23 14:24 | Outpatient (CLI) | payer MEDICARE, OTHER, SELFPAY ==
[2021-07-23 17:56] LABS: Absolute Lymphocyte Count 2.18 X10^3/uL (0.83-4.51); Absolute Neutrophil Count 8.2 X10^3/uL (2.0-7.7); Basophil% 0.9 % (0-1); Eosinophil# 0.31 X10^3/uL; Eosinophils% 2.7 % (0-5); Hemoglobin 13.7 g/dL (12.0-15.0); Lymphocyte # 2.18 X10^3/ul (0.83-4.51); Lymphocyte % 18.9 % (19-41); Mean Corp Hgb Conc 31.1 g/dL (32-36); Mean Platelet Vol. 10.2 fl (6.2-12.0); Monocyte# 0.69 X10^3/uL; NRBC Flagged by Analyzer 0 % (0-5); Neutrophil # 8.18 X10^3/uL (2.7-7.7); Platelet Count 354 K/mm3 (150-450); RBC Distribution Width CV 17.1 % (11.6-14.6); RBC Distribution Width SD 57.2 fl (35.1-43.9); Red Blood Count 4.73 M/mm3 (4.2-5.4); White Blood Count 11.5 K/mm3 (4.4-11.0)
[2021-07-23 18:11] LABS: ALB/GLOB Ratio 0.7 RATIO (0.9-2.4); AST(SGOT) 22 U/L (15-37); Alanine Aminotransfer ALT/SGPT 19 U/L (13-56); Albumin, Serum 3.2 g/dL (3.2-5.0); Alkaline Phosphatase 75 U/L (45-117); Anion Gap 7 (5-15); BUN 27 mg/dL (7-18); BUN/Creat Ratio 34.6 RATIO (10-20); Calcium,Total 9.2 mg/dL (8.5-10.1); Chloride 99 mmol/L (98-107); Creatinine, Serum 0.78 mg/dL (0.55-1.02); EST Glomerular Filtration Rate 74 mL/min (>60); Est Glom Filt Rate - Afr Amer 90 mL/min (>60); Globulin 4.3 g/dL (2.2-4.2); Glucose 118 mg/dL (74-106); Potassium 3.4 mmol/L (3.5-5.1); Protein, Total 7.5 g/dL (6.4-8.2); Sodium Level 138 mmol/L (136-145)
== END ==
PROVIDERS: PCP Family Medicine; Referring Provider Internal Medicine Rheumatology; Visit Provider Internal Medicine Rheumatology
DX: M06.00 Rheumatoid arthritis without rheumatoid factor, unspecified site (principal); Z79.899 Other long term (current) drug therapy; Z79.52 Long term (current) use of systemic steroids; M15.9 Polyosteoarthritis, unspecified; M47.897 Other spondylosis, lumbosacral region; H35.30 Unspecified macular degeneration; H40.9 Unspecified glaucoma; I10 Essential (primary) hypertension; J30.9 Allergic rhinitis, unspecified; M81.0 Age-related osteoporosis without current pathological fracture; E78.5 Hyperlipidemia, unspecified
CPT/HCPCS: 36415; 80053; 85025

== ENCOUNTER 2021-08-19 19:46 | Emergency (ER) | payer MEDICARE, OTHER, SELFPAY ==
[2021-08-19 19:50] VITALS: BP 136/66; PULSE 78; RESP 16; TEMP 36.4; O2SAT 94; BMI 17.9
[2021-08-19 19:53] VITALS: BP 136/66; PULSE 78; RESP 16; TEMP 36.4; O2SAT 94
[2021-08-19 21:29] LABS: ALB/GLOB Ratio 0.6 RATIO (0.9-2.4); AST(SGOT) 18 U/L (15-37); Alanine Aminotransfer ALT/SGPT 14 U/L (13-56); Albumin, Serum 2.9 g/dL (3.2-5.0); Alkaline Phosphatase 89 U/L (45-117); Anion Gap 6 (5-15); BUN 21 mg/dL (7-18); BUN/Creat Ratio 19.4 RATIO (10-20); Calcium,Total 9.5 mg/dL (8.5-10.1); Chloride 97 mmol/L (98-107); Creatinine, Serum 1.08 mg/dL (0.55-1.02); EST Glomerular Filtration Rate 51 mL/min (>60); Est Glom Filt Rate - Afr Amer 62 mL/min (>60); Estimated Creatinine Clearance 26.24 ml/min; Globulin 4.9 g/dL (2.2-4.2); Glucose 113 mg/dL (74-106); Potassium 4.8 mmol/L (3.5-5.1); Protein, Total 7.8 g/dL (6.4-8.2); Sodium Level 134 mmol/L (136-145)
[2021-08-19 21:34] LABS: Absolute Lymphocyte Count 1.84 X10^3/uL (0.83-4.51); Absolute Neutrophil Count 7.3 X10^3/uL (2.0-7.7); Basophil# 0.07 X10^3/uL; Basophil% 0.7 % (0-1); Eosinophil# 0.05 X10^3/uL; Eosinophils% 0.5 % (0-5); Hematocrit 46.5 % (37-47); Hemoglobin 14.9 g/dL (12.0-15.0); Lymphocyte # 1.84 X10^3/ul (0.83-4.51); Lymphocyte % 18.8 % (19-41); Mean Corpuscular Hgb 28.8 pg (27.0-32.0); Mean Corpuscular Volume 89.8 fL (81-99); Mean Platelet Vol. 9.6 fl (6.2-12.0); Monocyte# 0.48 X10^3/uL; Monocyte% 4.9 % (0-10); NRBC Flagged by Analyzer 0 % (0-5); Neutrophil % 74.7 % (47-70); Platelet Count 389 K/mm3 (150-450); RBC Distribution Width CV 15.7 % (11.6-14.6); RBC Distribution Width SD 50.7 fl (35.1-43.9); Red Blood Count 5.18 M/mm3 (4.2-5.4); White Blood Count 9.8 K/mm3 (4.4-11.0)
--- NOTE | 2021-08-19 22:12 | RAD_ITS ---
STUDY: X-RAY CHEST REASON FOR EXAM: Female, 85 years old. chest pain TECHNIQUE: PA and lateral views of the chest. COMPARISON: 02/11/2021 FINDINGS: Partially visualized aortic stent graft The lungs are clear and expanded. There is no demonstrated pleural abnormality. Normal size heart. Normal mediastinum and ricardo. Normal visualized pulmonary arteries. Normal visualized aortic arch and descending thoracic aorta. Normal visualized thoracic spine. Normal visualized ribs, clavicles, and shoulders. There is no demonstrated abnormality of the visualized soft tissue structures of the upper abdomen. RAD/Chest PA and Lateral IMPRESSION: Normal x-ray examination of the chest. Electronically Signed: Yaya Manley DO at 23:49 EST Tel , Service support ,
[2021-08-19 22:20] VITALS: BP 147/94; PULSE 69; RESP 16; O2SAT 96
[2021-08-19] MEDS: 0.9% Normal Saline 1,000 ML 999 ML IV (22:27)
[2021-08-19] MEDS: Famotidine 200 MG/20 ML MDV 20 MG in 0.9% Normal Saline (Pres. free 8 ML 300 MG IV (22:49)
[2021-08-19 23:01] LABS: Lipase 102 U/L (73-393); Thyroid Stim Hormone (TSH) 2.62 uIU/mL (0.358-3.74); Troponin-I HS 26 pg/mL (3.0-54.0)
--- NOTE | 2021-08-19 23:12 | EKG12_ITS ---
Test Reason : FEVER Blood Pressure : / mmHG Vent. Rate : 072 BPM Atrial Rate : 074 BPM P-R Int : 000 ms QRS Dur : 132 ms QT Int : 446 ms P-R-T Axes : 000 -69 053 degrees QTc Int : 488 ms Atrial fibrillation Left axis deviation Right bundle branch block T wave abnormality, consider lateral ischemia Abnormal ECG Confirmed by ALBERTO HOFF, ERIC ([id number]), food expeditor ADRIENNE KAMARA ([id number]) on 08/21/2021 9:22:39 AM Referred By: SAMEER Confirmed By:ERIC DOMINGUEZ MD
--- NOTE | 2021-08-19 23:13 | EDS_ITS ---
HPI History of Present Illness Chief Complaint: Chest Other Informant: patient and family Narrative Narrative: Patient is a 85-year-old female with history of rheumatoid arthritis, on Humira and methotrexate, hypothyroid, GERD and restless leg syndrome presenting for chest discomfort. Patient states she has been having intermittent episodes where she gets discomfort in her upper central chest where it feels hot and flushed and then she starts to feel short of breath and very anxious. A lot of times she will vomit. These episodes last about an hour at the time. They are normally in the morning but she had an episode yesterday evening. Her family member notes that she does not eat or drink well in general and they are concerned for dehydration. Patient notes that when she does not eat or drink her stomach hurts more which worsens her symptoms. She does have associated nausea. She currently has no symptoms. She denies any chest pain or abdominal pain with these episodes. She has not had an EGD in at least 6 years. She did have a barium swallow at one point but it is been many years as well. Patient notes that even if she drinks too much cold water she will have to spit it up. No other complaints at this time. Patient and family also note that she is in the process of transitioning with her living situations and this is causing her more stress/anxiety. They wonder if some of this could be anxiety related. [facility] Medical History Former smoker GERD (gastroesophageal reflux disease) Rheumatoid arthritis Home Medications Cranberry Plus Vitamin C 1 ea PO DAILY 10/08/17 [History Last Taken Unknown] esomeprazole magnesium [Nexium] 20 mg PO DAILY 10/08/17 [History Last Taken 10/11/17] ipratropium bromide 2 sprays NARES DAILY 10/08/17 [History Last Taken 10/11/17] latanoprost 1 drp EACH EYE QHS 10/08/17 [History Last Taken 10/11/17] Premarin 1 applic PO QWEEK 01/23/19 [History Last Taken Unknown] adalimumab [Humira] 40 mg SQ Q28D 01/23/19 [History Last Taken Unknown] calcium carbonate 500 mg PO DAILY 01/23/19 [History Last Taken Unknown] folic acid 2 tab PO DAILY 01/23/19 [History Last Taken Unknown] methotrexate sodium 6 tab PO QWEEK 01/23/19 [History Last Taken Unknown] cholecalciferol (vitamin D3) 1,000 unit PO DAILY 08/12/19 [History Last Taken Unknown] ondansetron 4 mg PO Q8H PRN PRN #10 tab 02/11/21 [Rx Last Taken Unknown] PreserVision AREDS-2 08/19/21 [History Last Taken Unknown] brimonidine 1 drp EACH EYE BID 08/19/21 [History Last Taken Unknown] levothyroxine 25 mcg PO DAILY 08/19/21 [History Last Taken Unknown] ropinirole 0.25 mg PO DAILY 08/19/21 [History Last Taken Unknown] Allergy/AdvReac Type Severity Reaction Status Date / Time metronidazole [From Flagyl] Allergy Hives Verified 08/19/21 19:47 acetaminophen AdvReac Nausea/Vom/ Verified 08/19/21 19:47 [From Darvocet-N] Diarrhea codeine AdvReac Vomiting Verified 08/19/21 19:47 hydrocodone [From Vicodin] AdvReac Vomiting Verified 08/19/21 19:47 naproxen [From Aleve] AdvReac Nausea/Vom/ Verified 08/19/21 19:47 Diarrhea oxycodone [From Percocet] AdvReac Nausea/Vom/ Verified 08/19/21 19:47 Diarrhea propoxyphene AdvReac Nausea/Vom/ Verified 08/19/21 19:47 [From Darvocet-N] Diarrhea Surgical History History of appendectomy Social History Smoking Status: Former smoker ROS ROS ED Constitutional Constitutional ED: Reports sweats; Denies chills or fever(s) ENT ENT ED: Denies ear pain, rhinorrhea or sore throat Cardiovascular Cardiovascular: Reports as per HPI and chest pain; Denies palpitations Respiratory/Chest Respiratory/Chest: Reports dyspnea; Denies cough Gastrointestinal Gastrointestinal: Reports nausea and vomiting; Denies abdominal pain or diarrhea Genitourinary Genitourinary ED: Denies dysuria or hematuria Musculoskeletal Musculoskeletal: Denies arthralgias or myalgias Integumentary Denies rash Neurologic Neurologic: Denies headache(s), paresthesias or weakness Psychiatric Psychiatric: Reports anxiety; Denies depression, suicidal ideation or suicidal thoughts EXAM Physical Exam Const Vital Signs: 08/19/21 19:50 08/19/21 19:53 08/19/21 22:20 Temperature 97.6 F L 97.6 F L Temperature Source Temporal Temporal Pulse Rate 78 78 69 Respiratory Rate 16 16 16 Blood Pressure 136/66 H 136/66 H 147/94 H Blood Pressure Mean 89 89 111 Pulse Ox 94 94 96 Oxygen Delivery Method Room Air Room Air Room Air 08/20/21 00:35 Temperature Temperature Source Pulse Rate 79 Respiratory Rate 18 Blood Pressure 135/68 H Blood Pressure Mean 90 Pulse Ox 95 Oxygen Delivery Method Room Air Positive well nourished and well developed Constitutional Narrative: Thin General Appearance ED: well developed and NAD HEENT Reports moist mucous membranes normocephalic and atraumatic Eyes PERRL and EOMs intact bilaterally Neck supple and no JVD General: Negative for tenderness Chest Wall inspection of chest normal Resp normal respiratory effort and clear to auscultation bilaterally Cardio regular rate, regular rhythm and no murmurs GI normal to inspection, nondistended, normoactive bowel sounds Back/Spine no CVA tenderness Extremity normal to inspection General Extremety ED: Negative for edema or tenderness General Extremity: Negative for edema Neuro oriented x3 Sensorium / Orientation: awake and alert Motor Exam: Negative for general weakness Psych mental status grossly normal Mood & Affect: anxious; Negative for depressed Skin no rashes or lesions noted Heart Score History: Slightly/Non-Suspicious ECG: Nonspecific Repolarization Age: >/= 65 years Risk Factors: 1 or 2 Risk Factors Troponin: </= Normal Limit Score: 4 MDM MDM MDM Narrative Medical decision making narrative: Patient evaluated for chest pain. Her chest pain is very atypical for ACS and I think is more consistent with some type of esophageal spasm, candidiasis or ulceration. She is currently pain-free in the emergency room. Her work-up is significant for mild elevation of her creatinine. I do suspect she has some underlying dehydration. She is given a liter of IV fluids. She is also given IV famotidine. Patient is referred to GI for outpatient follow-up as I think she would benefit from an EGD. She will follow-up with her PCP. Patient and family member are agreeable with this plan of care. Patient is discharged home in stable condition. She is counseled on return precautions. Cardiac work-up is normal. Initial EKG had poor baseline but questionably showed atrial fibrillation. Repeat had an improved baseline and was sinus rhythm. I do not think patient actually had atrial fibrillation. Lab Data Attestation: I reviewed the patient's lab results. Labs: Laboratory Results - last 24 hr 08/19/21 08/19/21 08/19/21 21:05 21:05 21:05 WBC 9.8 RBC 5.18 Hgb 14.9 Hct 46.5 MCV 89.8 MCH 28.8 MCHC 32.0 RDW Std Deviation 50.7 H RDW Coeff of Niranjan 15.7 H Plt Count 389 MPV 9.6 Immature Gran % (Auto) 0.400 Neut % (Auto) 74.7 H Lymph % (Auto) 18.8 L Ray % (Auto) 4.9 Eos % (Auto) 0.5 Baso % (Auto) 0.7 Absolute Neuts (auto) 7.3 Absolute Lymphs (auto) 1.84 Nucleated RBC % 0 Sodium 134 L Potassium 4.8 Chloride 97 L Carbon Dioxide 31.0 Anion Gap 6 BUN 21 H Creatinine 1.08 H Estim Creat Clear Calc 26.24 Est GFR (MDRD) Af Amer 62 Est GFR (MDRD) Non-Af 51 L BUN/Creatinine Ratio 19.4 Glucose 113 H Calcium 9.5 Total Bilirubin 0.50 AST 18 ALT 14 Alkaline Phosphatase 89 Troponin I High Sens 26 Total Protein 7.8 Albumin 2.9 L Globulin 4.9 H Albumin/Globulin Ratio 0.6 L Lipase 102 TSH 2.62 Radiography Chest X-Ray - ED: 2 View, Read by ED Physician, Read by Radiologist and No Acute Disease Diagnostic Testing: Clinical Impression(s) from Imaging Studies Chest X-Ray 08/19/21 22:12 IMPRESSION: Normal x-ray examination of the chest. Electronically Signed: Yaya Manley DO at 23:49 EST Tel , Service support , Rhythm Strip Rhythm Strip: Sinus Rhythm Rate: 80 Ectopy: None EKG Initial EKG: Attestation: I personally reviewed and interpreted this EKG as follows: Interpretation: Sinus Arrythmia Comments: Sinus arrhythmia rate of 72 Left axis deviation Right bundle branch block T wave inversions in V1 through V4 Poor baseline/artifact present Prior: Unchanged Follow-up EKG: Attestation: I personally reviewed and interpreted this EKG as follows: Interpretation: Sinus Rhythm Comments: Sinus rhythm with first-degree AV block VA interval 264 Left axis deviation Bifascicular block present T wave inversions in V1 through V4 No acute ischemic changes Discharge Plan Triage Chief Complaint: Chest Other ED Provider: Chio Borges Dx/Rx/DC Orders Clinical Impression: Dehydration, Atypical chest pain Instructions: ED Chest Pain, Uncertain Cause, ED Dehydration (Adult) Prescriptions: No Action latanoprost 0.005 drops 1 drp Each Eye QHS RF: 0 ipratropium bromide 0.06 spray,non-aerosol 2 sprays NARES DAILY RF: 0 esomeprazole magnesium [Nexium] 20 MG capsule 20 mg PO DAILY RF: 0 Cranberry Plus Vitamin C 1 EACH capsule 1 ea PO DAILY RF: 0 methotrexate sodium 2.5 MG tablet 6 tab PO QWEEK RF: 0 folic acid 1 MG tablet 2 tab PO DAILY RF: 0 calcium carbonate 500 MG tablet,chewable 500 mg PO DAILY RF: 0 Humira 40 MG/0.8 ML syringe kit 40 mg SQ Q28D RF: 0 Premarin 1 applic PO QWEEK RF: 0 cholecalciferol (vitamin D3) 1,000 UNIT tablet 1,000 unit PO DAILY RF: 0 ondansetron [ondansetron] 4 MG tablet 4 mg PO Q8H PRN PRN (Reason: Nausea) Qty: 10 RF: 0 ropinirole 0.25 mg Tablet 0.25 mg PO DAILY RF: 0 brimonidine 0.2 % Drops 1 drp EACH EYE BID RF: 0 levothyroxine 25 mcg Capsule 25 mcg PO DAILY RF: 0 PreserVision AREDS-2 RF: 0 Primary Care Provider: Renetta Carson Referrals: Renetta Carson MD [Primary Care Provider] - Abdoulaye Barron DO [STAFF PHYSICIAN] - Activity Restrictions/Additional Instructions: Increase Nexium to twice a day. I suspect your chest pain in GI in nature and not your heart. Disposition Disposition: Home, Self Care Discharge Date/Time: 08/20/21 01:04
--- NOTE | 2021-08-19 23:33 | EKG12_ITS ---
Test Reason : REPEAT Blood Pressure : / mmHG Vent. Rate : 079 BPM Atrial Rate : 079 BPM P-R Int : 264 ms QRS Dur : 136 ms QT Int : 450 ms P-R-T Axes : 085 -71 080 degrees QTc Int : 516 ms Sinus rhythm with 1st degree A-V block Right bundle branch block Left anterior fascicular block Bifascicular block Abnormal ECG Confirmed by ALBERTO HOFF, ERIC ([id number]), field map editor ADRIENNE KAMARA ([id number]) on 08/21/2021 9:22:55 AM Referred By: SAMEER Confirmed By:ERIC DOMINGUEZ MD
[2021-08-20 00:35] VITALS: BP 135/68; PULSE 79; RESP 18; O2SAT 95
== END 2021-08-20 01:04 | disposition home or self-care (01) ==
PROVIDERS: Emergency Provider Emergency Medicine; PCP Family Medicine
DX: E86.0 Dehydration (principal); R07.89 Other chest pain; I45.10 Unspecified right bundle-branch block; I44.0 Atrioventricular block, first degree; I45.2 Bifascicular block; E03.9 Hypothyroidism, unspecified; F41.9 Anxiety disorder, unspecified; I48.91 Unspecified atrial fibrillation; G25.81 Restless legs syndrome; K21.9 Gastro-esophageal reflux disease without esophagitis; M06.9 Rheumatoid arthritis, unspecified; Z79.899 Other long term (current) drug therapy; Z87.891 Personal history of nicotine dependence
CPT/HCPCS: 71046; 80053; 83690; 84443; 84484; 85025; 93005; 96361; 96365; 99283; J7030; A4216; J3490

== ENCOUNTER 2021-09-23 10:18 | Day surgery (SDC) | payer MEDICARE, OTHER, SELFPAY ==
--- NOTE | 2021-09-23 | ESO_PTH ---
PATIENT: ADRIA PETERSEN LOC: EN U#:[id number] AGE/SX: 85/F ROOM: RE09/23/[address]: Dr. Abdoulaye Barron DO : 1935 BED: DIS: 09/23/2021 SPEC #: [id number] RECD: 09/23/21 14:54 STATUS: MILAGRO MEEKSTana #: [id number] SHERLYN: 09/23/21 00:[address]: Abdoulaye Barron DEPT: SURGICAL PATHOLOGY RECD BY: Bill Oropeza ENTERED: 09/24/21 10:30 SP TYPE: NICHELLE SMILEY DR: Dr. Renetta Carson MD Tissues: A - Esophagus, NOS B - Gastric mucous membrane Procedures: Special Stain Group II Surgery Specimen Level IV Alcian Blue/PAS (control) HEADER OPERATION: EGD PRE-OP DIAGNOSIS: Esophageal dysphagia, weight loss, hiatal hernia TISSUE SUBMITTED: A ? Distal esophageal biopsies, B ? Gastric body biopsies MICROSCOPIC DIAGNOSIS A. Distal esophagus, biopsy: Gastroesophageal junctional mucosa with mild chronic inflammation. No evidence of goblet cell metaplasia. See comment. B. Gastric body, biopsy: Chronic gastritis. Focal intestinal metaplasia. No evidence of dysplasia. See comment. AM:marilee 09/25/2021 COMMENT A. Alcian blue/PAS stain with matched control supports the above diagnosis. B. Alcian blue/PAS stain with matched control supports the above diagnosis. Immunohistochemistry ([id number]) for P53 and Ki-67 will be performed and results will be reported separately. MICROSCOPIC DESCRIPTION Slides are reviewed. GROSS DESCRIPTION A - Received in fixative is one container labeled with the patient's name and designated distal esophagus biopsy. The specimen consists of multiple irregular fragments of light mendoza soft tissue that in aggregate measure 2 x 1 x 0.1 cm. The specimen is totally submitted in one cassette. B - Received in fixative is one container labeled with the patient's name and designated gastric body biopsy. The specimen consists of multiple irregular fragments of light mendoza soft tissue that in aggregate measure 0.5 x 0.3 x 0.1 cm. The specimen is totally submitted in one cassette. / AM:marilee 09/24/21 TC:3 CPT: 16284 x2, 86028 x2
--- NOTE | 2021-09-23 | IMM_PTH ---
PATIENT: ADRIA PETERSEN LOC: EN U#:[id number] AGE/SX: 85/F ROOM: RE09/23/[address]: Dr. Abdoulaye Barron DO : 1935 BED: DIS: 09/23/2021 SPEC #: [id number] RECD: 09/25/21 11:53 STATUS: MILAGRO RETana #: [id number] SHERLYN: 09/23/21 00:[address]: Abdoulaye Barron DEPT: IMMUNOHISTOCHEMISTRY RECD BY: Sylwia Koehler ENTERED: 09/25/21 11:54 SP TYPE: IMMUNO OT DR: Dr. Renetta Carson MD Tissues: B - Stomach, NOS Procedures: P53 (initial) KI-67 (add) PHYSICIAN & INSTITUTION [place] [id number] SPECIMEN INFORMATION: Tissue Source: B ? Gastric body biopsy Clinical Info: Esophageal dysphagia, weight loss, hiatal hernia Specimen Number: [id number] CPT code: 22200, 90674 METHODOLOGY: Deparaffinized sections of prefer/formalin-fixed tissue or PAP/DQ stained slides are incubated with monoclonal/polyclonal antibodies/oligonucleotide probes. Localization is made via biotin free immunoperoxidase method. Appropriate controls are performed and reacted as expected. Results on target cell population are indicated in the following table: RESULTS: ANTIBODY / CLONE RESULT Block B P53 (DO-7) negative Ki-67 (30-9) positive, low These tests were developed and their performance characteristics determined by [facility]. They may not have been cleared or approved by the U.S. Food and Drug Administration. The FDA has determined that such clearance or approval is not necessary. The above immunohistochemical/dualISH markers are ordered and reviewed by the Pathologist. INTERPRETATION: B. Gastric body, biopsy: Interstitial metaplasia. No evidence of dysplasia. AM:marilee 09/26/2021
[2021-09-23 10:54] VITALS: BP 115/57; PULSE 77; RESP 16; TEMP 36.8; O2SAT 100; BMI 17.9
[2021-09-23] MEDS: Lactated Ringers 1,000 ML 15 ML IV (10:57)
--- NOTE | 2021-09-23 11:04 | HP.PCM_ITS ---
History and Physical Date of Admission: 09/23/21 85 F who presents to the office today for occasional liquid food dysphagia. She is also been experiencing progressive weight loss. Her daughter says her weight goes up and down but currently her BMI is down to 18. She is always struggled with nausea and with her and her daughter called a nervous stomach. She has been on intermittent Reglan therapy for nausea. She has a history of peripheral vascular disease, coronary artery disease and aortic aneurysm status post repair with stent placement. She has had no complications from that surgery. She does take an aspirin on a daily basis. She did have a CT scan abdomen pelvis without oral and IV contrast because of CKD and it showed a moderate size hiatal hernia. She is able to swallow pills and most foods. Her daughter has on a regimen of eating small frequent meals. However she is having a very difficult time keeping her hydrated and she has to come into the emergency room for frequent IV infusions of normal saline. She has been having difficulty with regurgitation of liquids and occasionally food. Daughter feels if she drinks warmer liquids the regurgitation is not as severe. Daughter has found that eating every 2-3 hours she does not have regurgitation. Additionally reports increased nausea, decreased appetite. Symptoms are particularly worse in the morning. PCP prescribed reglan and daughter feels this has been helpful. History of rectocele surgery in 2000, 2007, 2008, 2011 Rheumatoid arthritis (Hum), abdominal aneurysm (stent placed 2007), macular degeneration and glaucoma noted additionally in her history. ROS Eyes Eyes: Positive for vision loss ENT ENT: Positive for difficulty swallowing Gastro GI: Positive for heartburn, difficulty swallowing, nausea/dyspepsia and vomiting Musc Musculoskeletal: Positive for Arthritis and restless legs Neuro Neurology: Positive for restless legs Exam Const General: cooperative and comfortable Nutritional Appearance: average body habitus and well nourished [facility] Head: normal to inspection Ears: hearing grossly normal bilaterally Nose: external nose normal Face and sinus: normal facial exam Mouth: oral mucosae normal Throat: posterior oropharynx normal Eyes General: appearance normal, both eyes and all related structures Neck Neck: normal visual inspection Chest Chest palpation & inspection: normal inspection of the chest and normal palpation of entire chest wall Resp Effort & Inspection: normal respiratory effort Auscultation: Bilateral: Clear to Auscultation Cardio Palpation: normal PMI Rate: regular rate Rhythm: regular rhythm GI Inspection: normal to inspection Auscultation: normal bowel sounds Percussion: normal to percussion Palpation: no hepatosplenomegaly Skin General: no rashes or lesions noted Neuro General: patient alert Extrem General: normal to inspection Psych Affect: normal affect Quality Reporting Tobacco Screening ([facility] 138) Smoking Status: Former smoker Assessment and Plan Assessment and Plan (1) Esophageal dysphagia: Status: Acute Plan - Dr. Stanford Friend, DO: We will evaluate her upper GI tract for an esophageal stricture, esophageal web, hiatal hernia, erosive esophagitis, eosinophilic esophagitis or extrinsic compression. (2) Weight loss: Status: Acute Plan - Dr. Stanford Friend, DO: Weight loss is really concerning. I suspect that it is secondary to either dysmotility disorder involving the stomach, esophagus or small bowel. Also because of weight loss she should be checked for rheumatologic disorder. We discussed the risk and benefits of her being on chronic medical therapy including PPI therapy. I would decrease her down to once a day now until we can properly evaluate her upper GI tract. Since the fact that she is still very thin with a BMI 18 she is very very high risk for osteoporosis related fracture. (3) Hiatal hernia: Status: Acute I have re-examined the patient. There are no clinical changes since date of exam.
--- NOTE | 2021-09-23 11:56 | OP.EGD_ITS ---
Patient Name: Monica eRa Procedure Date: 09/23/2021 11:29 AM Date of : 1935 Age: 85 Procedure: Upper GI endoscopy Indications: Dysphagia Providers: Abdoulaye Barron DO Medicines: See the Anesthesia note for documentation of the administered medications Patient Profile: This is an 85 year old female. Refer to note in patient chart for documentation of history and physical. Patient has symptoms of chronic dysphagia and dysphagia with solids. The symptoms first began July. Complications: No immediate complications. Procedure: Pre-Anesthesia Assessment: - Prior to the procedure, a History and Physical was performed, and patient medications and allergies were reviewed. The risks and benefits of the procedure and the sedation options and risks were discussed with the patient. All questions were answered and informed consent was obtained. Patient identification and proposed procedure were verified by the physician in the pre-procedure area. Mental Status Examination: alert and oriented. Airway Examination: normal oropharyngeal airway and neck mobility. Respiratory Examination: clear to auscultation. CV Examination: normal. Prophylactic Antibiotics: The patient does not require prophylactic antibiotics. Prior Anticoagulants: The patient has taken no previous anticoagulant or antiplatelet agents. ASA Grade Assessment: II - A patient with mild systemic disease. After reviewing the risks and benefits, the patient was deemed in satisfactory condition to undergo the procedure. The anesthesia plan was to use moderate sedation / analgesia (conscious sedation). Immediately prior to administration of medications, the patient was re-assessed for adequacy to receive sedatives. The heart rate, respiratory rate, oxygen saturations, blood pressure, adequacy of pulmonary ventilation, and response to care were monitored throughout the procedure. The physical status of the patient was re-assessed after the procedure. After obtaining informed consent, the endoscope was passed under direct vision. Throughout the procedure, the patient's blood pressure, pulse, and oxygen saturations were monitored continuously. The Colonoscope was introduced through the mouth, and advanced to the second part of duodenum. The upper GI endoscopy was accomplished without difficulty. The patient tolerated the procedure well. Moderate Sedation: Moderate (conscious) sedation was administered by the endoscopy nurse and supervised by the endoscopist. The patient's oxygen saturation, heart rate, blood pressure and response to care were monitored. Total physician intraservice time was 15 minutes. Findings: A moderate Schatzki ring was found in the lower third of the esophagus. A guidewire was placed and the scope was withdrawn. Dilation was performed with a Savary dilator with no resistance at 54 Fr. LA Grade A (one or more mucosal breaks less than 5 mm, not extending between tops of 2 mucosal folds) esophagitis with no bleeding was found 34 to 35 cm from the incisors. Biopsies were taken with a cold forceps for histology. Verification of patient identification for the specimen was done. Estimated blood loss was minimal. A medium-sized hiatal hernia was present. The second portion of the duodenum was normal. Localized moderate inflammation characterized by congestion (edema), erosions and erythema was found in the gastric body. Biopsies were taken with a cold forceps for histology. Verification of patient identification for the specimen was done. Estimated blood loss was minimal. Impression: - Moderate Schatzki ring. Dilated. - LA Grade A reflux esophagitis. Biopsied. - Medium-sized hiatal hernia. - Normal second portion of the duodenum. Recommendation: - Discharge patient to home. - Resume previous diet. - Continue present medications. - Await pathology results. - Return to my office in 2 weeks. Procedure Code(s): --- Professional --- 70191, Esophagogastroduodenoscopy, flexible, transoral; with insertion of guide wire followed by passage of dilator(s) through esophagus over guide wire 93118, 59, Esophagogastroduodenoscopy, flexible, transoral; with biopsy, single or multiple 47375, 59, Moderate sedation services provided by the same physician or other qualified health child care center administrator performing the diagnostic or therapeutic service that the sedation supports, requiring the presence of an independent trained observer to assist in the monitoring of the patient's level of consciousness and physiological status; initial 15 minutes of intraservice time, patient age 5 years or older CPT copyright 2017 [employer]. All rights reserved. The codes documented in this report are preliminary and upon email operations manager review may be revised to meet current compliance requirements. Abdoulaye Barron DO 09/23/2021 11:56:31 AM This report has been signed electronically. Number of Addenda: 1 Note Initiated On: 09/23/2021 11:29 AM Addendum Number: 1 Addendum Date: 06/18/2022 7:09:04 AM MAC was used instead of moderate sedation for the patient. Abdoulaye Barron DO 06/18/2022 7:09:08 AM This report has been signed electronically.
[2021-09-23 11:57] VITALS: BP 115/57; BP 120/54; PULSE 72; RESP 14; TEMP 36.8; O2SAT 99
--- NOTE | 2021-09-23 11:57 | OP.CCLET_ITS ---
06/18/2022 Renetta Carson [place] [id number] [facility] [address] Re : Upper GI endoscopy procedure for Monica Rea Dear Dr. Carson This procedure was performed on Thursday, September 23, 2021. My impressions and recommendations are as follows: Impressions : - Moderate Schatzki ring. Dilated. - LA Grade A reflux esophagitis. Biopsied. - Medium-sized hiatal hernia. - Normal second portion of the duodenum. Recommendations : - Discharge patient to home. - Resume previous diet. - Continue present medications. - Await pathology results. - Return to my office in 2 weeks. My findings are described in the full procedure note, which is enclosed. If I can be of further assistance, please feel free to contact me at . Sincerely, Abdoulaye Barron, 09/23/2021 11:56:31 AM This report has been signed electronically.
[2021-09-23 12:02] VITALS: BP 115/49; BP 115/57; PULSE 72; RESP 14; O2SAT 97
[2021-09-23 12:07] VITALS: BP 114/58; BP 115/57; PULSE 64; RESP 14; O2SAT 96
[2021-09-23 12:10] VITALS: BP 115/57; BP 116/62; PULSE 71; RESP 14; O2SAT 98
[2021-09-23 12:29] VITALS: BP 115/57
== END 2021-09-23 12:58 | disposition home or self-care (01) ==
LOC: EN 10:19 → AC 10:20
PROVIDERS: PCP Family Medicine; Referring Provider Family Medicine; Visit Provider Internal Medicine Gastroenterology
PROC: (CPT 43239; principal; 2021-09-23 11:25)
DX: K22.2 Esophageal obstruction (principal); K29.50 Unspecified chronic gastritis without bleeding; K21.00 Gastro-esophageal reflux disease with esophagitis, without bleeding; K44.9 Diaphragmatic hernia without obstruction or gangrene; Z87.891 Personal history of nicotine dependence
CPT/HCPCS: 43239; 43248; 88305; 88313; 88341; 88342; J7120; C1769; J2405

== ENCOUNTER 2021-10-14 14:09 | Outpatient (CLI) | payer MEDICARE, OTHER, SELFPAY ==
[2021-10-14 16:05] LABS: Absolute Lymphocyte Count 1.42 X10^3/uL (0.83-4.51); Absolute Neutrophil Count 10.9 X10^3/uL (2.0-7.7); Basophil# 0.08 X10^3/uL; Basophil% 0.6 % (0-1); Eosinophil# 0.11 X10^3/uL; Eosinophils% 0.8 % (0-5); Hematocrit 35.3 % (37-47); Hemoglobin 11.1 g/dL (12.0-15.0); Lymphocyte # 1.42 X10^3/ul (0.83-4.51); Lymphocyte % 10.8 % (19-41); Mean Corp Hgb Conc 31.4 g/dL (32-36); Mean Corpuscular Volume 92.2 fL (81-99); Mean Platelet Vol. 9.8 fl (6.2-12.0); Monocyte# 0.61 X10^3/uL; Monocyte% 4.6 % (0-10); NRBC Flagged by Analyzer 0 % (0-5); Neutrophil # 10.92 X10^3/uL (2.7-7.7); Neutrophil % 82.7 % (47-70); Platelet Count 349 K/mm3 (150-450); RBC Distribution Width CV 17.8 % (11.6-14.6); RBC Distribution Width SD 58.5 fl (35.1-43.9); Red Blood Count 3.83 M/mm3 (4.2-5.4); White Blood Count 13.2 K/mm3 (4.4-11.0)
[2021-10-14 16:12] LABS: ALB/GLOB Ratio 0.6 RATIO (0.9-2.4); AST(SGOT) 16 U/L (15-37); Alanine Aminotransfer ALT/SGPT 24 U/L (13-56); Albumin, Serum 2.4 g/dL (3.2-5.0); Alkaline Phosphatase 92 U/L (45-117); Anion Gap 7 (5-15); BUN 26 mg/dL (7-18); BUN/Creat Ratio 24.1 RATIO (10-20); Calcium,Total 8.6 mg/dL (8.5-10.1); Chloride 98 mmol/L (98-107); Creatinine, Serum 1.08 mg/dL (0.55-1.02); EST Glomerular Filtration Rate 51 mL/min (>60); Est Glom Filt Rate - Afr Amer 62 mL/min (>60); Globulin 4.2 g/dL (2.2-4.2); Glucose 140 mg/dL (74-106); Potassium 4.1 mmol/L (3.5-5.1); Protein, Total 6.6 g/dL (6.4-8.2); Sodium Level 136 mmol/L (136-145)
== END 2021-10-14 23:59 | disposition short-term general hospital (02) ==
PROVIDERS: PCP Family Medicine; Referring Provider Internal Medicine Rheumatology; Visit Provider Internal Medicine Rheumatology
DX: M06.00 Rheumatoid arthritis without rheumatoid factor, unspecified site (principal); Z79.899 Other long term (current) drug therapy; Z79.52 Long term (current) use of systemic steroids; M15.9 Polyosteoarthritis, unspecified; M47.897 Other spondylosis, lumbosacral region; H35.30 Unspecified macular degeneration; H40.9 Unspecified glaucoma; I10 Essential (primary) hypertension; J30.9 Allergic rhinitis, unspecified; M81.0 Age-related osteoporosis without current pathological fracture; E78.5 Hyperlipidemia, unspecified
CPT/HCPCS: 36415; 80053; 85025

== ENCOUNTER 2022-01-07 14:10 | Outpatient (CLI) | payer MEDICARE, OTHER, SELFPAY ==
[2022-01-07 17:49] LABS: Absolute Lymphocyte Count 1.67 X10^3/uL (0.83-4.51); Absolute Neutrophil Count 11.5 X10^3/uL (2.0-7.7); Basophil# 0.13 X10^3/uL; Basophil% 0.9 % (0-1); Eosinophil# 0.17 X10^3/uL; Eosinophils% 1.2 % (0-5); Hemoglobin 12.8 g/dL (12.0-15.0); Lymphocyte # 1.67 X10^3/ul (0.83-4.51); Lymphocyte % 11.7 % (19-41); Mean Corpuscular Hgb 29.5 pg (27.0-32.0); Mean Corpuscular Volume 92.2 fL (81-99); Mean Platelet Vol. 10.3 fl (6.2-12.0); Monocyte# 0.75 X10^3/uL; Monocyte% 5.2 % (0-10); NRBC Flagged by Analyzer 0 % (0-5); Neutrophil # 11.53 X10^3/uL (2.7-7.7); Neutrophil % 80.5 % (47-70); Platelet Count 355 K/mm3 (150-450); RBC Distribution Width CV 17.7 % (11.6-14.6); RBC Distribution Width SD 58.7 fl (35.1-43.9); Red Blood Count 4.34 M/mm3 (4.2-5.4); White Blood Count 14.3 K/mm3 (4.4-11.0)
[2022-01-07 18:09] LABS: ALB/GLOB Ratio 0.8 RATIO (0.9-2.4); AST(SGOT) 26 U/L (15-37); Alanine Aminotransfer ALT/SGPT 27 U/L (13-56); Albumin, Serum 3.2 g/dL (3.2-5.0); Alkaline Phosphatase 62 U/L (45-117); Anion Gap 4 (5-15); BUN 46 mg/dL (7-18); BUN/Creat Ratio 49.5 RATIO (10-20); Calcium,Total 9.1 mg/dL (8.5-10.1); Chloride 102 mmol/L (98-107); Creatinine, Serum 0.93 mg/dL (0.55-1.02); EST Glomerular Filtration Rate 61 mL/min (>60); Est Glom Filt Rate - Afr Amer 73 mL/min (>60); Globulin 3.9 g/dL (2.2-4.2); Glucose 104 mg/dL (74-106); Potassium 3.6 mmol/L (3.5-5.1); Protein, Total 7.1 g/dL (6.4-8.2); Sodium Level 138 mmol/L (136-145)
== END 2022-01-07 23:59 | disposition home or self-care (01) ==
LOC: MTLAB 14:11
PROVIDERS: PCP Family Medicine; Referring Provider Internal Medicine Rheumatology; Visit Provider Internal Medicine Rheumatology
DX: M06.00 Rheumatoid arthritis without rheumatoid factor, unspecified site (principal); M15.9 Polyosteoarthritis, unspecified; M47.897 Other spondylosis, lumbosacral region; H35.30 Unspecified macular degeneration; H40.9 Unspecified glaucoma; I10 Essential (primary) hypertension; J30.9 Allergic rhinitis, unspecified; M81.0 Age-related osteoporosis without current pathological fracture; E78.5 Hyperlipidemia, unspecified; Z79.899 Other long term (current) drug therapy; Z79.52 Long term (current) use of systemic steroids
CPT/HCPCS: 36415; 80053; 85025

== ENCOUNTER → 2022-03-14 | Outpatient (CLI) | payer MEDICARE, OTHER, SELFPAY | END | disposition home or self-care (01) | PROVIDERS: PCP Family Medicine; Referring Provider Family Medicine; Visit Provider Family Medicine | DX: R39.15 Urgency of urination (principal) | CPT/HCPCS: 87086 ==

== ENCOUNTER → 2022-03-19 | Outpatient (CLI) | payer MEDICARE, OTHER, SELFPAY ==
--- NOTE | 2022-03-19 11:02 | BD_ITS ---
STUDY: DUAL ENERGY X-RAY ABSORPTIOMETRY / DXA REASON FOR EXAM: Female, 86 years old. M810 TECHNIQUE: Bone Mineral Density (BMD) measurements of lumbar spine and right hip were obtained. COMPARISON: Comparison is made with prior study dated 01/28/2018. FINDINGS: Lumbar Spine (L1-L4): g/cm2 (0.989) / T-score (-0.3) / Z-score (2.5) Findings are suggestive of normal bone density with a low fracture risk. Right Femur Total: g/cm2 (0.635) / T-score (-2.5) / Z-score (-0.2) Right Femoral Neck: g/cm2 (0.485) / T-score (-3.3) / Z-score (-0.8) The T-Scores on the most recent prior examination were: Lumbar Spine (L1-L4): There has been improvement of bone density since the previous examination. Right Femur Total: which represents an improvement of 2.4%. BD/Dexa Bone Density Study IMPRESSION: The patient is considered osteopenic as outlined below according to World Mack Organization (WHO) criteria with a high fracture risk. There has been improvement of bone density since the previous examination. Reference Information: The T-score is the number of standard deviations above or below the standard which is normal for young adults at their peak bone mineral density. The World Health Organization (WHO) interprets the T-scores as follows: Above -1 Normal bone density Between -1 and -2.5 Osteopenia Equal to / or below -2.5 Osteoporosis As a practical clinical guideline, osteopenia may be graded as follows: Mild -1 through -1.5 Moderate -1.6 through -2.0 Severe -2.1 through -2.4 The Z-score is the number of standard deviations above or below age-matched controls. A Z-score of less than -1.5 would be considered abnormal. References: 1. NIH Osteoporosis and Related Bone Diseases www osteo.org 2. International Society for Clinical Densitometry www iscd.org 3. National Osteoporosis Foundation www nof.org Electronically Signed: Edward Nicole MD at 8:36 EDT ,
== END | disposition home or self-care (01) ==
LOC: OPBD 10:54
PROVIDERS: PCP Family Medicine; Visit Provider Family Medicine
DX: M81.0 Age-related osteoporosis without current pathological fracture (principal)
CPT/HCPCS: 77080

== ENCOUNTER → 2022-04-10 | Outpatient (CLI) | payer MEDICARE, OTHER, SELFPAY ==
[2022-04-10 12:39] LABS: Absolute Lymphocyte Count 2.67 X10^3/uL (0.83-4.51); Absolute Neutrophil Count 8.7 X10^3/uL (2.0-7.7); Basophil# 0.05 X10^3/uL; Basophil% 0.4 % (0-1); Eosinophil# 0.11 X10^3/uL; Eosinophils% 0.9 % (0-5); Hematocrit 43.6 % (37-47); Hemoglobin 13.7 g/dL (12.0-15.0); Lymphocyte # 2.67 X10^3/ul (0.83-4.51); Lymphocyte % 20.7 % (19-41); Mean Corp Hgb Conc 31.4 g/dL (32-36); Mean Corpuscular Volume 95.4 fL (81-99); Mean Platelet Vol. 10.1 fl (6.2-12.0); Monocyte# 1.19 X10^3/uL; Monocyte% 9.2 % (0-10); NRBC Flagged by Analyzer 0 % (0-5); Neutrophil # 8.71 X10^3/uL (2.7-7.7); Neutrophil % 67.7 % (47-70); Platelet Count 298 K/mm3 (150-450); RBC Distribution Width CV 16.8 % (11.6-14.6); RBC Distribution Width SD 57.1 fl (35.1-43.9); Red Blood Count 4.57 M/mm3 (4.2-5.4); White Blood Count 12.9 K/mm3 (4.4-11.0)
[2022-04-10 13:06] LABS: ALB/GLOB Ratio 0.9 RATIO (0.9-2.4); AST(SGOT) 21 U/L (15-37); Alanine Aminotransfer ALT/SGPT 27 U/L (13-56); Albumin, Serum 3.2 g/dL (3.2-5.0); Alkaline Phosphatase 63 U/L (45-117); Anion Gap 5 (5-15); BUN 35 mg/dL (7-18); BUN/Creat Ratio 37.6 RATIO (10-20); Calcium,Total 8.9 mg/dL (8.5-10.1); Chloride 101 mmol/L (98-107); Creatinine, Serum 0.93 mg/dL (0.55-1.02); EST Glomerular Filtration Rate 60 mL/min (>60); Est Glom Filt Rate - Afr Amer 73 mL/min (>60); Globulin 3.6 g/dL (2.2-4.2); Glucose 76 mg/dL (74-106); Potassium 4.1 mmol/L (3.5-5.1); Protein, Total 6.8 g/dL (6.4-8.2); Sodium Level 139 mmol/L (136-145)
== END | disposition home or self-care (01) ==
LOC: MTLAB 10:52
PROVIDERS: PCP Family Medicine; Referring Provider Internal Medicine Rheumatology; Visit Provider Internal Medicine Rheumatology
DX: M06.00 Rheumatoid arthritis without rheumatoid factor, unspecified site (principal); Z79.899 Other long term (current) drug therapy; Z79.52 Long term (current) use of systemic steroids; M15.9 Polyosteoarthritis, unspecified; M47.897 Other spondylosis, lumbosacral region; H35.30 Unspecified macular degeneration; H40.9 Unspecified glaucoma; I10 Essential (primary) hypertension; J30.9 Allergic rhinitis, unspecified; M81.0 Age-related osteoporosis without current pathological fracture; E78.5 Hyperlipidemia, unspecified
CPT/HCPCS: 36415; 80053; 85025

== ENCOUNTER → 2022-07-09 | Outpatient (CLI) | payer MEDICARE, OTHER, SELFPAY ==
[2022-07-09 12:39] LABS: Absolute Lymphocyte Count 2.68 X10^3/uL (0.83-4.51); Absolute Neutrophil Count 7.2 X10^3/uL (2.0-7.7); Basophil# 0.08 X10^3/uL; Basophil% 0.7 % (0-1); Eosinophil# 0.14 X10^3/uL; Eosinophils% 1.3 % (0-5); Hematocrit 46.7 % (37-47); Hemoglobin 14.6 g/dL (12.0-15.0); Lymphocyte # 2.68 X10^3/ul (0.83-4.51); Lymphocyte % 24.7 % (19-41); Mean Corp Hgb Conc 31.3 g/dL (32-36); Mean Corpuscular Hgb 30.7 pg (27.0-32.0); Mean Corpuscular Volume 98.3 fL (81-99); Mean Platelet Vol. 10.4 fl (6.2-12.0); Monocyte# 0.69 X10^3/uL; Monocyte% 6.4 % (0-10); NRBC Flagged by Analyzer 0 % (0-5); Neutrophil # 7.16 X10^3/uL (2.7-7.7); Platelet Count 252 K/mm3 (150-450); RBC Distribution Width CV 17.2 % (11.6-14.6); RBC Distribution Width SD 60.3 fl (35.1-43.9); Red Blood Count 4.75 M/mm3 (4.2-5.4); White Blood Count 10.9 K/mm3 (4.4-11.0)
[2022-07-09 13:01] LABS: AST(SGOT) 21 U/L (15-37); Alanine Aminotransfer ALT/SGPT 32 U/L (13-56); Albumin, Serum 3.3 g/dL (3.2-5.0); Alkaline Phosphatase 57 U/L (45-117); Anion Gap 7 (5-15); BUN 44 mg/dL (7-18); BUN/Creat Ratio 35.2 RATIO (10-20); Calcium,Total 9.2 mg/dL (8.5-10.1); Chloride 99 mmol/L (98-107); Creatinine, Serum 1.25 mg/dL (0.55-1.02); EST Glomerular Filtration Rate 43 mL/min (>60); Est Glom Filt Rate - Afr Amer 52 mL/min (>60); Globulin 3.4 g/dL (2.2-4.2); Glucose 80 mg/dL (74-106); Protein, Total 6.7 g/dL (6.4-8.2); Sodium Level 139 mmol/L (136-145)
== END | disposition home or self-care (01) ==
LOC: MTLAB 10:56
PROVIDERS: PCP Registered Nurse; Referring Provider Internal Medicine Rheumatology; Visit Provider Internal Medicine Rheumatology
DX: M06.00 Rheumatoid arthritis without rheumatoid factor, unspecified site (principal); Z79.899 Other long term (current) drug therapy; Z79.52 Long term (current) use of systemic steroids; M15.9 Polyosteoarthritis, unspecified; M47.897 Other spondylosis, lumbosacral region; H35.30 Unspecified macular degeneration; H40.9 Unspecified glaucoma; I10 Essential (primary) hypertension; J30.9 Allergic rhinitis, unspecified; M81.0 Age-related osteoporosis without current pathological fracture; E78.5 Hyperlipidemia, unspecified
CPT/HCPCS: 36415; 80053; 85025

== ENCOUNTER → 2022-08-06 | Outpatient (CLI) | payer MEDICARE, OTHER, SELFPAY ==
[2022-08-06 14:57] LABS: Absolute Lymphocyte Count 1.07 X10^3/uL (0.83-4.51); Absolute Neutrophil Count 11.1 X10^3/uL (2.0-7.7); Basophil% 0.8 % (0-1); Eosinophils% 0.8 % (0-5); Hematocrit 50.4 % (37-47); Hemoglobin 15.9 g/dL (12.0-15.0); Lymphocyte # 1.07 X10^3/ul (0.83-4.51); Lymphocyte % 8.1 % (19-41); Mean Corp Hgb Conc 31.5 g/dL (32-36); Mean Corpuscular Hgb 31.3 pg (27.0-32.0); Mean Corpuscular Volume 99.2 fL (81-99); Monocyte# 0.67 X10^3/uL; Monocyte% 5.1 % (0-10); NRBC Flagged by Analyzer 0 % (0-5); Neutrophil # 11.05 X10^3/uL (2.7-7.7); Neutrophil % 83.8 % (47-70); Platelet Count 261 K/mm3 (150-450); RBC Distribution Width CV 15.8 % (11.6-14.6); RBC Distribution Width SD 57.6 fl (35.1-43.9); Red Blood Count 5.08 M/mm3 (4.2-5.4); White Blood Count 13.2 K/mm3 (4.4-11.0)
[2022-08-06 15:20] LABS: AST(SGOT) 21 U/L (15-37); Alanine Aminotransfer ALT/SGPT 25 U/L (13-56); Albumin, Serum 3.3 g/dL (3.2-5.0); Alkaline Phosphatase 56 U/L (45-117); Anion Gap 4 (5-15); BUN 33 mg/dL (7-18); BUN/Creat Ratio 25.8 RATIO (10-20); Calcium,Total 9.1 mg/dL (8.5-10.1); Chloride 100 mmol/L (98-107); Creatinine, Serum 1.28 mg/dL (0.55-1.02); EST Glomerular Filtration Rate 42 mL/min (>60); Est Glom Filt Rate - Afr Amer 51 mL/min (>60); Globulin 3.4 g/dL (2.2-4.2); Glucose 110 mg/dL (74-106); Potassium 4.4 mmol/L (3.5-5.1); Protein, Total 6.7 g/dL (6.4-8.2); Sodium Level 138 mmol/L (136-145)
== END | disposition home or self-care (01) ==
PROVIDERS: PCP Registered Nurse; Referring Provider Internal Medicine Rheumatology; Visit Provider Internal Medicine Rheumatology
DX: M06.00 Rheumatoid arthritis without rheumatoid factor, unspecified site (principal); M15.9 Polyosteoarthritis, unspecified; M47.897 Other spondylosis, lumbosacral region; H35.30 Unspecified macular degeneration; H40.9 Unspecified glaucoma; I10 Essential (primary) hypertension; J30.9 Allergic rhinitis, unspecified; M81.0 Age-related osteoporosis without current pathological fracture; E78.5 Hyperlipidemia, unspecified; Z79.52 Long term (current) use of systemic steroids; Z79.899 Other long term (current) drug therapy
CPT/HCPCS: 36415; 80053; 85025

== ENCOUNTER 2022-09-19 14:01 | Inpatient (IN) | payer MEDICARE, OTHER, SELFPAY ==
[2022-09-19] VITALS (14 sets, daily range): BP systolic 122–139; BP diastolic 58–82; PULSE 80–95; RESP 18–30; TEMP 36–36.8; O2SAT 92–98; BMI 20.1; BMI 19.4
--- NOTE | 2022-09-19 14:31 | EKG12_ITS ---
Test Reason : Blood Pressure : / mmHG Vent. Rate : 087 BPM Atrial Rate : 000 BPM P-R Int : 000 ms QRS Dur : 130 ms QT Int : 392 ms P-R-T Axes : 000 -56 095 degrees QTc Int : 471 ms Atrial fibrillation Right bundle branch block Left anterior fascicular block Bifascicular block Left ventricular hypertrophy with repolarization abnormality ( R in aVL ) Abnormal ECG Confirmed by ELIGIO HOFF, MARIE ([id number]), map editor ADRIENNE KAMARA ([id number]) on 09/23/2022 10:10:13 AM Referred By: CAYDEN Confirmed By:GLADIS DEL VALLE MD
--- NOTE | 2022-09-19 14:32 | EDS_ITS ---
HPI History of Present Illness Chief Complaint: Shortness of Breath Informant: patient and family Narrative Narrative: 86-year-old female history of COPD and diastolic CHF presenting to the emergency department with dyspnea. Patient went to see Dr. Le in pulmonology. Patient was diagnosed with diastolic CHF in May. She has been on diuretics including spironolactone and Bumex. Family states that there has been no changes in her medications since the diagnosis. Unfortunately this week she started to retain fluid and her breathing has worsened. She recently got home oxygen. She was noted to be significantly dyspneic. She has been compliant wit h her Eliquis. She is a DNR/DO NOT INTUBATE. 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 She was discharged home on 09/08/2022. Family states that she normally weighs 104 pounds. Today she is weighing roughly 120. PFSH PFSH Medical History Chronic cough Chronic respiratory failure with hypoxia Diastolic CHF, acute on chronic Dilation of esophagus Esophageal dysphagia Former smoker GERD (gastroesophageal reflux disease) Glaucoma Hiatal hernia History of deviated nasal septum History of diverticulitis History of femur fracture History of rectocele Hypothyroidism Low iron Macular degeneration Restless legs Rheumatoid arthritis Smoker within last 12 months Home Medications cranberry concentrate-ascorbic acid 140 mg-100 mg capsule (Cranberry Plus Vitamin C) 1 ea PO DAILY supplement 10/08/17 [History Last Taken Unknown] ipratropium bromide 42 mcg (0.06 %) nasal spray 2 sprays DAILY nasal drainage 10/08/17 [History Last Taken 10/11/17] latanoprost 0.005 % eye drops 1 drp QHS glaucoma 10/08/17 [History Last Taken 10/11/17] Premarin 1 applic PO QWEEK 01/23/19 [History Last Taken Unknown] adalimumab 40 mg/0.8 mL subcutaneous syringe kit (Humira) 40 mg SQ Q14D 01/23/19 [History Last Taken Unknown] calcium carbonate 500 mg calcium (1,250 mg) chewable tablet 500 mg PO DAILY 01/23/19 [History Last Taken Unknown] folic acid 1 mg tablet 2 tab PO DAILY 01/23/19 [History Last Taken Unknown] cholecalciferol (vitamin D3) 25 mcg (1,000 unit) tablet 1,000 unit PO DAILY 08/12/19 [History Last Taken Unknown] PreserVision AREDS-2 2 cap PO/SL DAILY 08/19/21 [History Last Taken Unknown] brimonidine 0.2 % eye drops 1 drp EACH EYE BID 08/19/21 [History Last Taken Unknown] levothyroxine 25 mcg capsule 25 mcg PO DAILY 08/19/21 [History Last Taken 09/23/21 08:30] ropinirole 0.25 mg tablet 0.25 mg PO DAILY 08/19/21 [History Last Taken Unknown] ondansetron 8 mg disintegrating tablet 8 mg PO Q8H PRN nausea and vomiting #30 tabs 02/19/22 [Rx Last Taken Unknown] pantoprazole 40 mg tablet,delayed release (Protonix) 40 mg PO DAILY #90 tabs 05/07/22 [Rx Last Taken Unknown] prednisolone sodium phosphate 15 mg disintegrating tablet 15 mg PO DAILY #30 tabs 08/29/22 [Rx Last Taken Unknown] apixaban 2.5 mg tablet (Eliquis) 2.5 mg PO BID 09/19/22 [History Last Taken Unknown] bumetanide 0.5 mg tablet 0.5 mg PO DAILY 09/19/22 [History Last Taken Unknown] docusate sodium 100 mg capsule (Colace) 100 mg PO Q OTHER DAY 09/19/22 [History Last Taken Unknown] ferrous sulfate 142 mg (45 mg iron) tablet,extended release (Slow Release Iron) 142 mg PO DAILY 09/19/22 [History Last Taken Unknown] losartan 25 mg tablet 25 mg PO DAILY 09/19/22 [History Last Taken Unknown] spironolactone 25 mg tablet 25 mg PO Q OTHER DAY 09/19/22 [History Last Taken Unknown] Allergy/AdvReac Type Severity Reaction Status Date / Time metronidazole [From Flagyl] Allergy Hives Verified 09/19/22 14:05 acetaminophen AdvReac Nausea/Vom/ Verified 09/19/22 14:05 [From Darvocet-N] Diarrhea codeine AdvReac Vomiting Verified 09/19/22 14:05 hydrocodone [From Vicodin] AdvReac Vomiting Verified 09/19/22 14:05 naproxen [From Aleve] AdvReac Nausea/Vom/ Verified 09/19/22 14:05 Diarrhea oxycodone [From Percocet] AdvReac Nausea/Vom/ Verified 09/19/22 14:05 Diarrhea propoxyphene AdvReac Nausea/Vom/ Verified 09/19/22 14:05 [From Darvocet-N] Diarrhea Family History Other Diabetes HLD (hyperlipidemia) Surgical History History of abdominal aortic aneurysm (AAA) repair History of appendectomy History of carpal tunnel release of both wrists History of colonoscopy History of dental surgery History of hysterectomy History of knee surgery History of left knee replacement History of reconstructive repair of rectocele Social History household members: none Smoking Status: Former smoker alcohol intake: never substance use type: does not use ROS ROS ED Constitutional Constitutional ED: Denies chills or weight loss Eyes Eyes: Denies change in vision or diplopia ENT ENT ED: Denies ear pain, rhinorrhea or sore throat Cardiovascular Cardiovascular: Reports orthopnea; Denies chest pain, palpitations or racing heartbeat Respiratory/Chest Respiratory/Chest: Reports cough, dyspnea, dyspnea on exertion and orthopnea Gastrointestinal Gastrointestinal: Denies abdominal pain, diarrhea, nausea or vomiting Genitourinary Genitourinary ED: Denies dysuria, hematuria or urinary frequency Musculoskeletal Musculoskeletal: Denies arthralgias or myalgias Integumentary Denies abscess or rash Neurologic Neurologic: Denies headache(s) or weakness Psychiatric Psychiatric: Reports anxiety; Denies depression, suicidal ideation or suicidal thoughts Endocrine Endocrinology: Denies polydipsia, polyphagia or polyuria Hematologic/Lymphatic Hematologic/Lymphatic: Reports easy bleeding and easy bruising Allergic/Immunologic Allergic/Immunologic ED: Denies mouth swelling, tongue swelling or urticaria EXAM Physical Exam Const Vital Signs: 09/19/22 14:02 09/19/22 14:34 09/19/22 14:35 Temperature 97.0 F L Temperature Source Temporal Pulse Rate 87 Respiratory Rate 22 H Respiratory Effort Short of Breath Labored Nasal Flaring Respiratory Pattern Tachypnea Blood Pressure 123/58 H Blood Pressure Mean 79 Pulse Ox 97 94 Oxygen Delivery Method Nasal Cannula Nasal Cannula Nasal Cannula Oxygen Flow Rate (L/min) 2 2 2 09/19/22 15:14 Temperature Temperature Source Pulse Rate 80 Respiratory Rate 26 H Respiratory Effort Respiratory Pattern Blood Pressure 138/74 H Blood Pressure Mean 95 Pulse Ox 94 Oxygen Delivery Method Nasal Cannula Oxygen Flow Rate (L/min) 2 Positive well nourished and well developed General Appearance ED: well developed HEENT Reports normocephalic, head/scalp atraumatic and moist mucous membranes Eyes PERRL and EOMs intact bilaterally Neck no lymphadenopathy, supple and no JVD Resp Resp Narrative: Patient is tachypneic but not in distress. She has conversational dyspnea. Auscultation: rales and diminished lung sounds Cardio regular rate, regular rhythm and no murmurs GI normal to inspection, nondistended, normoactive bowel sounds and non-tender Palpation: soft Back/Spine no CVA tenderness and normal ROM Extremity Extremity Narrative: Bilateral lower extremity pitting edema Neuro oriented x3 and CN's II-XII intact bilaterally Sensorium / Orientation: alert Motor Exam: strength 5/5 throughout Psych mental status grossly normal Mood & Affect: anxious; Negative for depressed or tearful Skin no rashes or lesions noted and no wounds MDM MDM MDM Narrative Medical decision making narrative: Interpretation of the chest x-ray is no acute infiltrate. White count 14.9 hemoglobin 15.2. INR is 1. CO2 of 42 BUN of 38 with creatinine 1.24. Troponin is 91 BNP is 125. Patient received additional Lasix. Patient has dyspnea at rest and conversational dyspnea. Lab Data Attestation: I reviewed the patient's lab results. Labs: Laboratory Results - last 24 hr 09/19/22 09/19/22 09/19/22 14:30 14:30 14:30 WBC 14.9 H RBC 4.85 Hgb 15.2 H Hct 48.8 H MCV 100.6 H MCH 31.3 MCHC 31.1 L RDW Std Deviation 53.2 H RDW Coeff of Niranjan 14.3 Plt Count 282 MPV 9.8 Immature Gran % (Auto) 0.500 Neut % (Auto) 93.4 H Lymph % (Auto) 3.3 L [place] % (Auto) 2.0 Eos % (Auto) 0.3 Baso % (Auto) 0.5 Absolute Neuts (auto) 13.9 H Absolute Lymphs (auto) 0.49 L Nucleated RBC % 0 PT 12.7 INR 1.0 APTT 29.9 Sodium 138 Potassium 4.4 Chloride 93 L Carbon Dioxide 42.0 H Anion Gap 3 L BUN 38 H Creatinine 1.24 H Estim Creat Clear Calc 25.18 Est GFR (MDRD) Af Amer 53 L Est GFR (MDRD) Non-Af 43 L BUN/Creatinine Ratio 30.6 H Glucose 141 H Calcium 9.6 Total Bilirubin 0.60 AST 33 ALT 36 Alkaline Phosphatase 60 Troponin I High Sens 91 H B-Natriuretic Peptide Total Protein 7.6 Albumin 3.6 Globulin 4.0 Albumin/Globulin Ratio 0.9 09/19/22 14:30 WBC RBC Hgb Hct MCV MCH MCHC RDW Std Deviation RDW Coeff of Niranjan Plt Count MPV Immature Gran % (Auto) Neut % (Auto) Lymph % (Auto) [place] % (Auto) Eos % (Auto) Baso % (Auto) Absolute Neuts (auto) Absolute Lymphs (auto) Nucleated RBC % PT INR APTT Sodium Potassium Chloride Carbon Dioxide Anion Gap BUN Creatinine Estim Creat Clear Calc Est GFR (MDRD) Af Amer Est GFR (MDRD) Non-Af BUN/Creatinine Ratio Glucose Calcium Total Bilirubin AST ALT Alkaline Phosphatase Troponin I High Sens B-Natriuretic Peptide 125.2 H Total Protein Albumin Globulin Albumin/Globulin Ratio Radiography Diagnostic Testing: Clinical Impression(s) from Imaging Studies Chest X-Ray 09/19/22 14:45 IMPRESSION: Mild increased markings at the left lung base suggestive of scarring. Hyperinflation. Electronically Signed: Edward Nicole MD at 15:08 EST Reading Location ID and State: [facility] / [place] , Service support , EKG Initial EKG: Attestation: I personally reviewed and interpreted this EKG as follows: Comments: Atrial fibrillation noted right bundle branch block left anterior fascicular block. Discharge Plan Dx/Rx/DC Orders Clinical Impression: Acute on chronic diastolic (congestive) heart failure, Chronic respiratory failure with hypoxia, Atrial fibrillation Disposition Disposition: Acute Care [facility]
--- NOTE | 2022-09-19 14:45 | RAD_ITS ---
STUDY: X-RAY CHEST REASON FOR EXAM: Female, 86 years old. CHF TECHNIQUE: Single AP portable view of the chest. COMPARISON: Comparison is made with prior examination dated 08/19/2021. FINDINGS: EKG electrodes are seen. Hyperinflation. Mild increased markings at the left lung base suggestive of scarring. There is no demonstrated pleural abnormality. There is mild cardiac enlargement. Normal mediastinum and ricardo. Normal visualized pulmonary arteries. There is atherosclerotic calcification of the aortic arch with tortuosity. Normal visualized thoracic spine. There is degenerative osteoarthritis of the bilateral shoulders. Covered stent is seen in the abdominal aorta. RAD/Chest 1 View (Portable) IMPRESSION: Mild increased markings at the left lung base suggestive of scarring. Hyperinflation. Electronically Signed: Edward Nicole MD at 15:08 EST ,
[2022-09-19 14:47] LABS: Absolute Lymphocyte Count 0.49 X10^3/uL (0.83-4.51); Absolute Neutrophil Count 13.9 X10^3/uL (2.0-7.7); Basophil# 0.08 X10^3/uL; Basophil% 0.5 % (0-1); Eosinophil# 0.05 X10^3/uL; Eosinophils% 0.3 % (0-5); Hematocrit 48.8 % (37-47); Hemoglobin 15.2 g/dL (12.0-15.0); Lymphocyte # 0.49 X10^3/ul (0.83-4.51); Lymphocyte % 3.3 % (19-41); Mean Corp Hgb Conc 31.1 g/dL (32-36); Mean Corpuscular Hgb 31.3 pg (27.0-32.0); Mean Corpuscular Volume 100.6 fL (81-99); Mean Platelet Vol. 9.8 fl (6.2-12.0); NRBC Flagged by Analyzer 0 % (0-5); Neutrophil # 13.89 X10^3/uL (2.7-7.7); Neutrophil % 93.4 % (47-70); POSITIVE DIFFERENTIAL YES; Platelet Count 282 K/mm3 (150-450); RBC Distribution Width CV 14.3 % (11.6-14.6); RBC Distribution Width SD 53.2 fl (35.1-43.9); Red Blood Count 4.85 M/mm3 (4.2-5.4); White Blood Count 14.9 K/mm3 (4.4-11.0)
[2022-09-19 14:50] LABS: Differential Indicated SCAN CRITERIA MET
[2022-09-19 15:07] LABS: Prothrombin Time (Protime)PT. 12.7 SECONDS (11.7-14.9)
[2022-09-19 15:08] LABS: BNP,B-Type NATRIURETIC PEPTIDE 125.2 pg/mL (0-100); Partial Thromboplast Time 29.9 Seconds (24.1-36.2)
[2022-09-19 15:12] LABS: ALB/GLOB Ratio 0.9 RATIO (0.9-2.4); AST(SGOT) 33 U/L (15-37); Alanine Aminotransfer ALT/SGPT 36 U/L (13-56); Albumin, Serum 3.6 g/dL (3.2-5.0); Alkaline Phosphatase 60 U/L (45-117); Anion Gap 3 (5-15); BUN 38 mg/dL (7-18); BUN/Creat Ratio 30.6 RATIO (10-20); Calcium,Total 9.6 mg/dL (8.5-10.1); Chloride 93 mmol/L (98-107); Creatinine, Serum 1.24 mg/dL (0.55-1.02); EST Glomerular Filtration Rate 43 mL/min (>60); Est Glom Filt Rate - Afr Amer 53 mL/min (>60); Estimated Creatinine Clearance 25.18 ml/min; Glucose 141 mg/dL (74-106); Potassium 4.4 mmol/L (3.5-5.1); Protein, Total 7.6 g/dL (6.4-8.2); Sodium Level 138 mmol/L (136-145); Troponin-I HS 91 pg/mL (3.0-54.0)
--- NOTE | 2022-09-19 15:39 | HP.PCM.HOS_ITS ---
HPI - General General Date of Admission: 09/19/22 Date of Service: 09/19/22 Chief Complaint: Shortness of breath ongoing for about 5 days HPI Narrative ADRIA PETERSEN, is a 86 F who presents with the above. Patient has past medical history of not in acute exacerbation, will continue with prn breathing treatments, continue on oxygen obesity, probable sleep apnea, chronic diastolic CHF, rheumatoid arthritis who was referred from the pulmonology office with progressive shortness of breath. Patient had gone to see the improvement coordinator for shortness of breath. She was felt to be in acute CHF and [facility] Patient was seen in the emergency room with her daughter. She admits to gaining about 18 pounds within the past 1 week. She denied any chest pain but admits to orthopnea and PND and some dizziness. She sleeps in a bed that has an elevated headrest. Patient has been progressively weak. Denies any fever or chills or nausea or vomiting. Patient was recently admitted in [facility] on 09/06/2022 for acute CHF exacerbation and discharged 09/10/2022 on 2 L of oxygen. In the emergency room, her blood pressure is 123/58, heart rate 87, respiratory 22, temperature 97.0 F, saturating 97% on 2 L of oxygen. Her WBC was 14.9, hemoglobin 15.2, platelet 282. BMP was unremarkable except for bicarb of 42, BUN 38, creatinine 1.24. Troponin was 91 and 75. BNpep 125.2. Admitting chest x-ray showed mild increased markings left lung base suggestive of scarring, hyperinflation. [employer] Medical History Chronic cough Chronic respiratory failure with hypoxia Diastolic CHF, acute on chronic Dilation of esophagus Esophageal dysphagia Former smoker GERD (gastroesophageal reflux disease) Glaucoma Hiatal hernia History of deviated nasal septum History of diverticulitis History of femur fracture History of rectocele Hypothyroidism Low iron Macular degeneration Restless legs Rheumatoid arthritis Smoker within last 12 months Home Medications ipratropium bromide 42 mcg (0.06 %) nasal spray 2 sprays DAILY nasal drainage 10/08/17 [History Last Taken 09/19/22] latanoprost 0.005 % eye drops 1 drp QHS glaucoma 10/08/17 [History Last Taken 09/18/22] Premarin 1 applic 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 01/23/19 [History Last Taken Unknown] adalimumab 40 mg/0.8 mL subcutaneous syringe kit (Humira) 40 mg SQ Q14D RA 01/23/19 [History Last Taken 09/17/22] calcium carbonate 500 mg calcium (1,250 mg) chewable tablet 500 mg PO DAILY supplement 01/23/19 [History Last Taken 09/18/22] folic acid 1 mg tablet 2 tab PO DAILY supplement 01/23/19 [History Last Taken 09/18/22] cholecalciferol (vitamin D3) 25 mcg (1,000 unit) tablet 400 unit PO DAILY supplement 08/12/19 [History Last Taken 09/18/22] PreserVision AREDS-2 2 cap PO/SL DAILY eyes 08/19/21 [History Last Taken 09/18/22] brimonidine 0.2 % eye drops 1 drp EACH EYE BID eye 08/19/21 [History Last Taken 09/19/22] levothyroxine 25 mcg capsule 25 mcg PO DAILY thyroid 08/19/21 [History Last Taken 09/19/22] ropinirole 0.25 mg tablet 0.25 mg PO DAILY legs 08/19/21 [History Last Taken 09/18/22] ondansetron 8 mg disintegrating tablet 8 mg PO Q8H PRN nausea and vomiting #30 tabs 02/19/22 [Rx Last Taken Unknown] apixaban 2.5 mg tablet (Eliquis) 2.5 mg PO BID blood thinner 09/19/22 [History Last Taken 09/18/22] bumetanide 0.5 mg tablet 0.5 mg PO DAILY diuretic 09/19/22 [History Last Taken 09/19/22] docusate sodium 100 mg capsule (Colace) 100 mg PO Q OTHER DAY constipation 09/19/22 [History Last Taken Unknown] ferrous sulfate 142 mg (45 mg iron) tablet,extended release (Slow Release Iron) 142 mg PO DAILY supplement 09/19/22 [History Last Taken 09/18/22] losartan 25 mg tablet 25 mg PO DAILY bp 09/19/22 [History Last Taken 09/18/22] pantoprazole 40 mg tablet,delayed release (Protonix) 40 mg PO DAILY gerd 09/19/22 [History Last Taken 09/18/22] prednisolone sodium phosphate 15 mg disintegrating tablet 15 mg PO DAILY lungs 09/19/22 [History Last Taken 09/19/22] spironolactone 25 mg tablet 25 mg PO DAILY bp 09/19/22 [History Last Taken 09/18/22] Allergy/AdvReac Type Severity Reaction Status Date / Time metronidazole [From Flagyl] Allergy Hives Verified 09/19/22 14:05 acetaminophen AdvReac Nausea/Vom/ Verified 09/19/22 14:05 [From Darvocet-N] Diarrhea codeine AdvReac Vomiting Verified 09/19/22 14:05 hydrocodone [From Vicodin] AdvReac Vomiting Verified 09/19/22 14:05 naproxen [From Aleve] AdvReac Nausea/Vom/ Verified 09/19/22 14:05 Diarrhea oxycodone [From Percocet] AdvReac Nausea/Vom/ Verified 09/19/22 14:05 Diarrhea propoxyphene AdvReac Nausea/Vom/ Verified 09/19/22 14:05 [From Darvocet-N] Diarrhea Family History Mother Dementia Father Heart disease Other Diabetes HLD (hyperlipidemia) Surgical History History of abdominal aortic aneurysm (AAA) repair History of appendectomy History of carpal tunnel release of both wrists History of colonoscopy History of dental surgery History of hysterectomy History of knee surgery History of left knee replacement History of reconstructive repair of rectocele Social History household members: none Smoking Status: Former smoker alcohol intake: never substance use type: does not use ROS ROS Narrative Constitutional: Reports: Malaise, Weakness, Fatigue. Denies: Anorexia, Chills, Fever, Night Sweats, Weight Change Eyes: Denies: Blurred vision, Cataracts, Conjunctivae Inflammation, Pain, Redness, Vision Change HEENT: Denies: Difficulty Hearing, Difficulty Swallowing, Head Aches, Hearing Changes, Sinus Congestion, Sinus Drainage Cardiovascular: See HPI Respiratory: Denies: Cough, Shortness of breath at rest, Sputum production Gastrointestinal: Denies: Abdominal Pain, Nausea, Vomiting Genitourinary: Denies: Dysuria Musculoskeletal: Denies: Joint Pain, Joint stiffness, Joint swelling, Joint Tenderness Skin: Denies: Rash, Wounds Neurological: Denies: Numbness, Tingling, Focal weakness Vital Signs Vital Signs Vital Signs: 09/19/22 14:02 09/19/22 14:34 09/19/22 14:35 Temperature 97.0 F L Temperature Source Temporal Pulse Rate 87 Respiratory Rate 22 H Respiratory Effort Short of Breath Labored Nasal Flaring Respiratory Pattern Tachypnea Blood Pressure 123/58 H Blood Pressure Mean 79 Pulse Ox 97 94 Oxygen Delivery Method Nasal Cannula Nasal Cannula Nasal Cannula Oxygen Flow Rate (L/min) 2 2 2 09/19/22 15:14 Temperature Temperature Source Pulse Rate 80 Respiratory Rate 26 H Respiratory Effort Respiratory Pattern Blood Pressure 138/74 H Blood Pressure Mean 95 Pulse Ox 94 Oxygen Delivery Method Nasal Cannula Oxygen Flow Rate (L/min) 2 Weight Weight: 49.895 kg Body Mass Index (BMI) 20.1 Physical Exam Narrative Physical exam: General: Alert, Oriented x3, Cooperative, on 2 L of oxygen HEENT: Atraumatic Oral: Moist Mucosa Neck: Supple Lungs: Diminished to auscultation, coarse crackles at the lung bases Cardiovascular: HS I+II, regular, no murmurs Abdomen: Bowel Sounds Present, Soft, Non Tender Extremities: Bilateral pedal edema +2 Skin: No rashes, No breakdown Neurological: Grossly intact Psych/Mental Status: Appropriate Results Lab / Micro Data Result Diagrams: 09/19/22 14:30 09/19/22 14:30 Labs: Laboratory Results - last 24 hr 09/19/22 14:30: WBC 14.9 H, RBC 4.85, Hgb 15.2 H, Hct 48.8 H, MCV 100.6 H, MCH 31.3, MCHC 31.1 L, RDW Std Deviation 53.2 H, RDW Coeff of Niranjan 14.3, Plt Count 282, MPV 9.8, Immature Gran % (Auto) 0.500, Neut % (Auto) 93.4 H, Lymph % (Auto) 3.3 L, Mcdowell % (Auto) 2.0, Eos % (Auto) 0.3, Baso % (Auto) 0.5, Absolute Neuts (auto) 13.9 H, Absolute Lymphs (auto) 0.49 L, Nucleated RBC % 0 09/19/22 14:30: PT 12.7, INR 1.0, APTT 29.9 09/19/22 14:30: Sodium 138, Potassium 4.4, Chloride 93 L, Carbon Dioxide 42.0 H, Anion Gap 3 L, BUN 38 H, Creatinine 1.24 H, Estim Creat Clear Calc 25.18, Est GFR (MDRD) Af Amer 53 L, Est GFR (MDRD) Non-Af 43 L, BUN/Creatinine Ratio 30.6 H , Glucose 141 H, Calcium 9.6, Total Bilirubin 0.60, AST 33, ALT 36, Alkaline Phosphatase 60, Troponin I High Sens 91 H, Total Protein 7.6, Albumin 3.6, Globulin 4.0, Albumin/Globulin Ratio 0.9 09/19/22 14:30: B-Natriuretic Peptide 125.2 H Radiology Impression Chest X-Ray 09/19/22 14:45 IMPRESSION: Mild increased markings at the left lung base suggestive of scarring. Hyperinflation. Electronically Signed: Edward Nicole MD at 15:08 EST , Assessment & Plan Assessment/Plan (1) Acute on chronic diastolic (congestive) heart failure: PLAN: Plan 1. Acute hypoxia secondary to acute on chronic diastolic CHF exacerbation, unknown EF?no echo in our system failed outpatient treatment Patient clinically appears overloaded; she has been on 2 L of oxygen since September 10 Recent admission to [facility] for acute CHF exacerbation Will admit to PCU, IV Lasix 40 mg twice daily, CHF protocol 2D-ECHO, trend troponins 2. Chronic atrial fibrillation, rate controlled/hypertension, continue metoprolol, losartan, spironolactone and apixaban 3. Esophageal dysphagia/GERD/hiatal hernia status post EGD on 06/18/2022 that showed moderate scant hearing, reflux esophagitis, medium size hiatal hernia Continue on PPI 4. Hypothyroidism, continue Synthroid 5. DVT prophylaxis?heparin subcu I discussed and explained in details the various types of CODE STATUS-full code, DNR CCA, DNR CC. Patient chose to be DNR-CCA, no intubation Time spent discussing CODE STATUS 18 minutes Charges/Coding Visit Charges Inpatient E&M: 19183 Init Hosp L3 Procedures Hospitalists Procedures: 40149 Advncd Care Plan 30 Min
[2022-09-19] MEDS: Aspirin 325 MG Tablet PO (16:06)
[2022-09-19] MEDS: Bumetanide 1 MG/4 ML Vial 2 MG IV (16:06)
[2022-09-19 18:40] LABS: Troponin-I HS 75 pg/mL (3.0-54.0)
[2022-09-19] MEDS: Ipratropium/Albuterol Sulfate 3 ML AMPUL.NEB INHALATION ×2 (18:45→23:00)
--- NOTE | 2022-09-19 19:39 | ECHOD_ITS ---
Reason For Study: DYSPNEA Procedure This was a 2D Doppler, Color Flow transthoracic echocardiogram. Exam performed portable in patient room. Left Ventricle Normal LV size. The estimated ejection fraction is 65 %. Diastolic function is indeterminate. No regional wall motion abnormalities noted. Right Ventricle Normal RV size. Normal systolic function. Atria The left atrium is moderately enlarged. The right atrium is moderately enlarged. No doppler evidence for ASD. Mitral Valve There is no mitral valve stenosis. Trivial mitral valve insufficiency. Tricuspid Valve There is no tricuspid stenosis. Trivial tricuspid valve insufficiency. Pulmonary artery systolic pressure is 40-45 mmHg. Aortic Valve There is no aortic stenosis. Mild (1+) aortic valve insufficiency. Pulmonic Valve There is no pulmonic valvular stenosis. No pulmonic valve insufficiency. Great Vessels Normal aortic root. Pericardium/Pleural No pericardial effusion. MMode/2D Measurements & Calculations LVIDd: 3.0 cm IVSd: 1.3 cm LAV(MOD-sp2): 87.1 ml LVIDs: 2.0 cm LVPWd: 1.8 cm RVDd: 2.4 cm FS: 35.1 % LVAd ap4: 13.8 cm2 SV(MOD-sp4): 0.12 ml SV(sp4-el): -1.8 ml LVLd ap4: 5.0 cm EDV(MOD-sp4): 32.8 ml EDV(sp4-el): 32.1 ml LVAs ap4: 14.2 cm2 LVLs ap4: 5.3 cm ESV(MOD-sp4): 32.7 ml ESV(sp4-el): 33.9 ml EF(MOD-sp4): 0.36 % EF(sp4-el): -5.5 % LA A4 area: 20.1 cm2 RA A4 area: 14.2 cm2 Doppler Measurements & Calculations MV E max berny: 103.0 cm/sec MV V2 max: 111.4 cm/sec Ao V2 max: 115.9 cm/sec MV max P.0 mmHg Ao max P.4 mmHg MV V2 mean: 71.0 cm/sec Ao V2 mean: 74.2 cm/sec MV mean P.3 mmHg Ao mean P.6 mmHg MV V2 VTI: 20.2 cm Ao V2 VTI: 18.2 cm AV (velocity ratio): 0.71 AI max berny: 384.6 cm/sec LV V1 max: 78.6 cm/sec MR max berny: 475.2 cm/sec AI max P.2 mmHg LV V1 max P.5 mmHg MR max P.3 mmHg AI dec slope: 183.4 cm/sec2 LV V1 mean P.2 mmHg AI P1/2t: 614.4 msec LV V1 mean: 49.3 cm/sec LV V1 VTI: 13.0 cm TR max berny: 306.3 cm/sec TR max P.5 mmHg ECHO/Echo Complete Interpretation Summary The estimated ejection fraction is 65 %. Diastolic function is indeterminate. The left atrium is moderately enlarged. The right atrium is moderately enlarged. Trivial mitral valve insufficiency. Mild (1+) aortic valve insufficiency. Ordering Physician: Leonie Mendoza Performed By: Earlene Mercer RCS
[2022-09-19 21:10] LABS: Troponin-I HS 82 pg/mL (3.0-54.0)
[2022-09-19] MEDS: BRIMONIDINE 0.2% 5ML BOTTLE 1 DRP EACH EYE (21:13)
[2022-09-19] MEDS: Pramipexole Di-HCl 0.125 MG Tablet PO (21:15)
[2022-09-19] MEDS: 0.9% Saline Lock 10 ML Syringe IV (21:15)
[2022-09-19] MEDS: Acetaminophen 325 MG Tablet 650 MG PO (21:16)
[2022-09-19] MEDS: Latanoprost 0.005% 1 Bottle 1 DRP OPHTHALMIC (21:20)
[2022-09-19] MEDS: Heparin Injection (Vial) 5,000 UNIT/ML VIAL 5000 UNIT SC (21:27)
[2022-09-19] MEDS: MELATONIN 3 MG TABLET PO (23:35)
[2022-09-20] VITALS (16 sets, daily range): BP systolic 115–139; BP diastolic 57–83; PULSE 76–106; RESP 16–28; TEMP 35.9–36.7; O2SAT 79–98
[2022-09-20] MEDS: Heparin Injection (Vial) 5,000 UNIT/ML VIAL 5000 UNIT SC (05:54)
[2022-09-20] MEDS: Levothyroxine 25 MCG TABLET PO (05:54)
[2022-09-20 07:13] LABS: Absolute Lymphocyte Count 2.38 X10^3/uL (0.83-4.51); Absolute Neutrophil Count 6.4 X10^3/uL (2.0-7.7); Eosinophil# 0.51 X10^3/uL; Eosinophils% 4.9 % (0-5); Hematocrit 43.9 % (37-47); Hemoglobin 13.9 g/dL (12.0-15.0); Lymphocyte # 2.38 X10^3/ul (0.83-4.51); Mean Corp Hgb Conc 31.7 g/dL (32-36); Mean Corpuscular Hgb 31.2 pg (27.0-32.0); Mean Corpuscular Volume 98.4 fL (81-99); Monocyte# 0.92 X10^3/uL; Monocyte% 8.9 % (0-10); NRBC Flagged by Analyzer 0 % (0-5); Neutrophil # 6.36 X10^3/uL (2.7-7.7); Neutrophil % 61.5 % (47-70); Platelet Count 254 K/mm3 (150-450); RBC Distribution Width CV 14.2 % (11.6-14.6); RBC Distribution Width SD 51.6 fl (35.1-43.9); Red Blood Count 4.46 M/mm3 (4.2-5.4); White Blood Count 10.3 K/mm3 (4.4-11.0)
[2022-09-20] MEDS: Ipratropium/Albuterol Sulfate 3 ML AMPUL.NEB INHALATION ×5 (07:44→23:08)
[2022-09-20 07:54] LABS: ALB/GLOB Ratio 0.8 RATIO (0.9-2.4); AST(SGOT) 30 U/L (15-37); Alanine Aminotransfer ALT/SGPT 29 U/L (13-56); Albumin, Serum 2.8 g/dL (3.2-5.0); Alkaline Phosphatase 46 U/L (45-117); Anion Gap 3 (5-15); BUN 43 mg/dL (7-18); BUN/Creat Ratio 36.8 RATIO (10-20); Chloride 93 mmol/L (98-107); Creatinine, Serum 1.17 mg/dL (0.55-1.02); EST Glomerular Filtration Rate 46 mL/min (>60); Est Glom Filt Rate - Afr Amer 56 mL/min (>60); Estimated Creatinine Clearance 25.88 ml/min; Globulin 3.3 g/dL (2.2-4.2); Glucose 84 mg/dL (74-106); Potassium 3.8 mmol/L (3.5-5.1); Protein, Total 6.1 g/dL (6.4-8.2); Sodium Level 136 mmol/L (136-145)
[2022-09-20] MEDS: BRIMONIDINE 0.2% 5ML BOTTLE 1 DRP EACH EYE ×2 (09:54→20:30)
[2022-09-20] MEDS: Ipratropium Bromide 0.06% NASAL SPRAY 2 SPRAY NASAL (09:54)
[2022-09-20] MEDS: Folic Acid 1 MG Tablet 2 MG PO (09:55)
[2022-09-20] MEDS: Pantoprazole Sodium 40 MG Tablet PO (09:55)
[2022-09-20] MEDS: Polyethylene Glycol 3350 17 GM PACKET PO (09:55)
[2022-09-20] MEDS: Multivitamin (Healthy Eyes) Capsule 1 CAP PO ×2 (09:56→17:18)
[2022-09-20] MEDS: Losartan Potassium 25 MG Tablet PO (09:56)
[2022-09-20] MEDS: Ferrous Sulfate 325 MG Tablet PO (09:56)
[2022-09-20] MEDS: Docusate Sodium 100 MG Capsule PO (09:56)
[2022-09-20] MEDS: Calcium (Elemental) 500 MG Tablet PO (09:58)
[2022-09-20] MEDS: Spironolactone 25 MG Tablet PO (09:58)
[2022-09-20] MEDS: APIXABAN 2.5 MG TABLET (WCH) PO ×2 (10:04→20:32)
[2022-09-20] MEDS: Furosemide 40 MG/4 ML Vial IV ×2 (10:04→17:21)
--- NOTE | 2022-09-20 10:20 | CASEMGMT ---
SHIRLEY GAVIN Assessment: Face to Face with pt for initial transition planning/care coordination assessment. SHIRLEY GAVIN introduced self and role at [facility], pt voices understanding and consents to assessment. Pt is A/O x4 and answers all questions appropriately at this time. Pt with dtr present at bedside and agreeable to complete assessment with her in room. Care providers, pharmacy, and demographics verified/updated. Admitting Dx: acute COPD exac PCP:Junie Lui RECEIVING CLERK Specialists:liliana Anguiano; Reese, cardio RECEIVING CLERK; Alexander pulm; Marvin, shady Preferred Pharmacy: [facility] Insurance: [employer], [employer] Prescription Benefit: yes LNOK: Bernice Mooney, alayna; carmen Zapata Living Arrangements: Pt lives alone in a single story house [facility] no steps to enter. Pt reports she has lately needed help with ADL's and dtr assists. Pt does her own laundry. Dtr does all cooking. Pt denies concerns at home. Transportation: Pt dtr transports her to medical appts. DME/HHC/SNF: Pt has oxygen through [facility]. She states it is 2L cont. She has portable tanks and dtr will bring in upon dc. Pt also has a pox at home. Pt has a rollator, w/c and grab bars in her bathroom. Pt has had HHC in the past but did not like it and does not want them again. She is unsure of the name of the agency. Pt denies SNF stays. Pt states no concerns with going home at time of dc. Pt has a room at [facility] that she is available on 09/30 to move into. Pt has signed with [facility] with the first nursing appt to be on Thursday. Dtr will cancel if pt is still hospitalized. Pt is not interested in working with therapy here. Pt dtr enc pt to do therapy after hospitalization, pt is unsure if she wants to. Will provide a outpt therapy script in case pt wants to. Discussed options of where to complete this at. Green sheet on chart for this. Pt did not need increase in oxygen rx when tested today. Pt states no further concerns/needs. CM to follow. Advised pt to ask CM if any further question/concerns/needs arise, voices understanding. Pt Goal: Home with possible outpt therapy Plan: Home with possible outpt therapy
--- NOTE | 2022-09-20 10:46 | CASEMGMT ---
Social Work SW met w/pt to offer support. Pt states has been in three different hospitals recently, but is managing okay. She reports to be feeling better at present. SW explained remains available for support as needed. Pt states understanding. KYRA Donahue
--- NOTE | 2022-09-20 14:16 | PN.HOSP_ITS ---
Subjective Subjective States she is feeling better today. Less shortness of breath overall but still gets winded more with exertion. Agreeable to repeat echocardiogram with most recent one being on 2020. Patient reports she is never had any cardiac work-up previously including a stress test or catheterization. Does not follow regularly with cardiology. Objective Data Objective Data Vital Signs: Vital Signs Temp Pulse Resp BP Pulse Ox O2 Del Method O2 Flow Rate 98.0 F 106 H 18 139/83 H 79 Room Air 2 09/20/22 09:51 09/20/22 11:08 09/20/22 11:08 09/20/22 09:51 09/20/22 11:08 09/20/22 11:08 09/20/22 11:05 FiO2 98 09/20/22 07:55 Oxygen Flow Rate (L/min) 2 Oxygen Delivery Method Room Air Weight: 48.4 kg Body Mass Index (BMI) 19.4 Intake & Output: Intake and Output for Last 24 Hours 09/18/22 09/19/22 09/20/22 23:59 23:59 23:59 Intake Total 200 / 200 520 / 520 Output Total 150 / 450 600 / 600 Balance 50 / -250 -80 / -80 Lab / Micro Data Result Diagrams: 09/20/22 06:37 09/20/22 06:37 Labs: Laboratory Results - last 24 hr 09/19/22 14:30: WBC 14.9 H, RBC 4.85, Hgb 15.2 H, Hct 48.8 H, MCV 100.6 H, MCH 31.3, MCHC 31.1 L, RDW Std Deviation 53.2 H, RDW Coeff of Niranjan 14.3, Plt Count 282, MPV 9.8, Immature Gran % (Auto) 0.500, Neut % (Auto) 93.4 H, Lymph % (Auto) 3.3 L, [place] % (Auto) 2.0, Eos % (Auto) 0.3, Baso % (Auto) 0.5, Absolute Neuts (auto) 13.9 H, Absolute Lymphs (auto) 0.49 L, Nucleated RBC % 0 09/19/22 14:30: PT 12.7, INR 1.0, APTT 29.9 09/19/22 14:30: Sodium 138, Potassium 4.4, Chloride 93 L, Carbon Dioxide 42.0 H, Anion Gap 3 L, BUN 38 H, Creatinine 1.24 H, Estim Creat Clear Calc 25.18, Est GFR (MDRD) Af Amer 53 L, Est GFR (MDRD) Non-Af 43 L, BUN/Creatinine Ratio 30.6 H , Glucose 141 H, Calcium 9.6, Total Bilirubin 0.60, AST 33, ALT 36, Alkaline Phosphatase 60, Troponin I High Sens 91 H, Total Protein 7.6, Albumin 3.6, Globulin 4.0, Albumin/Globulin Ratio 0.9 09/19/22 14:30: B-Natriuretic Peptide 125.2 H 09/19/22 17:50: Troponin I High Sens 75 H 09/19/22 20:22: Troponin I High Sens 82 H 09/20/22 06:37: WBC 10.3, RBC 4.46, Hgb 13.9, Hct 43.9, MCV 98.4, MCH 31.2, MCHC 31.7 L, RDW Std Deviation 51.6 H, RDW Coeff of Niranjan 14.2, Plt Count 254, MPV 10.0, Immature Gran % (Auto) 0.700, Neut % (Auto) 61.5, Lymph % (Auto) 23.0, [place] % (Auto) 8.9, Eos % (Auto) 4.9, Baso % (Auto) 1.0, Absolute Neuts (auto) 6.4, Absolute Lymphs (auto) 2.38, Nucleated RBC % 0 09/20/22 06:37: Sodium 136, Potassium 3.8, Chloride 93 L, Carbon Dioxide 40.0 H, Anion Gap 3 L, BUN 43 H, Creatinine 1.17 H, Estim Creat Clear Calc 25.88, Est GFR (MDRD) Af Amer 56 L, Est GFR (MDRD) Non-Af 46 L, BUN/Creatinine Ratio 36.8 H , Glucose 84, Calcium 9.0, Total Bilirubin 0.50, AST 30, ALT 29, Alkaline Phosphatase 46, Total Protein 6.1 L, Albumin 2.8 L, Globulin 3.3, Albumin/Globulin Ratio 0.8 L Micro: Microbiology 09/19/22 22:55 Mucosa - Nasopharyngeal Respiratory Panel (PCR) - Final 09/19/22 21:08 Nasal Secretion SARS-CoV-2 Antigen (Rapid) - Final Radiography Diagnostic Testing: Radiology Impression Chest X-Ray 09/19/22 14:45 IMPRESSION: Mild increased markings at the left lung base suggestive of scarring. Hyperinflation. Electronically Signed: Edward Nicole MD at 15:08 EST , Echocardiogram 09/19/22 19:39 Interpretation Summary The estimated ejection fraction is 65 %. Diastolic function is indeterminate. The left atrium is moderately enlarged. The right atrium is moderately enlarged. Trivial mitral valve insufficiency. Mild (1+) aortic valve insufficiency. Ordering Physician: Leonie Mendoza Performed By: Earlene Mercer RCS Physical Exam Const alert, oriented x3 and no apparent distress Constitutional Narrative: Thin, elderly, white female, sitting up in bed, appears younger than stated age, nontoxic, very pleasant HEENT head/scalp atraumatic and oropharynx normal HEENT Narrative: Mallampati 2, no thrush, oropharynx is dry Mouth: dry mucous membranes Resp normal respiratory effort, no retractions, no use of accessory muscles and clear to auscultation bilaterally Resp Narrative: Clear at this time Auscultation: Negative for crackles, rhonchi or wheezes Cardio regular rate, regular rhythm, S1 normal heart sound, S2 normal heart sound, no murmurs, no rub, no gallops and no clicks GI normal to inspection, nondistended, normoactive bowel sounds, soft to palpation and non-tender Extremity Extremity Narrative: Trace to 1+ bilateral lower extremity pitting edema, no cyanosis or clubbing Neuro oriented x3, CN's II-XII intact bilaterally, moves all extremities and no focal motor deficits Sensorium / Orientation: awake, alert, oriented to person, oriented to place and oriented to time Speech: speech normal Psych affect normal Assessment & Plan Assessment/Plan (1) Hypoxia: (2) Shortness of breath: (3) Elevated troponin: PLAN: Plan Hypoxia and shortness of breath -Patient does not develop hypertension, tachypnea, or other signs of respiratory failure with her hypoxia -Assessed on room air today and sats were 79% but improved to 94% with 2 L nasal cannula -Recent hospitalization at [facility] and BNP at the time of admission there was 3258 however BNP at this admission was 125 -We will continue diuresis for now -Echocardiogram done and shows EF of 65% with indeterminate diastolic function and moderate biatrial enlargement, 1+ aortic valve insufficiency -I am not wholly convinced that this current episode of hypoxia is completely related to decompensated heart failure however her lower extremities remain denny atous -Was not oxygen dependent until her last hospitalization but does have extensive tobacco abuse history -No wheezing or adventitious lung sounds on exam today -Check CTA of the chest to look at lung parenchyma better and to rule out PE as I have seen PE despite apixaban therapy -COVID and flu as well as respiratory viral PCR negative -No overt signs of infection -May need to consider stress test depending on above results -Patient appears to have baseline serum bicarb elevation likely related to chronic hypercapnia -We will consider pulmonary involvement depending on above work-up HFpEF-currently appears overall compensated -BNP 125 on admission -Echo unchanged from previous -Not 100% commenced at this ongoing hypoxia and shortness of breath is related to decompensated heart failure -Further work-up in progress -We will continue diuresis for now as patient does have lower extremity edema Troponin elevation -Troponin on admission was 91 however repeat decreased to 75 then third troponin 82 -Repeat in a.m. -May be related to ongoing intermittent hypoxia -Check CTA of the chest -Echo was unremarkable with no signs of wall motion abnormality -Consider stress test depending on above results CKD stage IIIb -Serum creatinine is stable despite diuresis GERD/hiatal hernia/history of Schatzki's ring -Continue Protonix -GI follow-up as previously recommended Paroxysmal atrial fibrillation -Continue metoprolol -Continue apixaban Hypothyroidism -Continue home Synthroid Hypertension -Continue metoprolol/losartan/Aldactone History of rheumatoid arthritis -Continue home Humira DVT prophylaxis -Fully anticoagulated with apixaban CODE STATUS -DNR CCA no intubation Charges/Coding Visit Charges Inpatient E&M: 65815 Subs Hosp L2
--- NOTE | 2022-09-20 14:21 | CT_ITS ---
HISTORY: hypoxia. TECHNIQUE: CT angiogram of the chest was performed after the intravenous administration of 75 mL Isovue-370. Post-processing of the angiographic images was performed with multiplanar reformation and 3D reconstruction. Individualized dose optimization techniques were used for this CT. 1072 images. COMPARISON: XR prior day. FINDINGS: CENTRAL AIRWAYS: Patent. LUNGS: Mild emphysema and scarring. Mild lower lobe mucous plugging mild dependent lower lobe opacities. PLEURA: No pneumothorax or significant pleural effusion. HEART/PERICARDIUM: Cardiomegaly with coronary artery disease. No pericardial effusion. PULMONARY ARTERIES: No filling defect. Main pulmonary artery enlargement suggesting pulmonary hypertension. AORTA/VESSELS: Thoracic aorta nondilated. MEDIASTINUM/WAYNE: Scattered small lymph nodes. OSSEOUS STRUCTURES: Degenerative change. Chronic T8 and T12 compression fractures. UPPER ABDOMEN: Stent graft repair of the abdominal aorta.. CT/CTA Chest W/WO Contrast IMPRESSION: No evidence of pulmonary embolism. Mild atelectasis and mucous plugging in the lower lobes. Electronically Signed: Bonita Mendoza MD at 15:23 EST ,
[2022-09-20] MEDS: 0.9% Saline Lock 10 ML Syringe IV (17:21)
[2022-09-20] MEDS: guaiFENesin 1,200 MG Tablet 1200 MG PO (20:32)
[2022-09-20] MEDS: Pramipexole Di-HCl 0.125 MG Tablet PO (20:33)
[2022-09-20] MEDS: Latanoprost 0.005% 1 Bottle 1 DRP OPHTHALMIC (20:34)
[2022-09-20] MEDS: MELATONIN 3 MG TABLET PO (22:13)
[2022-09-21] VITALS (20 sets, daily range): BP systolic 115–144; BP diastolic 57–131; PULSE 68–104; RESP 12–41; TEMP 36.4–36.8; O2SAT 91–97
[2022-09-21] MEDS: LORazepam 0.5 MG Tablet PO (00:43)
[2022-09-21] MEDS: Levothyroxine 25 MCG TABLET PO (06:16)
[2022-09-21 06:19] LABS: Absolute Lymphocyte Count 2.03 X10^3/uL (0.83-4.51); Absolute Neutrophil Count 7.8 X10^3/uL (2.0-7.7); Basophil# 0.12 X10^3/uL; Eosinophil# 0.63 X10^3/uL; Eosinophils% 5.4 % (0-5); Hematocrit 44.2 % (37-47); Hemoglobin 13.8 g/dL (12.0-15.0); Lymphocyte # 2.03 X10^3/ul (0.83-4.51); Lymphocyte % 17.5 % (19-41); Mean Corp Hgb Conc 31.2 g/dL (32-36); Mean Corpuscular Hgb 30.9 pg (27.0-32.0); Mean Corpuscular Volume 99.1 fL (81-99); Mean Platelet Vol. 10.1 fl (6.2-12.0); Monocyte# 0.97 X10^3/uL; Monocyte% 8.3 % (0-10); NRBC Flagged by Analyzer 0 % (0-5); Neutrophil # 7.79 X10^3/uL (2.7-7.7); Neutrophil % 67.1 % (47-70); Platelet Count 261 K/mm3 (150-450); RBC Distribution Width CV 14.2 % (11.6-14.6); RBC Distribution Width SD 51.4 fl (35.1-43.9); Red Blood Count 4.46 M/mm3 (4.2-5.4); White Blood Count 11.6 K/mm3 (4.4-11.0)
[2022-09-21 07:06] LABS: Anion Gap 2 (5-15); BUN 45 mg/dL (7-18); BUN/Creat Ratio 31.9 RATIO (10-20); Calcium,Total 9.6 mg/dL (8.5-10.1); Chloride 93 mmol/L (98-107); Creatinine, Serum 1.41 mg/dL (0.55-1.02); EST Glomerular Filtration Rate 37 mL/min (>60); Est Glom Filt Rate - Afr Amer 45 mL/min (>60); Estimated Creatinine Clearance 21.57 ml/min; Glucose 112 mg/dL (74-106); Magnesium 2.7 mg/dL (1.6-2.6); Phosphorus 4.5 mg/dL (2.5-4.9); Potassium 3.7 mmol/L (3.5-5.1); Sodium Level 136 mmol/L (136-145)
[2022-09-21] MEDS: Ipratropium/Albuterol Sulfate 3 ML AMPUL.NEB INHALATION ×4 (07:54→19:37)
[2022-09-21] MEDS: BRIMONIDINE 0.2% 5ML BOTTLE 1 DRP EACH EYE ×2 (08:27→21:24)
[2022-09-21] MEDS: Ipratropium Bromide 0.06% NASAL SPRAY 2 SPRAY NASAL (08:27)
[2022-09-21] MEDS: Spironolactone 25 MG Tablet PO (08:28)
[2022-09-21] MEDS: Folic Acid 1 MG Tablet 2 MG PO (08:30)
[2022-09-21] MEDS: Losartan Potassium 25 MG Tablet PO (08:30)
[2022-09-21] MEDS: Multivitamin (Healthy Eyes) Capsule 1 CAP PO ×2 (08:30→21:25)
[2022-09-21] MEDS: Calcium (Elemental) 500 MG Tablet PO (08:30)
[2022-09-21] MEDS: Pantoprazole Sodium 40 MG Tablet PO (08:30)
[2022-09-21] MEDS: Ferrous Sulfate 325 MG Tablet PO (08:30)
[2022-09-21] MEDS: guaiFENesin 1,200 MG Tablet 1200 MG PO ×2 (08:30→21:27)
[2022-09-21] MEDS: APIXABAN 2.5 MG TABLET (WCH) PO ×2 (08:31→21:27)
--- NOTE | 2022-09-21 14:04 | PN.HOSP_ITS ---
Subjective Subjective Patient with significant anxiety over the night. Patient states she felt short of breath however was not hypoxic at all. Was given Ativan x1 dose and now fairly groggy this morning. States that overall she is feeling better however still tachypneic and requiring supplemental oxygen at 2 L with desaturations into the upper 70s on room air. Objective Data Objective Data Vital Signs: Vital Signs Temp Pulse Resp BP Pulse Ox O2 Del Method O2 Flow Rate 97.9 F 69 18 141/80 H 92 Nasal Cannula 2 09/21/22 08:23 09/21/22 11:42 09/21/22 11:42 09/21/22 08:23 09/21/22 08:23 09/21/22 13:41 09/21/22 13:41 FiO2 95 09/21/22 13:41 Oxygen Flow Rate (L/min) 2 Oxygen Delivery Method Nasal Cannula Weight: 48.6 kg Body Mass Index (BMI) 19.4 Intake & Output: Intake and Output for Last 24 Hours 09/19/22 09/20/22 09/21/22 23:59 23:59 23:59 Intake Total 200 / 200 970 / 970 400 / 400 Output Total 150 / 450 600 / 600 Balance 50 / -250 370 / 370 400 / 400 Lab / Micro Data Result Diagrams: 09/21/22 05:53 09/21/22 05:53 Labs: Laboratory Results - last 24 hr 09/21/22 05:53: WBC 11.6 H, RBC 4.46, Hgb 13.8, Hct 44.2, MCV 99.1 H, MCH 30.9, MCHC 31.2 L, RDW Std Deviation 51.4 H, RDW Coeff of Niranjan 14.2, Plt Count 261, MPV 10.1, Immature Gran % (Auto) 0.700, Neut % (Auto) 67.1, Lymph % (Auto) 17.5 L, [place] % (Auto) 8.3, Eos % (Auto) 5.4 H, Baso % (Auto) 1.0, Absolute Neuts (auto) 7.8 H, Absolute Lymphs (auto) 2.03, Nucleated RBC % 0 09/21/22 05:53: Sodium 136, Potassium 3.7, Chloride 93 L, Carbon Dioxide 41.0 H, Anion Gap 2 L, BUN 45 H, Creatinine 1.41 H, Estim Creat Clear Calc 21.57, Est GFR (MDRD) Af Amer 45 L, Est GFR (MDRD) Non-Af 37 L, BUN/Creatinine Ratio 31.9 H , Glucose 112 H, Calcium 9.6, Phosphorus 4.5, Magnesium 2.7 H, TSH 1.60 Micro: Microbiology 09/19/22 22:55 Mucosa - Nasopharyngeal Respiratory Panel (PCR) - Final 09/19/22 21:08 Nasal Secretion SARS-CoV-2 Antigen (Rapid) - Final Radiography Diagnostic Testing: Radiology Impression Chest CTA 09/20/22 14:21 IMPRESSION: No evidence of pulmonary embolism. Mild atelectasis and mucous plugging in the lower lobes. Electronically Signed: Bonita Mendoza MD at 15:23 EST , Physical Exam Const alert, oriented x3 and no apparent distress Constitutional Narrative: Thin, elderly, white female, lying in bed, somewhat groggy, appears younger than stated age, nontoxic, very pleasant HEENT head/scalp atraumatic and oropharynx normal HEENT Narrative: No thrush, Mallampati 2 Resp normal respiratory effort, no retractions and no use of accessory muscles Resp Narrative: Few fine scattered wheezes Auscultation: wheezes; Negative for crackles or rhonchi Cardio regular rate, regular rhythm, S1 normal heart sound, S2 normal heart sound, no murmurs, no rub, no gallops and no clicks GI normal to inspection, nondistended, normoactive bowel sounds, soft to palpation and non-tender Extremity Extremity Narrative: Trace bilateral lower extremity pitting edema, no cyanosis or clubbing Neuro oriented x3, moves all extremities and no focal motor deficits Speech: speech normal Psych affect normal Assessment & Plan Assessment/Plan (1) Hypoxia: (2) Shortness of breath: (3) Elevated troponin: PLAN: Plan Hypoxia and shortness of breath -Patient does not develop hypertension, tachypnea, or other signs of respiratory failure with her hypoxia -Assessed on room air today and sats were 79% but improved to 94% with 2 L nasal cannula -Recent hospitalization at [facility] and BNP at the time of admission there was 3258 however BNP at this admission was 125 -Discontinue Lasix -Echocardiogram done and shows EF of 65% with indeterminate diastolic function and moderate biatrial enlargement, 1+ aortic valve insufficiency, right ventricular systolic pressure of 40 to 45 mmHg -I am not wholly convinced that this current episode of hypoxia is completely related to decompensated heart failure however her lower extremities remain edematous -Was not oxygen dependent until her last hospitalization but does have extensive tobacco abuse history -Small scattered wheezes today -CTA of the chest showed no PE, mild emphysematous changes, mild right lower lobe mucous plugging with mild dependent scattered groundglass opacities, chronic T8 and T12 compression fractures, stable stent graft repair of the abdominal aorta -COVID and flu as well as respiratory viral PCR negative -No overt signs of infection -Start steroids 40 mg IV Q8 as patient did have eosinophilia peripherally -Patient appears to have baseline serum bicarb elevation likely related to chronic hypercapnia -Discussed case with pulmonary medicine today they agreed with the above work-up and if she remains no them with no improvement despite initiation of steroids today would recommend consult to pulmonary medicine for further work-up and may potentially need right-sided heart cath rule out primary pulmonary artery hypertension -Could be complicated by her history of rheumatoid disease HFpEF-currently appears overall compensated -BNP 125 on admission -Echo unchanged from previous -Not 100% commenced at this ongoing hypoxia and shortness of breath is related to decompensated heart failure -Further work-up in progress -Discontinue diuresis Troponin elevation -Troponin on admission was 91 however repeat decreased to 75 then third troponin 82 -May be related to ongoing intermittent hypoxia -CTA as above -Echo was unremarkable with no signs of wall motion abnormality -Consider stress test depending on above results CKD stage IIIb with mild elevation from baseline -Creatinine jumped up to 1.41 today -Baseline serum creatinine appears to be between 1.2 and 1.3 -Discontinue Lasix GERD/hiatal hernia/history of Schatzki's ring -Continue Protonix -GI follow-up as previously recommended Paroxysmal atrial fibrillation -Continue metoprolol -Continue apixaban Hypothyroidism -Continue home Synthroid Hypertension -Continue metoprolol/losartan/Aldactone History of rheumatoid arthritis -Continue home Humira DVT prophylaxis -Fully anticoagulated with apixaban CODE STATUS -DNR CCA no intubation Charges/Coding Visit Charges Inpatient E&M: 97960 Subs Hosp L2
[2022-09-21] MEDS: Ensure Plus High Protein 120 ML LIQUID PO ×2 (17:30→21:24)
[2022-09-21] MEDS: Latanoprost 0.005% 1 Bottle 1 DRP OPHTHALMIC (21:25)
[2022-09-21] MEDS: MELATONIN 3 MG TABLET PO (21:26)
[2022-09-21] MEDS: Pramipexole Di-HCl 0.125 MG Tablet PO (21:27)
[2022-09-22] VITALS (19 sets, daily range): BP systolic 115–146; BP diastolic 57–115; PULSE 85–100; RESP 18–32; TEMP 35.9–36.7; O2SAT 87–95
[2022-09-22] MEDS: Ipratropium/Albuterol Sulfate 3 ML AMPUL.NEB INHALATION ×4 (01:23→19:58)
[2022-09-22] MEDS: Levothyroxine 25 MCG TABLET PO (05:43)
[2022-09-22 06:54] LABS: Absolute Lymphocyte Count 0.65 X10^3/uL (0.83-4.51); Absolute Neutrophil Count 11.3 X10^3/uL (2.0-7.7); Basophil# 0.01 X10^3/uL; Basophil% 0.1 % (0-1); Hematocrit 43.8 % (37-47); Hemoglobin 13.7 g/dL (12.0-15.0); Lymphocyte # 0.65 X10^3/ul (0.83-4.51); Lymphocyte % 5.3 % (19-41); Mean Corp Hgb Conc 31.3 g/dL (32-36); Mean Corpuscular Hgb 30.9 pg (27.0-32.0); Mean Corpuscular Volume 98.6 fL (81-99); Mean Platelet Vol. 10.6 fl (6.2-12.0); Monocyte# 0.26 X10^3/uL; Monocyte% 2.1 % (0-10); NRBC Flagged by Analyzer 0 % (0-5); Neutrophil % 91.8 % (47-70); Platelet Count 270 K/mm3 (150-450); RBC Distribution Width CV 14.1 % (11.6-14.6); RBC Distribution Width SD 51.1 fl (35.1-43.9); Red Blood Count 4.44 M/mm3 (4.2-5.4); White Blood Count 12.3 K/mm3 (4.4-11.0)
[2022-09-22 07:13] LABS: Anion Gap 4 (5-15); BUN 45 mg/dL (7-18); BUN/Creat Ratio 32.8 RATIO (10-20); Chloride 92 mmol/L (98-107); Creatinine, Serum 1.37 mg/dL (0.55-1.02); EST Glomerular Filtration Rate 39 mL/min (>60); Est Glom Filt Rate - Afr Amer 47 mL/min (>60); Estimated Creatinine Clearance 21.88 ml/min; Glucose 172 mg/dL (74-106); Sodium Level 136 mmol/L (136-145)
[2022-09-22] MEDS: Pantoprazole Sodium 40 MG Tablet PO (09:06)
[2022-09-22] MEDS: Calcium (Elemental) 500 MG Tablet PO (09:06)
[2022-09-22] MEDS: Spironolactone 25 MG Tablet PO (09:06)
[2022-09-22] MEDS: Folic Acid 1 MG Tablet 2 MG PO (09:07)
[2022-09-22] MEDS: Multivitamin (Healthy Eyes) Capsule 1 CAP PO ×2 (09:07→17:29)
[2022-09-22] MEDS: Docusate Sodium 100 MG Capsule PO (09:07)
[2022-09-22] MEDS: Ferrous Sulfate 325 MG Tablet PO (09:07)
[2022-09-22] MEDS: BRIMONIDINE 0.2% 5ML BOTTLE 1 DRP EACH EYE ×2 (09:08→20:51)
[2022-09-22] MEDS: Losartan Potassium 25 MG Tablet PO (09:08)
[2022-09-22] MEDS: Ipratropium Bromide 0.06% NASAL SPRAY 2 SPRAY NASAL (09:09)
[2022-09-22] MEDS: Ensure Plus High Protein 120 ML LIQUID PO ×4 (09:10→20:51)
[2022-09-22] MEDS: APIXABAN 2.5 MG TABLET (WCH) PO ×2 (09:10→20:52)
[2022-09-22] MEDS: Polyethylene Glycol 3350 17 GM PACKET PO (09:10)
[2022-09-22] MEDS: guaiFENesin 1,200 MG Tablet 1200 MG PO ×2 (09:11→20:51)
--- NOTE | 2022-09-22 12:25 | PN.HOSP_ITS ---
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 Objective Data Objective Data Vital Signs: Vital Signs Temp Pulse Resp BP Pulse Ox O2 Del Method O2 Flow Rate 97.8 F 92 32 H 146/82 H 94 Nasal Cannula 2 09/22/22 09:40 09/22/22 11:00 09/22/22 09:40 09/22/22 09:40 09/22/22 09:40 09/22/22 09:40 09/22/22 09:40 FiO2 35 09/21/22 22:10 Oxygen Flow Rate (L/min) 2 Oxygen Delivery Method Nasal Cannula Weight: 47.9 kg Body Mass Index (BMI) 19.4 Intake & Output: Intake and Output for Last 24 Hours 09/20/22 09/21/22 09/22/22 23:59 23:59 23:59 Intake Total 970 / 970 800 / 800 Output Total 600 / 600 300 / 300 250 / 250 Balance 370 / 370 500 / 500 -250 / -250 Lab / Micro Data Result Diagrams: 09/22/22 05:33 09/22/22 05:33 Labs: Laboratory Results - last 24 hr 09/22/22 05:33: WBC 12.3 H, RBC 4.44, Hgb 13.7, Hct 43.8, MCV 98.6, MCH 30.9, MCHC 31.3 L, RDW Std Deviation 51.1 H, RDW Coeff of Niranjan 14.1, Plt Count 270, MPV 10.6, Immature Gran % (Auto) 0.700, Neut % (Auto) 91.8 H, Lymph % (Auto) 5.3 L, [place] % (Auto) 2.1, Eos % (Auto) 0.0, Baso % (Auto) 0.1, Absolute Neuts (auto) 11.3 H, Absolute Lymphs (auto) 0.65 L, Nucleated RBC % 0 09/22/22 05:33: Sodium 136, Potassium 4.0, Chloride 92 L, Carbon Dioxide 40.0 H, Anion Gap 4 L, BUN 45 H, Creatinine 1.37 H, Estim Creat Clear Calc 21.88, Est GFR (MDRD) Af Amer 47 L, Est GFR (MDRD) Non-Af 39 L, BUN/Creatinine Ratio 32.8 H , Glucose 172 H, Calcium 11.0 H Micro: Microbiology 09/19/22 22:55 Mucosa - Nasopharyngeal Respiratory Panel (PCR) - Final 09/19/22 21:08 Nasal Secretion SARS-CoV-2 Antigen (Rapid) - Final Physical Exam Narrative GENERAL: Dyspneic at rest, frail looking HEENT: Atraumatic; normocephalic EYES; Anicteric, Normal Conjunctiva NECK; supple, normal thyroid, RESPIRATORY: Diminished to auscultation CARDIOVASCULAR: Regular S1 S2, GI: soft, normoactive bowel sounds, : No Renal angle tenderness; EXTREMITIES: No edema, no clubbing, MUSCULOSKELETAL: no muscle wasting NEURO: Awake; no lateralizing signs. 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 Acute hypoxia ? Multifactorial including heart failure with preserved ejection fraction as well as suspected underlying COPD. CT of the chest obtained did not show any evidence of pulmonary embolism patient was however found to have mild atelectasis as well as mucous plugging in the lower lobes. Patient has been managed with noninvasive ventilation. Also added chest vest therapy 2. Heart failure ? With preserved ejection fraction ? Echo obtained did show EF of 65% 3. Elevated troponin ? Secondary to demand ischemia from patient hypoxia 4. Chronic kidney disease stage IIIb ? Patient kidney function close to baseline 5. Paroxysmal A. fib ? Rate controlled on metoprolol on systemic anticoagulation with apixaban did continue 6. Hypertension - Blood pressure controlled, home medications continued with dose adjustment as needed 7. Hypothyroidism - Patient is on levothyroxine home dose continued 8. GERD Patient is on PPI 10. History of Schatzki's ring ? Stable 11. Rheumatoid arthritis ? Patient is on Humira plan is to resume as outpatient 12. DVT prophylaxis ? Patient is on apixaban 13. Physical deconditioning - Requested for PT OT eval and social media sr strategy manager to assist with discharge planning CODE STATUS -DNR CCA no intubation Charges/Coding Visit Charges Inpatient E&M: 37111 Subs Hosp L2
--- NOTE | 2022-09-22 12:37 | EX.PCM.CONCC ---
Assessment & Plan Assessment/Plan (1) Hypoxia: PLAN: Plan RECOMMENDATIONS: 1. Wean supplemental oxygen to maintain saturations at or above 90%. 2. Diuresis as tolerated by hemodynamics and renal function. 3. Continue bronchodilators and steroids. 4. Start empiric antimicrobials and send sputum for culture. 5. Obtain arterial blood gas. 6. Encourage incentive spirometer use and mobilize patient as tolerated. IMPRESSIONS: 1. Shortness of breath and hypoxemia There was initial concern for acute decompensated heart failure with preserved ejection fraction. The patient has been diuresed with subsequent improvement in her respiratory symptoms. However, she does continue to require supplemental oxygen at 2 L/min to maintain saturations. CTA chest was negative for pulmonary embolism. There was some residual mucus plugging and consolidation left lower lobe. Therefore, it is reasonable to start empiric antimicrobials, while awaiting sputum culture results. In addition, I am going to obtain an arterial blood gas. It is certainly plausible that the patient has underlying pulmonary hypertension, in light of her enlarged pulmonary artery on CTA chest. The patient will require further work-up from a pulmonary perspective on an outpatient basis including PFTs. 2. History of chronic kidney disease/GERD/hiatal hernia/paroxysmal atrial fibrillation/hypothyroidism/rheumatoid arthritis Complicates care, management, recovery and prognosis. Continue home medications as indicated. This note was generated with [employer] dictation software. It may contain incorrect words, spelling, and punctuation that were not noted in checking the note before signing. HPI Consult Data Date of Consult: 09/23/22 HPI Narrative Reason for Consultation: Hypoxia HPI Narrative: The patient is an 86-year-old female, with a history as outlined below, who presented to the emergency department after her initial outpatient evaluation in the pulmonary medicine clinic with shortness of breath and hypoxemia. The patient has been evaluated by Dr. Nassar in the pulmonary medicine clinic on September 19. In the office, she was noted to be dyspneic, using satellite instruction facilitator muscles and desaturated to 82% on room air off cannula. The patient has a documented smoking history of 26 pack years, having quit completely in 2005. Her medical history is significant for atrial fibrillation and heart failure preserved ejection fraction, along with rheumatoid arthritis on Humira. On presentation to the emergency department, the patient was noted to be afebrile and hemodynamically stable. Initial laboratory evaluation revealed a white blood cell count of 15,000. Coagulation profile was within normal limits. Chemistry profile was notable for a bicarbonate of 42 and creatinine of 1.24. BNP was only noted to be 125. Troponin was mildly elevated at 91. Chest x-ray demonstrated hyperinflated lung bailey. Echocardiogram dated September 20 demonstrated indeterminate diastolic function with an ejection fraction of 65% and a pulmonary artery systolic pressure of 40 to 45 mmHg. The left atrium was noted to be moderately enlarged. CTA chest completed the same day demonstrated no evidence of PE. However, there was left lower lobe mucous plugging and residual opacities. There was also evidence of main pulmonary artery enlargement. The patient was admitted to the hospital and placed on diuretics, bronchodilators and steroids. The patient is currently maintaining appropriate oxygen saturations on 2 L/min via nasal cannula. [facility] Medical History Chronic cough Chronic respiratory failure with hypoxia Diastolic CHF, acute on chronic Dilation of esophagus Esophageal dysphagia Former smoker GERD (gastroesophageal reflux disease) Glaucoma Hiatal hernia History of deviated nasal septum History of diverticulitis History of femur fracture History of rectocele Hypothyroidism Low iron Macular degeneration Restless legs Rheumatoid arthritis Smoker within last 12 months Home Medications ipratropium bromide 42 mcg (0.06 %) nasal spray 2 sprays DAILY nasal drainage 10/08/17 [History Last Taken 09/19/22] latanoprost 0.005 % eye drops 1 drp QHS glaucoma 10/08/17 [History Last Taken 09/18/22] Premarin 1 applic PO QWEEK APPRENTICE TECHNICIAN 01/23/19 [History Last Taken Unknown] adalimumab 40 mg/0.8 mL subcutaneous syringe kit (Humira) 40 mg SQ Q14D RA 01/23/19 [History Last Taken 09/17/22] calcium carbonate 500 mg calcium (1,250 mg) chewable tablet 500 mg PO DAILY supplement 01/23/19 [History Last Taken 09/18/22] folic acid 1 mg tablet 2 tab PO DAILY supplement 01/23/19 [History Last Taken 09/18/22] cholecalciferol (vitamin D3) 25 mcg (1,000 unit) tablet 400 unit PO DAILY supplement 08/12/19 [History Last Taken 09/18/22] PreserVision AREDS-2 2 cap PO/SL DAILY eyes 08/19/21 [History Last Taken 09/18/22] brimonidine 0.2 % eye drops 1 drp EACH EYE BID eye 08/19/21 [History Last Taken 09/19/22] levothyroxine 25 mcg capsule 25 mcg PO DAILY thyroid 08/19/21 [History Last Taken 09/19/22] ropinirole 0.25 mg tablet 0.25 mg PO DAILY legs 08/19/21 [History Last Taken 09/18/22] ondansetron 8 mg disintegrating tablet 8 mg PO Q8H PRN nausea and vomiting #30 tabs 02/19/22 [Rx Last Taken Unknown] apixaban 2.5 mg tablet (Eliquis) 2.5 mg PO BID blood thinner 09/19/22 [History Last Taken 09/18/22] bumetanide 0.5 mg tablet 0.5 mg PO DAILY diuretic 09/19/22 [History Last Taken 09/19/22] docusate sodium 100 mg capsule (Colace) 100 mg PO Q OTHER DAY constipation 09/19/22 [History Last Taken Unknown] ferrous sulfate 142 mg (45 mg iron) tablet,extended release (Slow Release Iron) 142 mg PO DAILY supplement 09/19/22 [History Last Taken 09/18/22] losartan 25 mg tablet 25 mg PO DAILY bp 09/19/22 [History Last Taken 09/18/22] pantoprazole 40 mg tablet,delayed release (Protonix) 40 mg PO DAILY gerd 09/19/22 [History Last Taken 09/18/22] prednisolone sodium phosphate 15 mg disintegrating tablet 15 mg PO DAILY lungs 09/19/22 [History Last Taken 09/19/22] spironolactone 25 mg tablet 25 mg PO DAILY bp 09/19/22 [History Last Taken 09/18/22] Allergy/AdvReac Type Severity Reaction Status Date / Time metronidazole [From Flagyl] Allergy Hives Verified 09/19/22 14:05 acetaminophen AdvReac Nausea/Vom/ Verified 09/19/22 14:05 [From Darvocet-N] Diarrhea codeine AdvReac Vomiting Verified 09/19/22 14:05 hydrocodone [From Vicodin] AdvReac Vomiting Verified 09/19/22 14:05 naproxen [From Aleve] AdvReac Nausea/Vom/ Verified 09/19/22 14:05 Diarrhea oxycodone [From Percocet] AdvReac Nausea/Vom/ Verified 09/19/22 14:05 Diarrhea propoxyphene AdvReac Nausea/Vom/ Verified 09/19/22 14:05 [From Darvocet-N] Diarrhea Family History Mother Dementia Father Heart disease Other Diabetes HLD (hyperlipidemia) Surgical History History of abdominal aortic aneurysm (AAA) repair History of appendectomy History of carpal tunnel release of both wrists History of colonoscopy History of dental surgery History of hysterectomy History of knee surgery History of left knee replacement History of reconstructive repair of rectocele Social History household members: none Smoking Status: Former smoker alcohol intake: never substance use type: does not use ROS ROS Narrative 10 systems reviewed with pertinent positives as noted in the HPI above. Physical Exam Const alert and oriented x3 General Appearance: cooperative HEENT normocephalic and head/scalp atraumatic Eyes PERRL, EOMs intact bilaterally and conjunctivae normal Neck supple General: trachea midline Chest inspection of chest normal Resp Effort and Inspection: tachypneic Auscultation: diminished lung sounds; Negative for rales, rhonchi or wheezes Cardio regular rate and regular rhythm GI normal to inspection, nondistended, normoactive bowel sounds Extremity no clubbing, cyanosis or edema Skin no rashes or lesions noted Neuro oriented x3, CN's II-XII intact bilaterally and moves all extremities Psych Mood & Affect: anxious Lab / Micro Data Result Diagrams: 09/22/22 05:33 09/22/22 05:33 Labs: Laboratory Results - last 24 hr 09/22/22 05:33: WBC 12.3 H, RBC 4.44, Hgb 13.7, Hct 43.8, MCV 98.6, MCH 30.9, MCHC 31.3 L, RDW Std Deviation 51.1 H, RDW Coeff of Niranjan 14.1, Plt Count 270, MPV 10.6, Immature Gran % (Auto) 0.700, Neut % (Auto) 91.8 H, Lymph % (Auto) 5.3 L, [place] % (Auto) 2.1, Eos % (Auto) 0.0, Baso % (Auto) 0.1, Absolute Neuts (auto) 11.3 H, Absolute Lymphs (auto) 0.65 L, Nucleated RBC % 0 09/22/22 05:33: Sodium 136, Potassium 4.0, Chloride 92 L, Carbon Dioxide 40.0 H, Anion Gap 4 L, BUN 45 H, Creatinine 1.37 H, Estim Creat Clear Calc 21.88, Est GFR (MDRD) Af Amer 47 L, Est GFR (MDRD) Non-Af 39 L, BUN/Creatinine Ratio 32.8 H, Glucose 172 H, Calcium 11.0 H Charges/Coding Visit Charges Inpatient E&M: 31303 Init Hosp L3
[2022-09-22 13:50] LABS: Allen Test Positive; Base Excess 16 mmol/L (-2 to +2); Bicarbonate 39.7 mmol/L (22-26); Blood Gas Specimen Type ART; O2 Delivery Device Cannula; PO2 65 mmHG (75-100); SITE L Radial; SO2 93 % (95-99); Total Carbon Dioxide 42 mmol/L; pCO2 58.1 mmHg (35-45); pH 7.44 (7.35-7.45)
--- NOTE | 2022-09-22 15:50 | CASEMGMT ---
JAY was informed Lucien was going to come to [facility] to assess patient tomorrow. JAY spoke with Alix from [facility] [place]. She did not know patient was in the hospital. She was going to talk with her marketing person and she might be in to see patient tomorrow. She will call JAY tomorrow. Lexie Sawyer RN PROCEDURES LOIS
--- NOTE | 2022-09-22 15:57 | CASEMGMT ---
RN CM in to discuss discharge planning with patient. RN CM reviewed therapy notes, patient ambulated 120ft stand by assist. Daughter inquired about SNF, RN CM explained that patient did well with therapy and not appropriate for SNF. Discussed possible HHC and patient does not want HHC at this time. CM will continue to monitor patient's status and assist with discharge planning.
[2022-09-22] MEDS: Latanoprost 0.005% 1 Bottle 1 DRP OPHTHALMIC (20:52)
[2022-09-22] MEDS: Pramipexole Di-HCl 0.125 MG Tablet PO (20:52)
[2022-09-22] MEDS: 0.9% Saline Lock 10 ML Syringe IV (21:01)
[2022-09-22] MEDS: MELATONIN 3 MG TABLET PO (22:58)
[2022-09-23] VITALS (13 sets, daily range): BP systolic 115–140; BP diastolic 64–84; PULSE 69–98; RESP 16–18; TEMP 36.2–36.8; O2SAT 79–97
[2022-09-23] MEDS: Levothyroxine 25 MCG TABLET PO (06:21)
--- NOTE | 2022-09-23 07:23 | PN.HOSP_ITS ---
Subjective Subjective Patient seen admit to improvement in her overall condition Objective Data Objective Data Vital Signs: Vital Signs Temp Pulse Resp BP Pulse Ox O2 Del Method O2 Flow Rate 97.2 F L 85 18 115/84 H 97 Nasal Cannula 2 09/23/22 04:20 09/23/22 04:20 09/23/22 04:20 09/23/22 04:20 09/23/22 04:20 09/23/22 04:20 09/23/22 04:20 FiO2 35 09/23/22 04:20 Oxygen Flow Rate (L/min) 2 Oxygen Delivery Method Nasal Cannula Weight: 48.6 kg Body Mass Index (BMI) 19.4 Intake & Output: Intake and Output for Last 24 Hours 09/21/22 09/22/22 09/23/22 23:59 23:59 23:59 Intake Total 800 / 800 530 / 650 170 / 170 Output Total 300 / 300 250 / 250 Balance 500 / 500 280 / 400 170 / 170 Lab / Micro Data Result Diagrams: 09/22/22 05:33 09/22/22 05:33 Micro: Microbiology 09/22/22 00:05 Sputum, Expectorated/Coughed Gram Stain - Final 09/19/22 22:55 Mucosa - Nasopharyngeal Respiratory Panel (PCR) - Final 09/19/22 21:08 Nasal Secretion SARS-CoV-2 Antigen (Rapid) - Final ABG Data ABG results: ABG 09/22/22 13:43 Specimen Type ART Sample Site L Radial pH 7.44 Bicarbonate Actual 39.7 H Total CO2 42 Base Excess 16 H O2 Saturation 93 L ABG pCO2 58.1 H ABG pO2 65 L Brett Test Positive O2 Delivery Device Cannula Liter Flow 2.0 Physical Exam Narrative GENERAL: frail looking HEENT: Atraumatic; normocephalic EYES; Anicteric, Normal Conjunctiva NECK; supple, normal thyroid, RESPIRATORY: Diminished to auscultation CARDIOVASCULAR: Regular S1 S2, GI: soft, normoactive bowel sounds, : No Renal angle tenderness; EXTREMITIES: No edema, no clubbing, MUSCULOSKELETAL: no muscle wasting NEURO: Awake; no lateralizing signs. 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 Acute hypoxia ? Multifactorial including heart failure with preserved ejection fraction as well as suspected underlying COPD. CT of the chest obtained did not show any evidence of pulmonary embolism patient was however found to have mild atelectasis as well as mucous plugging in the lower lobes. Patient has been managed with noninvasive ventilation. Also added chest vest therapy 2. Acute HFpEF ? With preserved ejection fraction ? Echo obtained did show EF of 65% 3. Elevated troponin ? Secondary to demand ischemia from patient hypoxia 4. Chronic kidney disease stage IIIb ? Patient kidney function close to baseline 5. Paroxysmal A. fib ? Rate controlled on metoprolol on systemic anticoagulation with apixaban did continue 6. Hypertension - Blood pressure controlled, home medications continued with dose adjustment as needed 7. Hypothyroidism - Patient is on levothyroxine home dose continued 8. GERD Patient is on PPI 10. History of Schatzki's ring ? Stable 11. Rheumatoid arthritis ? Patient is on Humira plan is to resume as outpatient 12. DVT prophylaxis ? Patient is on apixaban 13. Physical deconditioning - Requested for PT OT eval and social sciences research scientist to assist with discharge planning 14. Chronic hypoxic respiratory failure ? Patient is on baseline home oxygen CODE STATUS -DNR CCA no intubation Charges/Coding Visit Charges Inpatient E&M: 20250 Subs Hosp L2
[2022-09-23] MEDS: Ipratropium/Albuterol Sulfate 3 ML AMPUL.NEB INHALATION ×3 (07:24→14:48)
--- NOTE | 2022-09-23 07:35 | PN.CC_ITS ---
Assessment & Plan Assessment/Plan (1) Hypoxia: PLAN: Plan RECOMMENDATIONS: 1. Wean supplemental oxygen to maintain saturations at or above 90%. 2. Diuresis as tolerated by hemodynamics and renal function. 3. Continue bronchodilators and steroids. 4. Transition to Levaquin to complete a 7-day treatment course. 5. Encourage incentive spirometer use and mobilize patient as tolerated. 6. The patient should be discharged home on a stable diuretic regimen and supplemental oxygen. She will require outpatient pulmonary follow-up in 2 weeks. 7. The patient may eventually require right heart catheterization and secondary work-up for pulmonary hypertension, all of which can be completed on an outpatient basis. Pulmonary function study should also be completed. IMPRESSIONS: 1. Shortness of breath and hypoxemia There was initial concern for acute decompensated heart failure with preserved ejection fraction. The patient has been diuresed with subsequent improvement in her respiratory symptoms. However, she does continue to require supplemental oxygen at 2 L/min to maintain saturations. CTA chest was negative for pulmonary embolism. There was some residual mucus plugging and consolidation left lower lobe. Therefore, antimicrobials were initiated. The patient can be transition to Levaquin, for my perspective, to complete a 7-day treatment course. The patient did have an enlarged pulmonary artery on CTA chest along with evidence of pulmonary hypertension on surface echocardiogram. I would recommend that she be ambulated in the hallway to assess her supplemental oxygen need, prior to consideration for discharge home. Ultimately, the patient will require follow- up in the pulmonary medicine clinic in [address] Nassar. She may eventually require a right heart catheterization and secondary work-up for pulmo nary hypertension, including PFTs, all of which can be completed on an outpatient basis. The patient should be discharged home on a stable diuretic regimen. 2. History of chronic kidney disease/GERD/hiatal hernia/paroxysmal atrial fibrillation/hypothyroidism/rheumatoid arthritis Complicates care, management, recovery and prognosis. Continue home medications as indicated. This note was generated with [employer] dictation software. It may contain incorrect words, spelling, and punctuation that were not noted in checking the note before signing. Subjective Subjective The patient was seen and examined at the bedside this morning. Events from the last 24 hours have been reviewed. The patient is currently afebrile, hemodynamically stable and maintaining appropriate oxygen saturations on 2 L/min via nasal cannula. ABG obtained yesterday demonstrated a pH of 7.4 with a PCO2 of 58 and PO2 of 65. The patient is currently sitting in her bedside recliner and denies any resting dyspnea. Objective Data Objective Data The patient's most recent lab work, culture data and imaging studies have all been personally reviewed. Surface echocardiogram demonstrated an ejection fraction of 65% with indeterminate diastolic function and a pulmonary artery systolic pressure of 40 to 45 mmHg. The left atrium was moderately enlarged. Sputum culture is currently pending. Respiratory viral panel was negative. Vital Signs: Vital Signs Temp Pulse Resp BP Pulse Ox O2 Del Method O2 Flow Rate 97.2 F L 90 17 115/84 H 94 Venturi Mask 2 09/23/22 04:20 09/23/22 07:26 09/23/22 07:26 09/23/22 04:20 09/23/22 07:26 09/23/22 07:26 09/23/22 07:26 FiO2 35 09/23/22 04:20 Oxygen Flow Rate (L/min) 2 Oxygen Delivery Method Venturi Mask Weight: 107 lb 2.314 oz Body Mass Index (BMI) 19.4 Intake & Output: Intake and Output for Last 24 Hours 09/21/22 09/22/22 09/23/22 23:59 23:59 23:59 Intake Total 800 / 800 530 / 650 290 / 290 Output Total 300 / 300 250 / 250 Balance 500 / 500 280 / 400 290 / 290 Lab / Micro Data Attestation: I reviewed the patient's lab results. Result Diagrams: 09/22/22 05:33 09/22/22 05:33 Micro: Microbiology 09/22/22 00:05 Sputum, Expectorated/Coughed Gram Stain - Final 09/19/22 22:55 Mucosa - Nasopharyngeal Respiratory Panel (PCR) - Final 09/19/22 21:08 Nasal Secretion SARS-CoV-2 Antigen (Rapid) - Final ABG Data ABG results: ABG 09/22/22 13:43 Specimen Type ART Sample Site L Radial pH 7.44 Bicarbonate Actual 39.7 H Total CO2 42 Base Excess 16 H O2 Saturation 93 L ABG pCO2 58.1 H ABG pO2 65 L Brett Test Positive O2 Delivery Device Cannula Liter Flow 2.0 Physical Exam Const alert and oriented x3 Constitutional Narrative: Sitting in bedside recliner. General Appearance: cooperative HEENT normocephalic and head/scalp atraumatic Eyes PERRL, EOMs intact bilaterally and conjunctivae normal Neck supple General: trachea midline Chest inspection of chest normal Resp Auscultation: diminished lung sounds; Negative for rales, rhonchi or wheezes Cardio regular rate and regular rhythm GI normal to inspection, nondistended, normoactive bowel sounds Extremity no clubbing, cyanosis or edema Skin no rashes or lesions noted Neuro oriented x3, CN's II-XII intact bilaterally and moves all extremities Psych cooperative Charges/Coding Visit Charges Inpatient E&M: 20543 Subs Hosp L2
[2022-09-23] MEDS: Multivitamin (Healthy Eyes) Capsule 1 CAP PO (09:52)
[2022-09-23] MEDS: Ferrous Sulfate 325 MG Tablet PO (09:52)
[2022-09-23] MEDS: Pantoprazole Sodium 40 MG Tablet PO (09:52)
[2022-09-23] MEDS: Calcium (Elemental) 500 MG Tablet PO (09:52)
[2022-09-23] MEDS: Losartan Potassium 25 MG Tablet PO (09:52)
[2022-09-23] MEDS: guaiFENesin 1,200 MG Tablet 1200 MG PO (09:52)
[2022-09-23] MEDS: Ipratropium Bromide 0.06% NASAL SPRAY 2 SPRAY NASAL (09:53)
[2022-09-23] MEDS: BRIMONIDINE 0.2% 5ML BOTTLE 1 DRP EACH EYE (09:53)
[2022-09-23] MEDS: APIXABAN 2.5 MG TABLET (WCH) PO (09:53)
[2022-09-23] MEDS: Folic Acid 1 MG Tablet 2 MG PO (09:53)
[2022-09-23] MEDS: Spironolactone 25 MG Tablet PO (09:53)
[2022-09-23] MEDS: Ensure Plus High Protein 120 ML LIQUID PO (09:54)
--- NOTE | 2022-09-23 10:03 | PCM.DC.SUM ---
Providers Date of Admission: 09/19/22 Primary Care Physician: JUAN C Weeks Consultations 09/21/22 15:20 Consult: Watch Supervisor / Pulmonary Medicine Routine Consulting Provider: Pulmonary Medicine sahara Hayden Reason for Consult: Hypoxia EMERGENT Consult: No MD Notified: Yes Date Notified: 09/21/22 Time Notified: 15:25 Method of Notification: Text Reason For Visit: ACUTE COPD EXACERBATION Diagnosis Discharge Diagnosis (1) Hypoxia: Status: Acute Code(s): R09.02 - Hypoxemia (2) Shortness of breath: Status: Acute Code(s): R06.02 - Shortness of breath (3) Elevated troponin: Status: Acute Code(s): R77.8 - Other specified abnormalities of plasma proteins Plan Patient is an 86-year-old lady who was sent from her lime [employer] office with significant hypoxia 1. Acute hypoxia ? Multifactorial including heart failure with preserved ejection fraction as well as suspected underlying COPD. CT of the chest obtained did not show any evidence of pulmonary embolism patient was however found to have mild atelectasis as well as mucous plugging in the lower lobes. Patient has been managed with noninvasive ventilation. Also added chest vest therapy ? Patient was discharged on Augmentin patient will follow-up with pulmonary medicine as outpatient 2. Acute on chronic HFpEF ? With preserved ejection fraction ? Echo obtained did show EF of 65% ? Patient responded to diuretic therapy 3. Elevated troponin ? Secondary to demand ischemia from patient hypoxia 4. Chronic kidney disease stage IIIb ? Patient kidney function close to baseline 5. Paroxysmal A. fib ? Rate controlled on metoprolol on systemic anticoagulation with apixaban did continue 6. Hypertension - Blood pressure controlled, home medications continued with dose adjustment as needed 7. Hypothyroidism - Patient is on levothyroxine home dose continued 8. GERD Patient is on PPI 10. History of Schatzki's ring ? Stable 11. Rheumatoid arthritis ? Patient is on Humira plan is to resume as outpatient 12. DVT prophylaxis ? Patient is on apixaban 13. Physical deconditioning - Requested for PT OT eval and social service technician to assist with discharge planning 14. Chronic hypoxic respiratory failure ? Patient is on baseline home oxygen CODE STATUS -DNR CCA no intubation Medications at Discharge Home Medications ipratropium bromide 42 mcg (0.06 %) nasal spray 2 sprays DAILY nasal drainage 10/08/17 latanoprost 0.005 % eye drops 1 drp QHS glaucoma 10/08/17 Premarin 1 applic PO QWEEK IRON MOLDER HELPER 01/23/19 adalimumab 40 mg/0.8 mL subcutaneous syringe kit (Humira) 40 mg SQ Q14D RA 01/23/19 calcium carbonate 500 mg calcium (1,250 mg) chewable tablet 500 mg PO DAILY supplement 01/23/19 folic acid 1 mg tablet 2 tab PO DAILY supplement 01/23/19 cholecalciferol (vitamin D3) 25 mcg (1,000 unit) tablet 400 unit PO DAILY supplement 08/12/19 PreserVision AREDS-2 2 cap PO/SL DAILY eyes 08/19/21 brimonidine 0.2 % eye drops 1 drp EACH EYE BID eye 08/19/21 levothyroxine 25 mcg capsule 25 mcg PO DAILY thyroid 08/19/21 ropinirole 0.25 mg tablet 0.25 mg PO DAILY legs 08/19/21 ondansetron 8 mg disintegrating tablet 8 mg PO Q8H PRN nausea and vomiting #30 tabs 02/19/22 apixaban 2.5 mg tablet (Eliquis) 2.5 mg PO BID blood thinner 09/19/22 bumetanide 0.5 mg tablet 0.5 mg PO DAILY diuretic 09/19/22 docusate sodium 100 mg capsule (Colace) 100 mg PO Q OTHER DAY constipation 09/19/22 ferrous sulfate 142 mg (45 mg iron) tablet,extended release (Slow Release Iron) 142 mg PO DAILY supplement 09/19/22 losartan 25 mg tablet 25 mg PO DAILY bp 09/19/22 pantoprazole 40 mg tablet,delayed release (Protonix) 40 mg PO DAILY gerd 09/19/22 prednisolone sodium phosphate 15 mg disintegrating tablet 15 mg PO DAILY lungs 09/19/22 spironolactone 25 mg tablet 25 mg PO DAILY bp 09/19/22 amoxicillin 500 mg-potassium clavulanate 125 mg tablet (Augmentin) 1 tab PO BID #14 tabs 09/23/22 Hospital Course Summary of Care Provided Minutes Spent on Discharge: 40 Physical Exam Narrative GENERAL: frail looking HEENT: Atraumatic; normocephalic EYES; Anicteric, Normal Conjunctiva NECK; supple, normal thyroid, RESPIRATORY: Diminished to auscultation CARDIOVASCULAR: Regular S1 S2, GI: soft, normoactive bowel sounds, : No Renal angle tenderness; EXTREMITIES: No edema, no clubbing, MUSCULOSKELETAL: no muscle wasting NEURO: Awake; no lateralizing signs. SKIN: No Rash PSYCH; Flat affect Weight / BMI Weight Weight: 48.6 kg Body Mass Index (BMI) 19.4 ABG / Lab / Microbiology Data Result Diagrams: 09/22/22 05:33 09/22/22 05:33 Microbiology: Microbiology 09/22/22 00:05 Sputum, Expectorated/Coughed Gram Stain - Final 09/22/22 00:05 Sputum, Expectorated/Coughed Respiratory Culture - Preliminary Appears to be normal respiratory shanice. Further studies to follow. 09/19/22 22:55 Mucosa - Nasopharyngeal Respiratory Panel (PCR) - Final 09/19/22 21:08 Nasal Secretion SARS-CoV-2 Antigen (Rapid) - Final ABG: ABG 09/22/22 13:43 Specimen Type ART Sample Site L Radial pH 7.44 Bicarbonate Actual 39.7 H Total CO2 42 Base Excess 16 H O2 Saturation 93 L ABG pCO2 58.1 H ABG pO2 65 L Brett Test Positive O2 Delivery Device Cannula Liter Flow 2.0 D/C Instructions Discharge Diet: 2000 mg Sodium Diet Discharge Activity: Return to Normal Activity Call your doctor if you observe: Fever of 101 or Higher, Shortness of breath, Fainting spells and Chest pain Meaningful Use Info Meaningful Use Diagnoses (Choose all that apply): CHF CHF STAR/ARB ordered at discharge?: No Reason STAR/ARB not ordered?: Not indicated Documented LVEF (%): 65 Discharge Plan Admission Admit Date/Time: 09/19/22 15:34 Attending Provider: Rolando Link Primary Care Provider: Junie Lui NP Consulting Providers: Leonie Mendoza ; Mamadou Robles ; Ernie Moser ; Manpreet Nassar ; Amando Gar ; Angelita Herr SHIPPING AND RECEIVING ASSISTANT ; Renetta Case Discharge Orders/Prescriptions Prescriptions: New amoxicillin-pot clavulanate [Augmentin] 500-125 mg tablet 1 tab PO BID Qty: 14 0RF Continued ondansetron 8 mg tablet,disintegrating 8 mg PO Q8H PRN (Reason: nausea and vomiting) Qty: 30 1RF Eliquis 2.5 mg tablet 2.5 mg PO BID Label Comments: was told to hold this over the weekend losartan 25 mg tablet 25 mg PO DAILY bumetanide 0.5 mg tablet 0.5 mg PO DAILY Label Comments: doctor wants her to take 2 tablets twice a day for 2 days then 1 tablet twice a day spironolactone 25 mg tablet 25 mg PO DAILY docusate sodium [Colace] 100 mg capsule 100 mg PO Q OTHER DAY Slow Release Iron 142 mg (45 mg iron) tablet extended release 142 mg PO DAILY latanoprost 0.005 drops 1 drp Each Eye QHS Label Comments: glaucoma ipratropium bromide 0.06 spray,non-aerosol 2 sprays NARES DAILY Label Comments: nasal drainage folic acid 1 MG tablet 2 tab PO DAILY Label Comments: TAKE 2 TABLETS BY MOUTH EVERY DAY calcium carbonate 500 MG tablet,chewable 500 mg PO DAILY Humira 40 MG/0.8 ML syringe kit 40 mg SQ Q14D Premarin 1 applic PO QWEEK Rx Instructions: twice weekly cholecalciferol (vitamin D3) 1,000 UNIT tablet 400 unit PO DAILY ropinirole 0.25 mg Tablet 0.25 mg PO DAILY brimonidine 0.2 % Drops 1 drp EACH EYE BID levothyroxine 25 mcg Capsule 25 mcg PO DAILY PreserVision AREDS-2 2 cap PO/SL DAILY pantoprazole [Protonix] 40 mg tablet,delayed release (DR/EC) 40 mg PO DAILY prednisolone sodium phosphate 15 mg tablet,disintegrating 15 mg PO DAILY Referrals / Follow Up: Junie Lui NP, SHIPPING AND RECEIVING ASSISTANT-C [Primary Care Provider] - Manpreet Nassar MD [Med Staff - Active Staff] - Within 2 Weeks Disposition Disposition (needs filled in before D/C Order can be placed): Home, Self Care Charges/Coding Visit Charges Inpatient E&M: 31989 Disch Hosp
--- NOTE | 2022-09-23 10:31 | NURSING ---
Patient oxygen saturation 95% on 2L NC, removed O2 at MD request to check patient on RA. Went back to check patient fifteen minutes post removal of o2 and patient was 79% on RA. 2L NC reapplied and O2 saturation recovered. Dr. Moser at bedside when RN in room spot checking patient's O2 on RA.
--- NOTE | 2022-09-23 11:44 | CASEMGMT ---
SHIRLEY Thomson from [facility] came and assessed patient. Alix said patient's daughter will be meeting with her later today. JAY let Alix know that physician said he will be discharging patient today. Alix asked that SW fax her patient's discharge information. Plan: patient will return to her apartment at [facility]. Patient's daughter and [facility] are working on the assisted living move. Lexie Sawyer MSW LOIS
[2022-09-23] MEDS: 0.9% Saline Lock 10 ML Syringe IV (13:37)
--- NOTE | 2022-09-23 14:50 | CASEMGMT ---
Patient has order for discharge. RN CM in to follow-up with patient. Patient denies needs at discharge. Patient is on routine home oxygen of 2lpm. RN CM called and left message for daughter to bring portable tank for at discharge. Daughter had no further questions or concerns.
--- NOTE | 2022-09-23 15:23 | CASEMGMT ---
JAY faxed patient's d/c summary and med list to Alix Valentin PARCEL POST CLERK TAX COLLECTION COORDINATOR
== END 2022-09-23 16:55 | disposition home or self-care (01) | DRG 291 ==
LOC: ED 15:41 → PCU 15:56
PROVIDERS: Internal Medicine; Admitting Provider Internal Medicine; Emergency Provider Emergency Medicine; PCP Registered Nurse; Visit Provider Internal Medicine
DX: I13.0 Hypertensive heart and chronic kidney disease with heart failure and stage 1 through stage 4 chronic kidney disease, or unspecified chronic kidney disease (principal); I50.31 Acute diastolic (congestive) heart failure; I24.8 Other forms of acute ischemic heart disease; J96.11 Chronic respiratory failure with hypoxia; I48.20 Chronic atrial fibrillation, unspecified; I27.20 Pulmonary hypertension, unspecified; N18.32 Chronic kidney disease, stage 3b; J44.9 Chronic obstructive pulmonary disease, unspecified; M06.9 Rheumatoid arthritis, unspecified; F41.9 Anxiety disorder, unspecified; K21.00 Gastro-esophageal reflux disease with esophagitis, without bleeding; I35.1 Nonrheumatic aortic (valve) insufficiency; E03.9 Hypothyroidism, unspecified; K44.9 Diaphragmatic hernia without obstruction or gangrene; Z79.01 Long term (current) use of anticoagulants; R77.8 Other specified abnormalities of plasma proteins; Z66 Do not resuscitate; Z87.891 Personal history of nicotine dependence; Z79.1 Long term (current) use of non-steroidal anti-inflammatories (NSAID)
CPT/HCPCS: 36415; 36600; 71045; 71275; 80048; 80053; 82803; 83735; 83880; 84100; 84443; 84484; 85025; 85610; 85730; 87070; 87205; 87633; 87811; 93005; 93306; 94002; 94640; 94667; 94668; 94762; 97162; 97166; 97530; 97535; 97802; 99251; 99285; Q9957; Q9967; A4216; G0463; J1940

== ENCOUNTER → 2022-11-11 | Outpatient (CLI) | payer MEDICARE, OTHER, SELFPAY ==
--- NOTE | 2022-11-11 14:40 | PFTCOMP_ITS ---
COMPLETE PULMONARY FUNCTION TEST INTERPRETATION Brief HPI: Patient is an 87-year-old female, currently under the care of Dr. Nassar, who presents to [facility] for complete pulmonary function tests secondary to diagnosis of nicotine dependence. Respiratory therapist reports good effort and reproducible results. Interpretation: Forced expiration spirometry shows a moderately severe large airways obstructive ventilatory defect with an FEV1 of 56% predicted. There is no significant bronch odilator response by strict ATS criteria. Spirograms are of good quality and plateau slowly, indicating slowly emptying areas of the lungs. The respiratory flow volume loop shows decreased expiratory flow rates at all lung volumes consistent with airway obstruction. Lung volumes by body plethysmography show a normal total lung capacity at 3.62 L, 85% predicted. FRC and RV are elevated out of proportion. Lung volume measurements are consistent with air-trapping. Diffusion capacity by carbon monoxide is decreased at 63% predicted. The airway resistance is elevated. No previous pulmonary function tests were available for review. Impression: Irreversible moderately severe large airways obstructive ventilatory defect with a symmetric reduction diffusing capacity
== END | disposition home or self-care (01) ==
LOC: PSN 09:52
PROVIDERS: PCP Registered Nurse; Visit Provider Internal Medicine
DX: J96.11 Chronic respiratory failure with hypoxia (principal); Z87.891 Personal history of nicotine dependence; J98.4 Other disorders of lung
CPT/HCPCS: 94060; 94726; 94729

== ENCOUNTER → 2022-11-26 | Outpatient (CLI) | payer MEDICARE, OTHER, SELFPAY ==
[2022-11-26 15:35] LABS: Absolute Lymphocyte Count 2.11 X10^3/uL (0.83-4.51); Absolute Neutrophil Count 7.4 X10^3/uL (2.0-7.7); Basophil# 0.13 X10^3/uL; Basophil% 1.2 % (0-1); Eosinophil# 0.33 X10^3/uL; Hematocrit 44.5 % (37-47); Hemoglobin 13.9 g/dL (12.0-15.0); Lymphocyte # 2.11 X10^3/ul (0.83-4.51); Mean Corp Hgb Conc 31.2 g/dL (32-36); Mean Corpuscular Hgb 30.5 pg (27.0-32.0); Mean Corpuscular Volume 97.6 fL (81-99); Mean Platelet Vol. 10.3 fl (6.2-12.0); Monocyte# 0.93 X10^3/uL; Monocyte% 8.4 % (0-10); NRBC Flagged by Analyzer 0 % (0-5); Neutrophil % 66.5 % (47-70); Platelet Count 273 K/mm3 (150-450); RBC Distribution Width CV 14.1 % (11.6-14.6); RBC Distribution Width SD 50.6 fl (35.1-43.9); Red Blood Count 4.56 M/mm3 (4.2-5.4); White Blood Count 11.1 K/mm3 (4.4-11.0)
[2022-11-26 16:06] LABS: ALB/GLOB Ratio 0.9 RATIO (0.9-2.4); AST(SGOT) 21 U/L (15-37); Alanine Aminotransfer ALT/SGPT 24 U/L (13-56); Albumin, Serum 3.4 g/dL (3.2-5.0); Alkaline Phosphatase 61 U/L (45-117); Anion Gap 10 (5-15); BUN 42 mg/dL (7-18); Calcium,Total 9.2 mg/dL (8.5-10.1); Chloride 95 mmol/L (98-107); Creatinine, Serum 1.45 mg/dL (0.55-1.02); EST Glomerular Filtration Rate 36 mL/min (>60); Est Glom Filt Rate - Afr Amer 44 mL/min (>60); Globulin 3.7 g/dL (2.2-4.2); Glucose 138 mg/dL (74-106); Potassium 3.6 mmol/L (3.5-5.1); Protein, Total 7.1 g/dL (6.4-8.2); Sodium Level 138 mmol/L (136-145)
== END | disposition home or self-care (01) ==
PROVIDERS: PCP Registered Nurse; Referring Provider Internal Medicine Rheumatology; Visit Provider Internal Medicine Rheumatology
DX: M06.00 Rheumatoid arthritis without rheumatoid factor, unspecified site (principal); Z79.899 Other long term (current) drug therapy; Z79.52 Long term (current) use of systemic steroids; M15.9 Polyosteoarthritis, unspecified; M47.897 Other spondylosis, lumbosacral region; H35.30 Unspecified macular degeneration; H40.9 Unspecified glaucoma; I10 Essential (primary) hypertension; J30.9 Allergic rhinitis, unspecified; M81.0 Age-related osteoporosis without current pathological fracture; E78.5 Hyperlipidemia, unspecified
CPT/HCPCS: 36415; 80053; 85025